=== PATIENT | female | born 1985 | race Caucasian/White ===

== ENCOUNTER 2017-06-25 08:15 | Emergency (ER) | payer MEDICAID, SELFPAY | END 2017-06-25 10:45 | disposition home or self-care (01) | PROVIDERS: Emergency Provider Family Medicine; Family Provider Family Medicine; Visit Provider Family Medicine | DX: R51 Headache (principal); R11.2 Nausea with vomiting, unspecified; R19.7 Diarrhea, unspecified | CPT/HCPCS: 80053; 81001; 81025; 83690; 84436; 84443; 84479; 85025; 87086; 96365; 96375; 99284; J2405 ==

== ENCOUNTER 2017-06-29 16:19 | Emergency (ER) | payer MEDICAID, SELFPAY | END 2017-06-29 17:20 | disposition home or self-care (01) | PROVIDERS: Emergency Provider Nurse Practitioner Family; Family Provider Family Medicine; Visit Provider Nurse Practitioner Family | DX: R19.7 Diarrhea, unspecified (principal); E78.5 Hyperlipidemia, unspecified; D64.9 Anemia, unspecified; E03.9 Hypothyroidism, unspecified; Z79.899 Other long term (current) drug therapy; Z88.8 Allergy status to other drugs, medicaments and biological substances | CPT/HCPCS: 87507; 99201 ==

== ENCOUNTER 2017-07-22 17:36 | Emergency (ER) | payer MEDICAID, SELFPAY ==
[2017-07-22 18:48] VITALS: BP 137/87; PULSE 68; RESP 20; TEMP 37.1; O2SAT 99; BMI 62.0
--- NOTE | 2017-07-22 19:21 | HMH.EDUTC ---
[facility] [place]ression: Elizabeth infection Disposition: Home, Self-Care Condition on Discharge: Good Instructions: DI for Yeast Infection-Skin, Yeast Infection-Skin Additional Instructions: Use powder as prescribed If you notice that area looks worse follow up with family doctor Apply powder to area and place pillow case to keep skin from touching skin Keep area clean and dry and apply Nystatin as directed Return if needed Prescriptions: Nystatin [Nystatin Topical Powder 30GM] 100,000 gm TP TID #1 bottle Referrals: Nhan Castillo MD [Primary Care Provider] - Time of Disposition: 19:48 Medical Decision Making - Medical Records Medical records reviewed: Yes: I reviewed the patient's medical records. Vital Signs: 07/22/17 18:48 Temperature 98.7 F Temperature Source Temporal Artery Scan Pulse Rate [Brachial] 68 Respiratory Rate 20 Blood Pressure [Right Arm] 137/87 Blood Pressure Mean [Right Arm] 103 Blood Pressure Source [Right Arm] Automatic Cuff Blood Pressure Position [Right Arm] Sitting 02 Sat by Pulse Oximetry 99 Oxygen Delivery Method Room Air - Bertin Inquiry Pt receiving controlled substance: No Bertin was queried for this patient: No [facility] [place] - General Stated complaint: Rash around c section scar Mode of Arrival: Ambulatory Source of Information: Patient Limitations: No Limitations Description of Symptoms (Recalled from Triage Doc. by RN): PT IS C/O INCISION ON STOMACH THAT HAS BEEN HEALED FOR 8+ MONTHS THAT IS NOW RED,IRRITATED AND DRAINING. HEENT Symptoms (Recalled from RN notes): No Resp Symptoms (Recalled from RN notes): No Skin Symptoms (Recalled from RN notes): Yes (RASH) MS Symptoms (Recalled from RN notes): No Functional Status (Recalled from RN notes): NA - History of Present Illness Provider Complaint: Patient states that she noticed that she has some redness, and moist in her old scar States that a friend of hers looked at it and told her they thought it was yeast and that she needed to get it checked - Related Data Home Medications Medication Instructions Recorded Confirmed cholecalciferol (vitamin D3) 2,000 2,000 unit PO ONCE 07/17/17 unit tablet fluticasone 50 mcg/actuation nasal 1 spray INTRANASAL ONCE 07/17/17 spray,suspension levothyroxine 50 mcg tablet PO 07/17/17 loratadine 10 mg tablet 10 mg PO ONCE 07/17/17 mecobalamin (vitamin B12) 1,000 1,000 mcg SUBLINGUAL QHS 07/17/17 mcg disintegrating tablet,sublingual norethindrone (contraceptive) 0.35 0.35 mg PO ONCE 07/17/17 mg tablet sertraline 100 mg tablet 200 mg PO Q24H tab 07/17/17 valacyclovir 500 mg tablet 500 mg PO DAILY PRN tab 07/17/17 Previous Rx's Medication Instructions Recorded Nystatin [Nystatin Topical Powder 100,000 gm TP TID #1 bottle 07/22/17 30GM] Allergies Allergy/AdvReac Type Severity Reaction Status Date / Time ethinyl estradiol Allergy Unknown Unverified 06/20/17 14:41 [From NUVARING] etonogestrel [From NUVARING] Allergy Unknown Unverified 06/20/17 14:41 fluconazole [FLUCONAZOLE] Allergy Unknown Unverified 06/20/17 14:41 guaifenesin [From MUCINEX] Allergy Unknown Unverified 06/20/17 14:41 Penicillins [PENICILLINS] Allergy Unknown Unverified 06/20/17 14:41 Sulfa (Sulfonamide Allergy Unknown Unverified 06/20/17 14:41 Antibiotics) [SULFA (SULFONAMIDE ANTIBIOTICS)] sulfamethoxazole Allergy Unverified 07/17/17 13:52 [From Bactrim] trimethoprim [From Bactrim] Allergy Unverified 07/17/17 13:52 - Worker's Comp Is this a Worker's Comp case?: No [facility] History I have reviewed the patient's past medical history: Yes - *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 Alcohol Intake: never - Psychiatric History Expresses thoughts of harming self/others: None Suicide Plan Description: No Plan ROS Obtained: Yes All systems reviewed & no additional complaints Physical Exam - General General appearance: alert, in no
--- NOTE | 2017-07-22 19:29 | ED_ITS ---
[facility] [place]: Elizabeth infection Disposition: Home, Self-Care Condition on Discharge: Good Instructions: DI for Yeast Infection-Skin, Yeast Infection-Skin Additional Instructions: Use powder as prescribed If you notice that area looks worse follow up with family doctor Apply powder to area and place pillow case to keep skin from touching skin Keep area clean and dry and apply Nystatin as directed Return if needed Prescriptions: Nystatin [Nystatin Topical Powder 30GM] 100,000 gm TP TID #1 bottle Referrals: Nhan Castillo MD [Primary Care Provider] - Time of Disposition: 19:48 Medical Decision Making - Medical Records Medical records reviewed: Yes: I reviewed the patient's medical records. Vital Signs: 07/22/17 18:48 Temperature 98.7 F Temperature Source Temporal Artery Scan Pulse Rate [Brachial] 68 Respiratory Rate 20 Blood Pressure [Right Arm] 137/87 Blood Pressure Mean [Right Arm] 103 Blood Pressure Source [Right Arm] Automatic Cuff Blood Pressure Position [Right Arm] Sitting 02 Sat by Pulse Oximetry 99 Oxygen Delivery Method Room Air - Bertin Inquiry Pt receiving controlled substance: No Bertin was queried for this patient: No [facility] [place] - General Stated complaint: Rash around c section scar Mode of Arrival: Ambulatory Source of Information: Patient Limitations: No Limitations Description of Symptoms (Recalled from Triage Doc. by RN): PT IS C/O INCISION ON STOMACH THAT HAS BEEN HEALED FOR 8+ MONTHS THAT IS NOW RED,IRRITATED AND DRAINING. HEENT Symptoms (Recalled from RN notes): No Resp Symptoms (Recalled from RN notes): No Skin Symptoms (Recalled from RN notes): Yes (RASH) MS Symptoms (Recalled from RN notes): No Functional Status (Recalled from RN notes): NA - History of Present Illness Provider Complaint: Patient states that she noticed that she has some redness, and moist in her old scar States that a friend of hers looked at it and told her they thought it was yeast and that she needed to get it checked - Related Data Home Medications Medication Instructions Recorded Confirmed cholecalciferol (vitamin D3) 2,000 2,000 unit PO ONCE 07/17/17 unit tablet fluticasone 50 mcg/actuation nasal 1 spray INTRANASAL ONCE 07/17/17 spray,suspension levothyroxine 50 mcg tablet PO 07/17/17 loratadine 10 mg tablet 10 mg PO ONCE 07/17/17 mecobalamin (vitamin B12) 1,000 1,000 mcg SUBLINGUAL QHS 07/17/17 mcg disintegrating tablet,sublingual norethindrone (contraceptive) 0.35 0.35 mg PO ONCE 07/17/17 mg tablet sertraline 100 mg tablet 200 mg PO Q24H tab 07/17/17 valacyclovir 500 mg tablet 500 mg PO DAILY PRN tab 07/17/17 Previous Rx's Medication Instructions Recorded Nystatin [Nystatin Topical Powder 100,000 gm TP TID #1 bottle 07/22/17 30GM] Allergies Allergy/AdvReac Type Severity Reaction Status Date / Time ethinyl estradiol Allergy Unknown Unverified 06/20/17 14:41 [From NUVARING] etonogestrel [From NUVARING] Allergy Unknown Unverified 06/20/17 14:41 fluconazole [FLUCONAZOLE] Allergy Unknown Unverified 06/20/17 14:41 guaifenesin [From MUCINEX] Allergy Unknown Unverified 06/20/17 14:41 Penicillins [PENICILLINS] Allergy Unknown Unverified 06/20/17
== END 2017-07-22 19:59 | disposition home or self-care (01) ==
LOC: ER 17:42 → UTC 17:55
PROVIDERS: Emergency Provider Nurse Practitioner; Family Provider Family Medicine; PCP Family Medicine
DX: B37.2 Candidiasis of skin and nail (principal); Z79.3 Long term (current) use of hormonal contraceptives; Z79.51 Long term (current) use of inhaled steroids; Z79.899 Other long term (current) drug therapy; Z88.0 Allergy status to penicillin; Z88.2 Allergy status to sulfonamides; Z88.8 Allergy status to other drugs, medicaments and biological substances
CPT/HCPCS: 99201

== ENCOUNTER → 2017-10-13 11:18 | Outpatient (CLI) | payer MEDICAID, SELFPAY ==
[2017-10-13 12:12] LABS: Hemoglobin A1C 5.1 % (0.0-7.0)
[2017-10-13 12:13] LABS: Basophils % 0.6 % (0.1-2.0); Eosinophils # 0.2 K/mm3 (0.0-0.4); Eosinophils % 3.1 % (0.1-12.0); Hematocrit 40.6 % (37.0-47.0); Lymphocytes # 1.6 K/mm3 (0.7-4.5); Lymphocytes % 27.2 K/mm3 (10-50); Mean Corpuscular HGB Conc 34.6 g/dL (31.8-35.4); Mean Corpuscular Hemoglobin 30.8 pg (27.0-31.2); Mean Corpuscular Volume 89.1 fl (81-99); Mean Platelet Volume 8.5 fl (7.4-10.4); Monocytes # 0.3 K/mm3 (0.1-1.0); Monocytes % 5.4 % (1.7-9.3); Neutrophils # 3.8 K/mm3 (1.8-7.8); Neutrophils % 63.7 % (37.0-80.0); Platelet Count 243 K/mm3 (142-424); Red Blood Count 4.55 M/mm3 (4.20-5.40); Red Cell Distribution Width 12.9 % (11.5-17.5); White Blood Count 5.9 K/mm3 (4.8-10.8)
[2017-10-13 13:05] LABS: Alanine Aminotransferase 35 U/L (12-78); Albumin Level 4.1 gm/dL (3.4-5.0); Albumin/Globulin Ratio 1.2 (1.1-1.8); Alkaline Phosphatase 92 U/L (46-116); Anion Gap 12.4 mEq/L (5-15); Aspartate Amino Transferase 25 U/L (15-37); Bilirubin,Total 0.4 mg/dL (0.2-1.0); Blood Urea Nitrogen 13 mg/dL (7-18); Carbon Dioxide 29 mmol/L (21.0-32.0); Chloride 107 mmol/L (98-107); Chol/HDL Ratio 5.3 (1-3.5); Cholesterol 224 mg/dL (140-200); Creatinine,Serum 0.78 mg/dL (0.55-1.02); Estimated Glomerular Filt Rate 85 ml/min (>60); Ferritin 69 ng/mL (8-388); GFR (African American) 102 ML/MIN (>60); Globulin 3.3 gm/dl (1.3-3.2); Glucose 89 mg/dL (74-106); HDL Cholesterol 42 mg/dL (29-89); Iron 78 ug/dl (28-170); LDL Cholesterol 143 mg/dL (0-130); Phosphorous 3.9 mg/dL (2.4-4.9); Potassium 4.4 mmoL/L (3.5-5.1); Sodium 144 mmol/L (136-145); Thyroid Stimulating Hormone 3.48 uIU/ml (0.358-3.740); Total Protein,Serum 7.4 gm/dL (6.4-8.2); Triglycerides 195 mg/dL (30-200); VLDL Cholesterol 39 mg/dL (0-40)
[2017-10-14 19:05] LABS: Folate 10.6 ng/mL (>3.0); Parathyroid Hormone Intact 51 pg/mL (15-65); Prealbumin 28 mg/dL (14-35); Vitamin D 25 Hydroxy 26.6 ng/mL (30.0-100.0)
[2017-10-18 06:45] LABS: Methylmalonic Acid 112 nmol/L (0-378)
[2017-10-18 16:15] LABS: Vitamin B1 123.9 nmol/L (66.5-200.0)
[2017-10-19 16:25] LABS: Vitamin E Alpha Tocopherol 7.9 mg/L (5.9-19.4)
[2017-10-20 10:39] LABS: Vitamin A 43.8 ug/dL (31.2-89.1)
== END ==
PROVIDERS: Visit Provider Physician Assistant
DX: E78.5 Hyperlipidemia, unspecified (principal); E53.8 Deficiency of other specified B group vitamins; E55.9 Vitamin D deficiency, unspecified; E66.01 Morbid (severe) obesity due to excess calories; G47.33 Obstructive sleep apnea (adult) (pediatric)
CPT/HCPCS: 36415; 80053; 80061; 82131; 82652; 82728; 82746; 83036; 83540; 83735; 83970; 84100; 84134; 84425; 84443; 84446; 84590; 85025

== ENCOUNTER → 2017-11-08 15:55 | Outpatient (POV) | payer MEDICAID, SELFPAY | PROVIDERS: Family Provider Family Medicine; PCP Family Medicine; Visit Provider Family Medicine | DX: Z00.00 Encounter for general adult medical examination without abnormal findings (principal) ==

== ENCOUNTER → 2017-11-21 09:27 | Outpatient (CLI) | payer MEDICAID, SELFPAY ==
--- NOTE | 2017-11-21 09:33 | MR_ITS ---
MR head/brain wo/w con HISTORY: Apical emphysema, memory loss, visual disturbance ITS.REASON: PAPILLEDEMA ORDERING PHYSICIAN: Delroy Johnson MD PATIENT AGE: 32 years Comparison: None TECHNIQUE: Standard multiplanar multiecho sequences are performed without and with gadolinium enhancement. FINDINGS: No midline shift, mass effect, intracranial hemorrhage, hydrocephalus, or enhancing lesions are evident. No evidence of acute infarction.. There is normal keane-white matter differentiation. The ventricles have an unremarkable appearance and are not dilated or slitlike no abnormal white matter signal intensity. The pituitary and optic chiasm are unremarkable. No cerebellar tonsillar ectopia. The cerebellopontine angles, cerebellum, and brainstem are unremarkable. No large aneurysms are evident. Smaller aneurysms may not be seen with this technique and may be better evaluated for with MRA if clinically warranted. There is a 17 mm and a 10 mm retention cyst in the floor the right maxillary sinus. IMPRESSION: 1. Negative MRI of the brain without and with contrast. 2. Right maxillary sinus retention cysts
== END ==
PROVIDERS: Family Provider Family Medicine; PCP Family Medicine
DX: H47.11 Papilledema associated with increased intracranial pressure (principal); H47 Other disorders of optic [2nd] nerve and visual pathways
CPT/HCPCS: 70553; A9576

== ENCOUNTER → 2017-11-24 10:17 | Outpatient (CLI) | payer MEDICAID, SELFPAY ==
--- NOTE | 2017-11-24 10:22 | XR_ITS ---
XR chest 2V Ordering Physician: Cher Barcenas Patient Age: 32 years: Female HISTORY: ITS.REASON: OBSTRUCTIVE SLEEP APNEA, VIT D B DEFICIENCY, MORBID OBESITY TECHNIQUE: PA and lateral chest COMPARISON :May 2016 portable chest FINDINGS Lungs appear clear with nothing definitely acute. Better expansion and lungs appear clear than on the previous May 2016 CXR exam . Heart is normal in size. Elis and mediastinal structures unremarkable. Chest wall unremarkable. Adequate inspiration observed with. Diaphragms down to the anterior fifth rib IMPRESSION: Lungs clear. No active disease.
== END ==
PROVIDERS: PCP Family Medicine; Visit Provider Physician Assistant
DX: G47.33 Obstructive sleep apnea (adult) (pediatric) (principal); E78.5 Hyperlipidemia, unspecified; E55.9 Vitamin D deficiency, unspecified; E53.8 Deficiency of other specified B group vitamins; E66.01 Morbid (severe) obesity due to excess calories
CPT/HCPCS: 71046

== ENCOUNTER → 2018-02-12 08:22 | Outpatient (CLI) | payer MEDICAID, SELFPAY ==
--- NOTE | 2018-02-12 08:24 | MR_ITS ---
MR angio head wo con HISTORY: Pseudotumor cerebri, severe headache, blurred vision with memory loss ITS.REASON: memory loss, headache ORDERING PHYSICIAN: Nati Healy MD PATIENT AGE: 32 years Comparison: 11/21/2017 TECHNIQUE: 3-D [id number] images obtained with 3-D mip and MRV reformats. FINDINGS: No aneurysm, AVM, or major intracranial occlusive process evident. Single shot MRV shows no evidence of sagittal sinus thrombosis. The anterior communicating artery is somewhat tortuous but there is no evidence of aneurysm IMPRESSION: Negative MRA of the brain
== END ==
PROVIDERS: Family Provider Family Medicine; PCP Family Medicine; Visit Provider Specialist
DX: G93.2 Benign intracranial hypertension (principal); R41.3 Other amnesia; R51 Headache
CPT/HCPCS: 70544

== ENCOUNTER → 2018-07-19 10:55 | Outpatient (CLI) | payer MEDICAID, SELFPAY ==
--- NOTE | 2018-07-19 10:57 | US_ITS ---
US transvaginal HISTORY: Chronic pelvic pain, abnormal uterine bleeding ITS.REASON: US T/V- Abnormal bleeding ORDERING PHYSICIAN: Cody Rausch MD PATIENT AGE: 33 years Comparison: None FINDINGS: The uterus is retroverted. The uterus measures 8 x 5.5 x 7 cm with a combined endometrial thickness of 6 mm. Small amount of fluid is present in the endometrial canal. There is an area of heterogeneous echogenicity involving the fundus of the uterus posteriorly measuring 2.8 x 2.3 cm compatible with a uterine fibroid.. No cul-de-sac fluid The left ovary is 3.4 x 1.9 cm with small follicles noted. The right ovary is 3 x 2.6 cm and contains a septated 2.4 x 2 cm cyst. IMPRESSION: 1. Retroverted uterus with a small amount of fluid in the endometrial canal with a 2.8 cm uterine fibroid 2. 2.4 cm complex right ovarian cyst
== END ==
PROVIDERS: PCP Family Medicine; Visit Provider Nurse Practitioner Obstetrics & Gynecology
DX: N92.6 Irregular menstruation, unspecified (principal)
CPT/HCPCS: 76830

== ENCOUNTER → 2018-07-26 16:44 | Outpatient (CLI) | payer MEDICAID, SELFPAY ==
--- NOTE | 2018-07-26 16:54 | XR_ITS ---
EXAM: XR thoracic spine 3V HISTORY: ITS.REASON: ACUTE BILATERAL THORACIC BACK PAIN Comparison: None FINDINGS: There is minimal lower thoracic lumbar curvature convex right. Mild multilevel degenerative disc disease is present in the thoracic spine. No fracture or dislocation. No lytic or blastic change. IMPRESSION: Thoracic spondylosis as described above, no acute finding
--- NOTE | 2018-07-26 16:54 | XR_ITS ---
EXAM: XR cervical spine 3V HISTORY: ITS.REASON: NECK MUSCLE SPASM ORDERING PHYSICIAN: FAZAL Tejeda PATIENT AGE: 33 years COMPARISON: None FINDINGS: Normal alignment. No fracture or dislocation. No lytic or blastic change. No significant degenerative change. The disc spaces are preserved. No evidence of cervical rib IMPRESSION: Negative cervical spine
== END ==
PROVIDERS: PCP Family Medicine; Visit Provider Physician Assistant
DX: M54.6 Pain in thoracic spine (principal); M62.830 Muscle spasm of back
CPT/HCPCS: 72040; 72072

== ENCOUNTER 2018-09-05 15:30 | Outpatient (RCR) | payer MEDICAID, SELFPAY ==
--- NOTE | 2018-07-31 10:50 | HMH.PTOPEV ---
PT Outpatient Evaluation Rehab PT Outpatient Evaluation Start: 07/31/18 09:26 Freq: Status: Active Protocol: Document 07/31/18 10:28 KALEY (Rec: 07/31/18 10:49 PHORNE [id number]) Electronically Signed By Jaspreet Menchaca, PT 07/31/18 10:28 Outpatient Therapy Subjective History Subjective History Pt is a 33 yowf with complaints of B trap pain and tightness which began 3-4 weeks ago. Pt reports going to a doctor 2.5 weeks ago and was prescribed muscle relaxers . Pt did not take them due to the pills size and was not sure if she could due to . Pt then saw another doctor 4 days later who referred to PT. Pt states she is in 4/10 pain at the moment, 4/10 at best and 10/10 at worst in her B traps which refer to lateral ribs. Pt reports tender to palpate along the upper trap area. Pt states pain is sharp and shooting, happens constantly and affects sleep. Pt reports having 7 children that she must take care of, and the kids hang on her neck. Pt seen to have forward head and thoracic kyphosis. Pt reports having gastric sleeve that aided in losing 100 pounds in 7 months, complicated C section, and hip I&D. Pt reports having anxiety, depression, and OCD. Pt was given HEP. Chief Complaint Pain Spasms Stiff Symptom Type Ache Throb Sharp Tingling Shooting Symptoms Relieved By Rest/Positioning Heat Symptoms Aggravated By Bending/Stooping Physical Activity Twisting Walking Lifting Prior Functional Limitations None Current Functional Limitations
--- NOTE | 2018-08-27 11:39 | HMH.RHREAS ---
Rehab Reassessment Rehab OP Re-assessment Start: 08/27/18 11:26 Freq: Status: Active Protocol: Document 08/27/18 11:31 KALEY (Rec: 08/27/18 11:39 PHORNE [id number]) Electronically Signed By Jaspreet Menchaca, PT 08/27/18 11:31 Rehab Re-assessment Subjective Subjective Pt reports having increased pain in upper traps and headaches. After treatment, pt decreased headaches to 0/10 and decreased pain. Objective Objective Notes cervical flexion-26 degrees cervical extension- 25 degrees cervical right rotation- 55 degrees cervical left rotation-50 degrees cervical right SB- 37 degrees Assessment Progress Assessment Progressing as Expected Assessment Notes Pt has increased ROM and MMT. Pt has stated a decrease in pain with movement as well as ROM. Patient goals met Pt has met all 9 short and prison goals. Goals Not Met none Revised Goals STG: Pt will increase cervical ROM 5 degrees in 3 weeks to increase ability to look in all directions. Pt will increase cervical MMT 4/5 in 3 weeks to tolerate home environment. LTG: Pt will increase cervical ROM 10 degrees in 6 weeks to increase ability to look in all directions Pt will increase cervical MMT 4+/5 grade in 6 weeks to tolerate home environment. Plan Plan Cervical ROM, cervical strength, scapular stability, core strength, stretching, modalities as needed, manual therapy as needed, endurance. Frequency of Therapy 2x/week Duration of therapy 6 weeks Time and Billing Re-Eval Time 10 Re-Eval Billing Units 1 PHYSICIAN CERTIFICATION: I certify the specified therapy services for Malathi Schilling are required, authorized, and reviewed every 30 days.
== END 2018-09-05 15:35 | disposition home or self-care (01) ==
LOC: PT 15:30
PROVIDERS: Visit Provider Family Medicine
DX: M62.838 Other muscle spasm (principal); M54.2 Cervicalgia; M54.9 Dorsalgia, unspecified
CPT/HCPCS: 97010; 97014; 97035; 97110; 97140; 97163; 97164; G0283

== ENCOUNTER → 2018-09-21 08:24 | Outpatient (POV) | payer MEDICAID, SELFPAY ==
[2018-09-21 08:43] VITALS: BP 131/80; PULSE 68; RESP 18; O2SAT 99
--- NOTE | 2018-09-21 09:15 | HMH.PMCON ---
Assessment and Plan (1) Headache Current visit: Yes Status: Acute Qualifiers: Headache type: unspecified Headache chronicity pattern: unspecified pattern Intractability: not intractable Qualified Code(s): R51 - Headache Category: Medical Code(s): R51 - Headache (2) Pseudotumor cerebri syndrome Current visit: Yes Status: Acute Category: Medical Code(s): G93.2 - Benign intracranial hypertension - Assessment and plan all Dx Assessment and Plan for all problems:: We will plan on lumbar puncture for this patient which will be diagnostic and therapeutic to obtain opening and closing pressures and cell count differential with Gram stain. This patient has severe anxiety so we will have an IV placed in do conscious sedation with Versed and do this procedure under fluoroscopy. We will schedule this patient next week. HPI - Data of Consult Patient: new to practice Consult date: 09/21/18 Requesting Physician: Adriel Ordaz MD Primary Care Provider: Nhan Castillo MD - Consult Narrative Reason for consult: Consult for lumbar puncture History of present illness: Ms. Schilling is a 33 year old female who is referred by Dr. Healy with diagnosis of pseudotumor cerebri. Patient has a headache all the time. She does have some occasional visual changes. She is sent for lumbar puncture diagnostic and therapeutic to determine opening pressures, cell count differential, Gram stain, closing pressures to see if pressures are abnormal indicative of pseudotumor cerebri. CC: Adriel Ordaz MD [facility] History I have reviewed the patient's past medical history: Yes 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: Reports:: Depression, Ulcer, Urinary Tract Infection Denies:: Cancer, Diabetes Mellitus Type 1, Diabetes Mellitus Type 2, MRSA *Have you ever received a pneumonia vaccine?: No *Have you received a flu vaccine this season?: No Other 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: Reports: Thyroid Disease Other Surgeries: Yes: Bariatric Surgery, , Dilation and Curettage, EGD, Other Amputation: No Fractures: No - *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 Smoking Status: Former smoker Alcohol Intake: never Alcohol Intake Frequency:: other Substance Use Type: denies use *Occupational Status:: unemployed Housing: house Household Members: spouse, family *Travel in the last 8 weeks: None - Psychiatric History Expresses thoughts of harming self/others: None Suicide Plan Description: No Plan Pschychiatric History:: Reports:: Depression Family Hx:: Hypertension, Coronary Artery Disease, Stroke Review of Systems - Review of Systems Review of systems:: pertinent systems reviewed and negative unless documented below - ENT Reports headache(s) Meds Home Medications Medication Instructions Recorded Confirmed Type cholecalciferol (vitamin D3) 2,000 2,000 unit PO ONCE 07/17/17 09/21/18 History unit tablet mecobalamin (vitamin B12) 1,000 1,000 mcg SUBLINGUAL QHS 07/17/17 09/21/18 History mcg disintegrating tablet,sublingual sertraline 100 mg tablet 200 mg PO Q24H tab 07/17/17 09/21/18 History levothyroxine 88 mcg tablet 88 mcg PO DAILY 30 Days #30 10/25/17 09/21/18 History Norethindrone 0.35 mg PO DAILY 09/21/18 09/21/18 History Terconazole 1 appful VAGINAL QHS 09/21/18 09/21/18 History Allergies Allergy/AdvReac Type Severity Reaction Status Date / Time ethinyl estradiol Allergy Unknown Verified 09/21/18 08:51 [From NUVARING] etonogestrel [From NUVARING] Allergy Unknown Verified 09/21/18 08:51 fluconazole [FLUCONAZOLE] Allergy Unknown Verified 09/21/18 08:51 guaifenesin [From MUCINEX] Allergy Unknown Verified 09/21/18 08:51 Penicillins [PENICILLINS] Allergy Unknown Verified 09/21/18 08:51 Sulfa (Sulfonamide Allergy Unknown Verified 09/21/18 08:51 Antibiotics) [SULFA (SULFONAMIDE ANTIBIOTICS)] sulfamethoxazole Allergy Verified 09/21/18 08:51 [From Bactrim] trimethoprim [From Bactrim] Allergy Verified 09/21/18 08:51 Objective
--- NOTE | 2018-09-21 09:20 | P.CONS_ITS ---
Assessment and Plan (1) Headache Current visit: Yes Status: Acute Qualifiers: Headache type: unspecified Headache chronicity pattern: unspecified pattern Intractability: not intractable Qualified Code(s): R51 - Headache Category: Medical Code(s): R51 - Headache (2) Pseudotumor cerebri syndrome Current visit: Yes Status: Acute Category: Medical Code(s): G93.2 - Benign intracranial hypertension - Assessment and plan all Dx Assessment and Plan for all problems:: We will plan on lumbar puncture for this patient which will be diagnostic and therapeutic to obtain opening and closing pressures and cell count differential with Gram stain. This patient has severe anxiety so we will have an IV placed in do conscious sedation with Versed and do this procedure under fluoroscopy. We will schedule this patient next week. HPI - Data of Consult Patient: new to practice Consult date: 09/21/18 Requesting Physician: Adriel Ordaz MD Primary Care Provider: Nhan Castillo MD - Consult Narrative Reason for consult: Consult for lumbar puncture History of present illness: Ms. Schilling is a 33 year old female who is referred by Dr. Healy with diagnosis of pseudotumor cerebri. Patient has a headache all the time. She does have some occasional visual changes. She is sent for lumbar puncture diagnostic and therapeutic to determine opening pressures, cell count differential, Gram stain, closing pressures to see if pressures are abnormal indicative of pseudotumor cerebri. CC: Adriel Ordaz MD [facility] History I have reviewed the patient's past medical history: Yes 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: Reports:: Depression, Ulcer, Urinary Tract Infection Denies:: Cancer, Diabetes Mellitus Type 1, Diabetes Mellitus Type 2, MRSA *Have you ever received a pneumonia vaccine?: No *Have you received a flu vaccine this season?: No Other 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: Reports: Thyroid Disease Other Surgeries: Yes: Bariatric Surgery, , Dilation and Curettage, EGD, Other Amputation: No Fractures: No - *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 Smoking Status: Former smoker Alcohol Intake: never Alcohol Intake Frequency:: other Substance Use Type: denies use *Occupational Status:: unemployed Housing: house Household Members: spouse, family *Travel in the last 8 weeks: None - Psychiatric History Expresses thoughts of harming self/others: None Suicide Plan Description: No Plan Pschychiatric History:: Reports:: Depression Family Hx:: Hypertension, Coronary Artery Disease, Stroke Review of Systems - Review of Systems Review of systems:: pertinent systems reviewed and negative unless documented below - ENT Reports headache(s) Meds Home Medications Medication Instructions Recorded Confirmed Type cholecalciferol (vitamin D3) 2,000 2,000 unit PO ONCE 07/17/17 09/21/18 History unit tablet mecobalamin (vitamin B12) 1,000 1,000 mcg SUBLINGUAL QHS 07/17/17 09/21/18 History mcg disintegrating tablet,sublingual sertraline 100 mg tablet 200 mg PO Q24H tab 07/17/17 09/21/18 History levothyroxine 88 mcg tablet 88 mcg PO DAILY 30 Days #30 10/25/17 09/21/18 History Norethindrone 0.35 mg PO DAILY 09/21/18 09/21/18 History Terconazole 1 appful VAGINAL QHS 09/21/18 09/21/18 History Allergies Allergy/AdvReac Type Severity Reaction Status Date / Time ethinyl estradiol Allergy Unknown Verified 09/21/18 08:5
== END ==
PROVIDERS: PCP Family Medicine; Visit Provider Anesthesiology
DX: R51 Headache (principal); G93.2 Benign intracranial hypertension
CPT/HCPCS: 99201

== ENCOUNTER → 2018-09-28 07:38 | Outpatient (CLI) | payer MEDICAID, SELFPAY ==
--- NOTE | 2018-09-28 09:48 | P.PCN_ITS ---
- Procedure Date: 09/28/18 Time: 09:45 Anesthesiologist:: Adriel Ordaz MD Complications:: None Pre-procedure Diagnosis:: Pseudotumor cerebri Post-procedure Diagnosis:: Same Indications for Procedure:: This patient is a pleasant 33-year-old white female who is referred by Dr. Healy for diagnostic and therapeutic lumbar puncture for suspected pseudotumor cerebri. She is having some muscle spasms with occasional headaches. She has had some visual changes. We will do diagnostic/therapeutic lumbar puncture today. This will be done under fluoroscopy with sedation. Procedure Details:: Lumbar puncture Informed consent was obtained and the risk and benefits of the procedure was explained to the patient. Patient was taken to the procedure room. She was pl aced in left lateral decubitus position. She was prepped under sterile conditions. C-arm fluoroscopy was used to view the L4-L5 interspace. The skin and subtest tissues were anesthetized using lidocaine. A 20-gauge spinal needle was inserted and under fluoroscopic guidance advanced into the L4-5 interspace until clear CSF was obtained. The patient was sedated with 3 mg of Versed just prior to the procedure. Opening pressures were found to be 17 cm of water. Closing pressures were found to be 10 cm of water. We withdrew approximately 12 mL's of clear CSF placed into 4 tubes. Patient tolerated the procedure well with no complications. Plan and Disposition:: We will follow-up with her as needed. Again opening pressures were 17 cm of water and closing pressures were 10 cm of water.
[2018-09-28 11:17] LABS: Total Protein,CSF 40.5 mg/dL (15-45)
[2018-09-28 11:28] LABS: Glucose,CSF 51 mg/dL (40-70); Total Protein,CSF 47.9 mg/dL (15-45)
[2018-09-28 13:40] LABS: Red Blood Cell,CSF 182 cells/uL (0); Volume,CSF 6 mL; White Blood Cell,CSF 1 cells/uL (0-5)
[2018-09-28 13:41] LABS: Volume,CSF 6 mL; White Blood Cell,CSF 7 cells/uL (0-5)
[2018-09-28 13:45] LABS: Mononuclear WBCs,CSF 0 %
[2018-09-28 13:52] LABS: Appearance,CSF Hazy (Clear)
[2018-09-28 13:59] LABS: Red Blood Cell,CSF 1725 cells/uL (0)
[2018-09-28 14:03] LABS: Polynuclear WBCs,CSF 0 %
[2018-09-28 14:11] LABS: Mononuclear WBCs,CSF 1 %; Polynuclear WBCs,CSF 0 %
== END ==
PROVIDERS: PCP Family Medicine; Visit Provider Anesthesiology
DX: G93.2 Benign intracranial hypertension (principal)
CPT/HCPCS: 62270; 82945; 84155; 87070; 87205; 89051

== ENCOUNTER 2018-10-01 09:48 | Outpatient (POV) | payer MEDICAID, SELFPAY ==
[2018-10-01 09:58] VITALS: BP 132/78; PULSE 61; RESP 18; O2SAT 98; BMI 43.9
--- NOTE | 2018-10-01 10:27 | P.CONS_ITS ---
[facility] Pain Management SOAP Note Subjective:: Patient is a pleasant 33-year-old white female who presents today after a lumbar puncture that was on Monday. She states she has had a headache. On further questioning she states she had a headache prior to the lumbar puncture and at this time it just has not gotten any better. Patient states that at first it got better when she laid down however now it does not make a difference what position she is in. Patient has a history of migraines. Patient states she is had the gastric sleeve and is unable to take water. Patient had a total of 3 bottles of water in the last 2 days. Patient has taken a total of 3 individual Tylenols in the last 2 days. Patient states she is still breast-feeding her 2-1/2-year-old and wants to be careful about what she is putting inside her body. She rates her pain today a 7 out of 10. She is describing a diffuse headache. ROS General: no recent weight change, no fever, no sleep disturbances Respiratory: no cough, no shortness of air, no recurring pulmonary infections Cardiovascular/Peripheral Vascular: No chest pain, No palpitations, no edema, no shortness of breath. Gastrointestinal: no incontinence, normal bowel movements reported Genitourinary: no incontinence Musculoskeletal: Headache Psychiatric: normal mood/ affect Neurological: [denies weakness in extremities], [denies balance issues] Objective:: Physical Exam General: Alert and oriented x3, no acute distress, pleasant and cooperative, [on room air] Lungs: Resps E/U, Symmetrical chest expansion, Eyes: PERRL Musculoskeletal: deep tendon reflexes normal, strength in upper and lower extremities [5/5], normal gait noted Neurological: speech clear, helper coordinator equal, no gross sensory deficits Assessment:: Headache Plan:: We will send the patient for fluids and Toradol. I do not believe that a blood patch would be necessary at this time. The patient is in no distress. I will follow-up with the patient in 1 week reassess her symptoms at that time. Dr. Ordaz has reviewed this note and agrees with this plan of care. This note was dictated using voice recognition software and may contain errors or omissions
[2018-10-01 10:58] VITALS: BP 129/77; PULSE 52; RESP 18; TEMP 36.6; O2SAT 99
[2018-10-01 11:03] VITALS: RESP 18
[2018-10-01 12:00] VITALS: BP 126/69; PULSE 59; RESP 18; TEMP 36.7; O2SAT 98
== END 2018-10-01 12:00 | disposition home or self-care (01) ==
LOC: SC.PAIN 09:48 → INF 10:26
PROVIDERS: PCP Family Medicine; Visit Provider Clinical Nurse Specialist Family Health
DX: R51 Headache (principal)
CPT/HCPCS: 96360; 96374

== ENCOUNTER → 2018-12-14 07:09 | Outpatient (CLI) | payer MEDICAID, SELFPAY ==
[2018-12-14 07:48] LABS: Hemoglobin A1C 4.9 % (0.0-7.0)
[2018-12-14 08:11] LABS: Chol/HDL Ratio 4.3 (1-3.5); Cholesterol 205 mg/dL (140-200); HDL Cholesterol 48 mg/dL (29-89); LDL Cholesterol 135 mg/dL (0-130); Triglycerides 111 mg/dL (30-200); VLDL Cholesterol 22 mg/dL (0-40)
== END ==
PROVIDERS: Visit Provider Physician Assistant
DX: E78.5 Hyperlipidemia, unspecified (principal); E66.01 Morbid (severe) obesity due to excess calories
CPT/HCPCS: 36415; 80061; 83036

== ENCOUNTER 2018-12-22 14:34 | Emergency (ER) | payer MEDICAID, SELFPAY ==
[2018-12-22 14:56] VITALS: BP 117/73; PULSE 82; RESP 22; TEMP 37.1; O2SAT 98; BMI 42.5
--- NOTE | 2018-12-22 15:01 | HMH.EDUTC ---
[facility] [place] Clinical Impression: Acute bacterial sinusitis Disposition: Home, Self-Care Condition on Discharge: Good Instructions: Sinusitis, DI for Sinusitis Additional Instructions: Start antibiotic patient to take as ordered for a full length of time even if you feel better. Sinus infections do not get better overnight. It may take 2-3 days to notice much improvement so be sure to use conservative measures as discussed for symptoms. Flonase 1 spray each nostril daily to help with nasal congestion, sinus and ear pressure/information Increase fluids Humidifier/vaporizer as needed Tylenol and ibuprofen as needed for fever or pain. If symptoms do not improve or get worse return or be seen in the ER Follow-up with primary care this week Prescriptions: Fluticasone Propionate [Flonase 50mcg nasal spray 16gm] 1 spr NS DAILY 7 Days #1 bottle Azithromycin [Zithromax 250mg tab] 250 mg PO DIRECTED #6 tab Referrals: Nhan Castillo MD [Primary Care Provider] - Time of Disposition: 15:06 Medical Decision Making - Bertin Inquiry Pt receiving controlled substance: No Vital Signs: 12/22/18 14:56 Temperature 98.7 F Temperature Source Oral Pulse Rate [Right Radial] 82 Respiratory Rate 22 Blood Pressure [Right Arm] 117/73 Blood Pressure Mean [Right Arm] 87 Blood Pressure Source [Right Arm] Automatic Cuff Blood Pressure Position [Right Arm] Sitting 02 Sat by Pulse Oximetry 98 Oxygen Delivery Method Room Air [facility] [place] - General Chief complaint: Urgent [facility] Stated complaint: congestion, cough Time Seen by Provider: 12/22/18 15:02 Mode of Arrival: Ambulatory Source of Information: Patient Limitations: No Limitations Description of Symptoms (Recalled from Triage Doc. by RN): C/O COUGH, CONGESTION HEENT Symptoms (Recalled from RN notes): No Resp Symptoms (Recalled from RN notes): Yes (COUGH, CONGESTION) Skin Symptoms (Recalled from RN notes): No MS Symptoms (Recalled from RN notes): No Functional Status (Recalled from RN notes): N/A - History of Present Illness Provider Complaint: 33 yr old female presents for coughing up thick sputum, fever, body aches and chest congestion since monday and getting worse. Pt states other family also ill and has been on antibotics. - Related Data Home Medications Medication Instructions Recorded Confirmed cholecalciferol (vitamin D3) 2,000 2,000 unit PO ONCE 07/17/17 10/01/18 unit tablet sertraline 100 mg tablet 200 mg PO Q24H tab 07/17/17 10/01/18 levothyroxine 88 mcg tablet 88 mcg PO DAILY 30 Days #30 10/25/17 10/01/18 Terconazole 1 appful VAGINAL QHS 09/21/18 10/01/18 Cyanocobalamin (Vitamin B-12) 1,000 mcg IJ MONTHLY 10/01/18 10/01/18 [B-12 Compliance] Previous Rx's Medication Instructions Recorded Azithromycin [Zithromax 250mg 250 mg PO DIRECTED #6 tab 12/22/18 tab] Fluticasone Propionate [Flonase 1 spr NS DAILY 7 Days #1 bottle 12/22/18 50mcg nasal spray 16gm] Allergies Allergy/AdvReac Type Severity Reaction Status Date / Time ethinyl estradiol Allergy Unknown Verified 10/01/18 11:20 [From NUVARING] etonogestrel [From NUVARING] Allergy Unknown Verified 10/01/18 11:20 fluconazole [FLUCONAZOLE] Allergy Unknown Verified 10/01/18 11:20 guaifenesin [From MUCINEX] Allergy Unknown Verified 10/01/18 11:20 Penicillins [PENICILLINS] Allergy Unknown Verified 10/01/18 11:20 Sulfa (Sulfonamide Allergy Unknown Verified 10/01/18 11:20 Antibiotics) [SULFA (SULFONAMIDE ANTIBIOTICS)] sulfamethoxazole Allergy Verified 10/01/18 11:20 [From Bactrim] trimethoprim [From Bactrim] Allergy Verified 10/01/18 11:20 - Worker's Comp Is this a Worker's Comp case?: No [facility] History - Hepatitis A Screen Drug use history?: No High risk sexual behaviors?: No History of sexually transmitted infection?: No Currently employed?: No Childcare worker?: No Do you have indoor plumbing?: Yes Do you have
--- NOTE | 2018-12-22 15:05 | ED_ITS ---
[facility] [place]: Acute bacterial sinusitis Disposition: Home, Self-Care Condition on Discharge: Good Instructions: Sinusitis, DI for Sinusitis Additional Instructions: Start antibiotic patient to take as ordered for a full length of time even if you feel better. Sinus infections do not get better overnight. It may take 2-3 days to notice much improvement so be sure to use conservative measures as discussed for symptoms. Flonase 1 spray each nostril daily to help with nasal congestion, sinus and ear pressure/information Increase fluids Humidifier/vaporizer as needed Tylenol and ibuprofen as needed for fever or pain. If symptoms do not improve or get worse return or be seen in the ER Follow-up with primary care this week Prescriptions: Fluticasone Propionate [Flonase 50mcg nasal spray 16gm] 1 spr NS DAILY 7 Days #1 bottle Azithromycin [Zithromax 250mg tab] 250 mg PO DIRECTED #6 tab Referrals: Nhan Castillo MD [Primary Care Provider] - Time of Disposition: 15:06 Medical Decision Making - Bertin Inquiry Pt receiving controlled substance: No Vital Signs: 12/22/18 14:56 Temperature 98.7 F Temperature Source Oral Pulse Rate [Right Radial] 82 Respiratory Rate 22 Blood Pressure [Right Arm] 117/73 Blood Pressure Mean [Right Arm] 87 Blood Pressure Source [Right Arm] Automatic Cuff Blood Pressure Position [Right Arm] Sitting 02 Sat by Pulse Oximetry 98 Oxygen Delivery Method Room Air [facility] [place] - General Chief complaint: Urgent Treatment Center Stated complaint: congestion, cough Time Seen by Provider: 12/22/18 15:02 Mode of Arrival: Ambulatory Source of Information: Patient Limitations: No Limitations Description of Symptoms (Recalled from Triage Doc. by RN): C/O COUGH, CONGESTION HEENT Symptoms (Recalled from RN notes): No Resp Symptoms (Recalled from RN notes): Yes (COUGH, CONGESTION) Skin Symptoms (Recalled from RN notes): No MS Symptoms (Recalled from RN notes): No Functional Status (Recalled from RN notes): N/A - History of Present Illness Provider Complaint: 33 yr old female presents for coughing up thick sputum, fever, body aches and chest congestion since monday and getting worse. Pt states other family also ill and has been on antibotics. - Related Data Home Medications Medication Instructions Recorded Confirmed cholecalciferol (vitamin D3) 2,000 2,000 unit PO ONCE 07/17/17 10/01/18 unit tablet sertraline 100 mg tablet 200 mg PO Q24H tab 07/17/17 10/01/18 levothyroxine 88 mcg tablet 88 mcg PO DAILY 30 Days #30 10/25/17 10/01/18 Terconazole 1 appful VAGINAL QHS 09/21/18 10/01/18 Cyanocobalamin (Vitamin B-12) 1,000 mcg IJ MONTHLY 10/01/18 10/01/18 [B-12 Compliance] Previous Rx's Medication Instructions Recorded Azithromycin [Zithromax 250mg 250 mg PO DIRECTED #6 tab 12/22/18 tab] Fluticasone Propionate [Flonase 1 spr NS DAILY 7 Days #1 bottle 12/22/18 50mcg nasal spray 16gm] Allergies Allergy/AdvReac Type Severity Reaction Status Date / Time ethinyl estradiol Allergy Unknown Verified 10/01/18 11:20 [From NUVARING] etonogestrel [From NUVARING] Allergy Unknown Verified 10/01/18 11:20
[2018-12-22 15:27] VITALS: BP 117/73; PULSE 82; RESP 22; TEMP 37.1; O2SAT 98
== END 2018-12-22 15:27 | disposition home or self-care (01) ==
PROVIDERS: Emergency Provider Nurse Practitioner Family; PCP Family Medicine
DX: J01.90 Acute sinusitis, unspecified (principal); B96.89 Other specified bacterial agents as the cause of diseases classified elsewhere; F33.1 Major depressive disorder, recurrent, moderate; Z88.0 Allergy status to penicillin; Z88.2 Allergy status to sulfonamides
CPT/HCPCS: 99201

== ENCOUNTER → 2018-12-31 11:46 | Outpatient (CLI) | payer MEDICAID, SELFPAY ==
[2018-12-31 13:20] LABS: T4 (Thyroxine) 6.2 ug/dl (4.7-13.3); Thyroid Stimulating Hormone 3.62 uIU/ml (0.358-3.740)
[2019-01-01 16:26] LABS: Triiodothyronine (T3) Total 83 ng/dL (71-180); Vitamin B12 486 pg/mL (232-1245)
== END ==
PROVIDERS: PCP Physician Assistant; Visit Provider Specialist
DX: R00.1 Bradycardia, unspecified (principal); R53.83 Other fatigue; R51 Headache; G47.33 Obstructive sleep apnea (adult) (pediatric); Z99.89 Dependence on other enabling machines and devices
CPT/HCPCS: 36415; 82607; 84436; 84443; 84480; 93005; 93225; 93226

== ENCOUNTER → 2019-01-09 12:29 | Outpatient (CLI) | payer MEDICAID, SELFPAY | PROVIDERS: PCP Family Medicine; Visit Provider Specialist | DX: G47.33 Obstructive sleep apnea (adult) (pediatric) (principal); R00.1 Bradycardia, unspecified; R51 Headache; R53.83 Other fatigue; Z99.89 Dependence on other enabling machines and devices | CPT/HCPCS: 94762 ==

== ENCOUNTER → 2019-01-17 08:38 | Outpatient (CLI) | payer MEDICAID, SELFPAY ==
--- NOTE | 2019-01-17 08:39 | CA_ITS ---
PROCEDURE: 2-D M-mode and color Doppler study INDICATIONS FOR THE TEST: Chest painX COPD Heart Murmur Tobacco Smoking Palpitations Fatigue Syncope Edema Hypertension Diabetes Mellitus Rheumatic Fever SOBXDOEXObesityXHyperlipidemia 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 HD Additional History BRADYCARDIA,ABN EKG PATIENT INFORMATION HEIGHT: 69 WEIGHT:284 GENDER: Female B/P:121/73 2-D/M-MODE INTERPRETATION: 2-D MEASUREMENTS OBSERVED VALUES IN CMS Right Ventricular Dimension (RVDd) 2.9 Interventricular Septum (Thickness)(IVsd) .9 Left Ventricular Internal Dimensions(LVIDd) 5.7 Left Ventricular Posterior Wall (Thickness)(LVPWd) .9 Aortic Root 3.3 Aortic Cusp Separation 1.8 Left Atrial Dimensions (LAD) 3.3 2D 1. Left atrium is normal size, left ventricle is normal size, there is no concentric left ventricular hypertrophy, visually estimated ejection fraction of 55% with no regional wall motion abnormality. 2. The right atrium and right ventricle are mildly enlarged with normal contractility. 3. The aortic, mitral and tricuspid valve are grossly normal. 4. The pulmonic valve is poorly visualized. 5. No significant pericardial effusion noted. DOPPLER INTERROGATION: Doppler interrogation of the aortic, mitral and tricuspid valvular presence of mild mitral and tricuspid regurgitation, tricuspid regurgitation jet velocity is inadequate for calculation of the right ventricle is pressure, diastolic parameters are within normal range. CONCLUSION: 1. Normal left ventricular size, preserved left ventricular systolic function, visually estimated ejection fraction 55% with no regional wall motion abnormality, diastolic parameters are within normal range. 2. Mildly enlarged right ventricle with normal contractility. 3. Mild mitral and tricuspid regurgitation 4. No significant pericardial effusion noted.
== END ==
PROVIDERS: PCP Family Medicine; Visit Provider Internal Medicine Cardiovascular Disease
DX: R00.1 Bradycardia, unspecified (principal); R06.09 Other forms of dyspnea; R07.89 Other chest pain; R94.31 Abnormal electrocardiogram [ECG] [EKG]
CPT/HCPCS: 93017; 93306

== ENCOUNTER → 2019-01-24 11:37 | Outpatient (CLI) | payer MEDICAID, SELFPAY ==
--- NOTE | 2019-01-24 11:38 | NM_ITS ---
History:TACHYCARDIA, CHEST TIGHTNESS Procedure: Patient received a 0.4 mg of intravenous Lexiscan, resting heart rate 46 bpm, resting blood pressure 120/69, with Lexiscan maximum heart rate achieve was 97 bpm which is less than 85 % of the maximum predicted heart rate and blood pressure was 111/61. WIth Lexiscan patient denied any complaint of chest pain. Electrocardiogram: Resting electrocardiogram showed sinus bradycardia right bundle branch block, with Lexiscan there is less than 1.5mm ST segment depression noted from the baseline EKG. The EKG portion of the Lexiscan Myoview is nondiagnostic. Cardias Stress and Resting SPECT images: Cardias Stress and Resting SPECT images were obtained using technetium 99m Myoview 31.9 mCi stress and 11.19 mCi at rest. Gated SPECT further analysis of segmental wall motion and calculation of ejection fraction also done. Cardiac stress and resting SPECT show a mild fixed defect in the anterior wall with normal contractility gated SPECT is likely secondary to soft tissue attenuation, no reversible ischemia seen, the computer derived ejection fraction is over 47% with no regional wall motion abnormality, right ventricle is normal size and contractility. Conclusion: 1. The EKG portion of the Lexiscan Myoview is nondiagnostic. 2. No scintigraphic evidence of reversible ischemia seen, computer derived ejection fraction is 47 % with no regional wall motion abnormality, right ventricle is normal size and contractility. 3. Normal Lexiscan Myoview study.
--- NOTE | 2019-01-24 13:26 | HMH.ITSHM ---
Current Home Medications as stated by this patient Malathi Schilling or field support representative. []ZOLOFT LEVOTHYROXINE B12 VITAMIN D3
== END ==
PROVIDERS: PCP Family Medicine; Visit Provider Internal Medicine Cardiovascular Disease
DX: R00.1 Bradycardia, unspecified (principal); R06.09 Other forms of dyspnea; R07.89 Other chest pain; R94.31 Abnormal electrocardiogram [ECG] [EKG]
CPT/HCPCS: 78452; 93017; A9502; J2785

== ENCOUNTER → 2019-01-25 13:26 | Outpatient (CLI) | payer MEDICAID, SELFPAY ==
--- NOTE | 2019-01-25 13:30 | US_ITS ---
US transvaginal HISTORY: ITS.REASON: US T/V-Abnormal Bleeding ORDERING PHYSICIAN: Cody Rausch MD PATIENT AGE: 33 years Comparison: None FINDINGS: Uterus is retroverted or retroflexed and measures 8.2 x 5.8 x 5.8 cm. Anterior fundal myometrial area shows a small hypoechoic focus measuring 3.4 x 2.2 cm. this is adjacent to the endometrial stripe. Endometrial thickness is 5.9 mm. There is a small amount of cul-de-sac fluid. Left ovary is 4.3 x 2.8 x 3.3 cm with normal blood flow. There are some small left ovarian follicles however there is a rounded hypoechoic focus with distal acoustic enhancement measuring 3.3 cm which could be a small hemorrhagic cyst. Right ovary is 4.2 x 2.3 x 2.5 cm with normal blood flow and small follicles. Impression: Anterior fundal uterine fibroid measuring 3.4 cm. Bilateral ovarian follicles. Probable hemorrhagic left ovarian cyst. Small amount of cul-de-sac fluid likely physiological.
== END ==
PROVIDERS: PCP Family Medicine; Visit Provider Nurse Practitioner Obstetrics & Gynecology
DX: N92.6 Irregular menstruation, unspecified (principal)
CPT/HCPCS: 76830

== ENCOUNTER → 2019-03-11 11:19 | Outpatient (CLI) | payer MEDICAID, SELFPAY ==
[2019-03-11 13:08] LABS: HCG,Quantitative 39 mIU/mL
== END ==
PROVIDERS: Visit Provider Nurse Practitioner Obstetrics & Gynecology
DX: Z34.90 Encounter for supervision of normal pregnancy, unspecified, unspecified trimester (principal)
CPT/HCPCS: 36415; 84702

== ENCOUNTER → 2019-03-13 07:55 | Outpatient (CLI) | payer MEDICAID, SELFPAY ==
[2019-03-13 10:29] LABS: HCG,Quantitative 73 mIU/mL
== END ==
PROVIDERS: Visit Provider Nurse Practitioner Obstetrics & Gynecology
DX: Z32.00 Encounter for pregnancy test, result unknown (principal)
CPT/HCPCS: 36415; 84702

== ENCOUNTER → 2019-03-20 16:15 | Outpatient (CLI) | payer MEDICAID, SELFPAY ==
[2019-03-20 17:04] LABS: HCG,Quantitative 183 mIU/mL
== END ==
PROVIDERS: Visit Provider Nurse Practitioner Obstetrics & Gynecology
DX: Z32.00 Encounter for pregnancy test, result unknown (principal)
CPT/HCPCS: 36415; 84702

== ENCOUNTER → 2019-03-27 07:45 | Outpatient (CLI) | payer MEDICAID, SELFPAY ==
[2019-03-27 10:43] LABS: HCG,Quantitative 1415 mIU/mL
== END ==
PROVIDERS: Visit Provider Nurse Practitioner Obstetrics & Gynecology
DX: Z34.90 Encounter for supervision of normal pregnancy, unspecified, unspecified trimester (principal)
CPT/HCPCS: 36415; 84702

== ENCOUNTER → 2019-03-28 08:37 | Outpatient (CLI) | payer MEDICAID, SELFPAY ==
--- NOTE | 2019-03-28 08:40 | US_ITS ---
PROCEDURE: US OB TRANSVAGINAL CLINICAL INDICATION: US OB Dates spotting during Early OB with spotting and cramping COMPARISON: TRANVAG US transvaginal from 01/25/2019 FINDINGS: The uterus is retroverted. There is a small anechoic area within the fundus of the uterus measuring 6 x 4 mm. This is nonspecific but could be due to a very early gestational sac. The endometrium is thickened at 15 mm. No pole is evident. The right ovary is 5 x 3 cm and contains a 3.3 cm cyst. Blood flow is present within the right ovary. The left ovary is 2.8 x 1.8 cm with blood flow noted. No cul-de-sac fluid. IMPRESSION: Possible very early gestational sac. Cannot confirm viability at this time. A pole is not identified. Recommend follow-up exam as well as correlation with beta HCG. 3 cm right ovarian cyst. Estimated due date by Ultrasound is Dictated by: Matthew Dent MD 03/28/2019 18:10 Electronically signed by Matthew Dent MD in [place] 03/28/2019 18:10
== END ==
PROVIDERS: PCP Family Medicine; Visit Provider Nurse Practitioner Obstetrics & Gynecology
DX: O26.841 Uterine size-date discrepancy, first trimester (principal); O26.859 Spotting complicating pregnancy, unspecified trimester
CPT/HCPCS: 76817

== ENCOUNTER → 2019-03-29 07:46 | Outpatient (CLI) | payer MEDICAID, SELFPAY ==
[2019-03-29 08:46] LABS: HCG,Quantitative 1665 mIU/mL
== END ==
PROVIDERS: Visit Provider Nurse Practitioner Obstetrics & Gynecology
DX: O20.9 Hemorrhage in early pregnancy, unspecified (principal); Z34.90 Encounter for supervision of normal pregnancy, unspecified, unspecified trimester
CPT/HCPCS: 36415; 84702

== ENCOUNTER → 2019-03-31 07:39 | Outpatient (CLI) | payer MEDICAID, SELFPAY ==
[2019-03-31 09:03] LABS: HCG,Quantitative 2153 mIU/mL
== END ==
PROVIDERS: PCP Family Medicine; Visit Provider Nurse Practitioner Obstetrics & Gynecology
DX: Z34.90 Encounter for supervision of normal pregnancy, unspecified, unspecified trimester (principal)
CPT/HCPCS: 84702

== ENCOUNTER → 2019-07-08 10:06 | Outpatient (CLI) | payer OTHER, SELFPAY ==
[2019-07-08 11:12] LABS: HCG Qualitative, Serum Positive (Negative)
[2019-07-08 12:54] LABS: HCG,Quantitative 30 mIU/mL
== END ==
PROVIDERS: Visit Provider Nurse Practitioner Obstetrics & Gynecology
DX: Z34.90 Encounter for supervision of normal pregnancy, unspecified, unspecified trimester (principal)
CPT/HCPCS: 36415; 84702; 84703

== ENCOUNTER → 2019-07-10 08:08 | Outpatient (CLI) | payer OTHER, SELFPAY ==
[2019-07-10 10:29] LABS: HCG,Quantitative 109 mIU/mL
[2019-07-12 19:03] LABS: Progesterone 9.4 ng/mL (.)
== END ==
PROVIDERS: Visit Provider Nurse Practitioner Obstetrics & Gynecology
DX: O20.9 Hemorrhage in early pregnancy, unspecified (principal)
CPT/HCPCS: 36415; 84144; 84702

== ENCOUNTER → 2019-07-16 15:31 | Outpatient (CLI) | payer OTHER, SELFPAY ==
[2019-07-16 17:00] LABS: HCG,Quantitative 1980 mIU/mL
== END ==
PROVIDERS: Visit Provider Nurse Practitioner Obstetrics & Gynecology
DX: Z34.90 Encounter for supervision of normal pregnancy, unspecified, unspecified trimester (principal)
CPT/HCPCS: 36415; 84702

== ENCOUNTER → 2019-07-22 13:06 | Outpatient (CLI) | payer OTHER, SELFPAY ==
--- NOTE | 2019-07-22 13:07 | US_ITS ---
PROCEDURE: US OB TRANSVAGINAL CLINICAL INDICATION: US OB T/V- Spotting during early COMPARISON: US OB TRANSVAGINAL from 03/28/2019 FINDINGS: An intrauterine gestational sac is present with a yolk sac 0.44 centimeters which would correlate with a 7 week 6 day gestation. No pole is identified. Follow-up will be necessary to assess viability. Right ovary measures 4.5 x 2.1 x 2.5 centimeters and left ovary 3.9 x 2.4 by 2.2 centimeters. Two separate cysts of the right ovary are noted 2.1 x 1.4 and 1.1 by 1.6 centimeters. Functional cysts are favored. There is no free fluid or abnormal adnexal mass. IMPRESSION: Intrauterine gestational sac with yolk sac but no pole to confirm viable living intrauterine gestation. Follow-up is recommended. Right ovarian cysts likely functional. Dictated by: Gio Byers 07/22/2019 17:20 Electronically signed by Gio Byers in [place] 07/22/2019 17:20
[2019-07-22 15:24] LABS: HCG,Quantitative 8952 mIU/mL
== END ==
PROVIDERS: PCP Family Medicine; Visit Provider Nurse Practitioner Obstetrics & Gynecology
DX: O26.859 Spotting complicating pregnancy, unspecified trimester (principal); O36.80X0 Pregnancy with inconclusive fetal viability, not applicable or unspecified
CPT/HCPCS: 36415; 76817; 84702

== ENCOUNTER → 2019-07-22 13:50 | Outpatient (CLI) | payer OTHER, SELFPAY | PROVIDERS: Visit Provider Nurse Practitioner Obstetrics & Gynecology | DX: Z32.00 Encounter for pregnancy test, result unknown (principal) | CPT/HCPCS: 36415; 84702 ==

== ENCOUNTER → 2019-12-09 15:01 | Outpatient (CLI) | payer OTHER, SELFPAY | PROVIDERS: PCP Physician Assistant; Visit Provider Physician Assistant | DX: G47.33 Obstructive sleep apnea (adult) (pediatric) (principal); E66.9 Obesity, unspecified | CPT/HCPCS: 95806 ==

== ENCOUNTER → 2020-02-01 09:48 | Outpatient (CLI) | payer OTHER, SELFPAY ==
[2020-02-01 11:36] LABS: Coronavirus 19 IgG Antibody Negative (Negative); Coronavirus 19 IgM Antibody Negative (Negative)
== END ==
PROVIDERS: Visit Provider Urology
DX: Z01.818 Encounter for other preprocedural examination (principal); N30.20 Other chronic cystitis without hematuria
CPT/HCPCS: 36415; 86328

== ENCOUNTER 2020-02-03 07:47 | Day surgery (SDC) | payer OTHER, SELFPAY ==
[2020-01-29 13:56] VITALS: BMI 41.0
[2020-02-03 08:07] VITALS: BP 134/74; PULSE 55; RESP 20; TEMP 36.8; O2SAT 100
[2020-02-03 08:19] LABS: Urine Pregnancy, HCG Qual. Negative (Negative)
[2020-02-03 11:22] VITALS: BP 105/42; PULSE 53; RESP 16; TEMP 36.2; O2SAT 96
[2020-02-03 11:32] VITALS: BP 105/48; PULSE 48; RESP 16; O2SAT 99
[2020-02-03 11:42] VITALS: BP 113/64; PULSE 54; RESP 16; O2SAT 100
[2020-02-03 11:52] VITALS: BP 122/68; PULSE 55; RESP 16; TEMP 36.4; O2SAT 100
--- NOTE | 2020-02-03 12:13 | P.PN_ITS ---
[facility] Anesthesia Checklist - Patient Identification Patient Identification: Arm Band - Structural Data Admitted From: Home Planned Operative Procedure/s: cystoscopy with urethral dilation Consent for Planned Operative Procedure(s) Verified: Yes Verified Documents: Surgical Consent, History and Physical - NPO Status Verified Time NPO: 00:00 - Additional verifications Anesthesia Reactions: Yes (ponv) Hx Blood Transfusions: No Blood Transfusion Reaction: No - Airway Assessment C-Spine Mobility Assessed: Yes (mp1) TMJ Mobility Assessed: Yes Dentition: Good Dentition - Neurological Assessment Level of Consciousness: Awake, Alert - Anesthesia Plan Anesthesia Risk discussed: Yes Anesthesia Plan: Verified ASA Class: III Anesthesia Type: MAC [facility] History 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: Reports:: Anxiety, Depression, Migraine, Ulcer, Urinary Tract Infection Denies:: Cancer, Diabetes Mellitus Type 1, Diabetes Mellitus Type 2, Internal Pacemaker, MRSA, Seizures *Have you ever received a pneumonia vaccine?: No *Have you received a flu vaccine this season?: No Other 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: Reports: Hypothyroidism, Thyroid Disease, Other. Denies: Blood Transfusion Reaction Anesthesia experience/problems:: nac Other Surgeries: Yes: Bariatric Surgery, , Dilation and Curettage, EGD, Other. No: Pacemaker Amputation: No Fractures: No - *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 Last grade of school completed: Some college Smoking Status: Former smoker Tobacco Type: cigarettes Smoking End Date: 07/03/2002 Alcohol Intake: never Alcohol Intake Frequency:: other Substance Use Type: denies use *Occupational Status:: unemployed Housing: house Household Members: spouse, family *Travel in the last 8 weeks: None - Psychiatric History Pschychiatric History:: Reports:: Anxiety, Depression Family Hx:: Coronary Artery Disease, Hyperlipidemia, Hypertension
[2020-02-03 13:42] VITALS: TEMP 43
--- NOTE | 2020-02-03 17:22 | HMH.OPNOTE ---
Date of procedure: 02/03/20 Pre-op Diagnosis:: Urethral stenosis Post-op Diagnosis:: Urethral stenosis Procedure performed:: Cystoscopy with urethral dilation Surgeon:: Davidson Ramos MD ORGAN INSTALLER:: Skyler Upton Anesthesia: GETKurt Estimated blood loss (mL): 0 Clinical Note:: 34-year-old white female with lower urinary tract symptoms and history of urethral stenosis. She has obtained improvement with urethral dilation in the past and presents for the procedure. Operative findings:: There was evidence of recurrent urethral stenosis proximally. The bladder was within normal limits. Operative note:: Patient taken to the operating room after informed consent was obtained. She was placed on the operating table in the supine position and general anesthesia administered. She was then placed into the dorsal lithotomy position prepped draped in the standard surgical fashion. Vaginal examination was within normal limits. Urethra is normal anatomic position. Urethra was dilated with a 22, 24 and 26 Italian female sounds. There was evidence of resistance at the proximal urethra with passage of each sound. After that the 22 Italian cystoscope passed into the urethra and the bladder examined in a systematic fashion. There is no evidence of mucosal normalities, stones, diverticula or trabeculation. Ureteral orifices in their normal anatomic position with clear reflux of urine. Bladder neck and urethra were normal as well. The bladder drained and the scope removed. Urojet placed into the urethra and she was discharged to recovery in stable condition. She was discharged home with Pyridium and a prescription for Macrobid. Condition: stable Disposition: same day Specimens:: None Complications:: None
== END 2020-02-03 12:17 | disposition home or self-care (01) ==
LOC: OR 07:49
PROVIDERS: PCP Physician Assistant; Visit Provider Urology
PROC: 0TJB8ZZ Inspection of Bladder, Via Natural or Artificial Opening Endoscopic (ICD-10-PCS; CPT 52000; principal; 2020-02-03 10:00)
DX: N35.92 Unspecified urethral stricture, female (principal); Z87.448 Personal history of other diseases of urinary system; Z87.440 Personal history of urinary (tract) infections; F41.9 Anxiety disorder, unspecified; F42.9 Obsessive-compulsive disorder, unspecified; K25.9 Gastric ulcer, unspecified as acute or chronic, without hemorrhage or perforation; E03.9 Hypothyroidism, unspecified; Z98.84 Bariatric surgery status; E66.9 Obesity, unspecified; Z68.41 Body mass index [BMI] 40.0-44.9, adult; Z87.891 Personal history of nicotine dependence; Z82.49 Family history of ischemic heart disease and other diseases of the circulatory system
CPT/HCPCS: 52281; 81025; 96374; J2405; J2704

== ENCOUNTER → 2020-03-06 13:30 | Outpatient (CLI) | payer OTHER, SELFPAY ==
[2020-03-06 15:42] LABS: 25-OH Vitamin D, Total 39.5 ng/mL (30-100); Free T4 (Free Thyroxine) 0.79 ng/dl (0.78-2.19)
[2020-03-06 15:56] LABS: Thyroid Stimulating Hormone 4.27 uIU/mL (0.465-4.68)
[2020-03-06 16:15] LABS: Vitamin B12 486 pg/mL (239-931)
== END ==
PROVIDERS: Visit Provider Physician Assistant
DX: E03.9 Hypothyroidism, unspecified (principal); E53.8 Deficiency of other specified B group vitamins; E55.9 Vitamin D deficiency, unspecified
CPT/HCPCS: 36415; 82306; 82607; 84439; 84443

== ENCOUNTER → 2020-04-07 09:02 | Outpatient (CLI) | payer OTHER, SELFPAY ==
[2020-04-07 10:53] LABS: HCG,Quantitative 174 mIU/ml (0-5.42)
== END ==
PROVIDERS: Visit Provider Nurse Practitioner Obstetrics & Gynecology
DX: Z34.90 Encounter for supervision of normal pregnancy, unspecified, unspecified trimester (principal)
CPT/HCPCS: 36415; 84702

== ENCOUNTER → 2020-04-09 08:41 | Outpatient (CLI) | payer OTHER, SELFPAY ==
[2020-04-09 10:35] LABS: HCG,Quantitative 511 mIU/ml (0-5.42)
== END ==
PROVIDERS: Visit Provider Nurse Practitioner Obstetrics & Gynecology
DX: Z34.90 Encounter for supervision of normal pregnancy, unspecified, unspecified trimester (principal)
CPT/HCPCS: 36415; 84702

== ENCOUNTER → 2020-04-16 12:35 | Outpatient (CLI) | payer OTHER, SELFPAY ==
--- NOTE | 2020-04-16 12:56 | US_ITS ---
PROCEDURE: US OB TRANSVAGINAL CLINICAL INDICATION: ab Early Ob ultrasound COMPARISON: US US OB TRANSVAGINAL from 07/22/2019 FINDINGS: There are 2 gestational sacs present. No pole is evident at this. The sac on the left does contain a yolk sac. No obvious yolk sac on the right. It may be too early to see these entities. Cannot confirm viability at this. Follow-up is suggested. There is an enlarged right ovary the at 6 x 4.3 cm with 4 cm cyst. There is fluid present in the cul-de-sac. IMPRESSION: There are 2 gestational sacs present with no pole evident in either sac. There does appear to be a yolk sac and at least 1 of the gestational sacs. Cannot confirm viability at this time therefore, follow-up is suggested. 4 cm right ovarian cyst with cul-de-sac fluid Dictated by: Matthew Dent MD 04/16/2020 15:46 Matthew Dent MD in [facility] 04/16/2020 15:46
== END ==
PROVIDERS: PCP Physician Assistant; Visit Provider Nurse Practitioner Obstetrics & Gynecology
DX: Z34.90 Encounter for supervision of normal pregnancy, unspecified, unspecified trimester (principal); O30.001 Twin pregnancy, unspecified number of placenta and unspecified number of amniotic sacs, first trimester
CPT/HCPCS: 76817

== ENCOUNTER → 2020-04-16 14:14 | Outpatient (CLI) | payer OTHER, SELFPAY ==
[2020-04-16 16:18] LABS: HCG,Quantitative 13824 mIU/ml (0-5.42)
== END ==
PROVIDERS: Visit Provider Nurse Practitioner Obstetrics & Gynecology
DX: Z34.90 Encounter for supervision of normal pregnancy, unspecified, unspecified trimester (principal)
CPT/HCPCS: 36415; 84702

== ENCOUNTER → 2020-04-23 12:36 | Outpatient (CLI) | payer OTHER, SELFPAY ==
--- NOTE | 2020-04-23 12:36 | US_ITS ---
PROCEDURE: US OB TRANSVAGINAL CLINICAL INDICATION: for dates and viability of twin COMPARISON: US US OB TRANSVAGINAL from 04/16/2020 FINDINGS: There is a twin gestation present with 2 separate gestational sacs. Embryo a on the right as a crown-rump length of 5 mm correlating to gestational age of 6 weeks 2 days. heart tones are present 122 beats per minute. Yolk sac noted Embryo B on the left has a crown-rump length of 4.2 mm with a gestational age of 6 weeks 1 day. heart tones are present 120 BPM. Yolk sac noted There is a 1.7 cm left ovarian cyst. There is a 3.9 cm right ovarian cyst with an additional 1.2 cm right ovarian cyst. There is a small amount of fluid in the pelvis. IMPRESSION: Twin gestation as described above with an average ultrasound age of 6 weeks 1 day and estimated due date of 12/15/2020 Dictated by: Matthew Dent MD 04/24/2020 07:30 Matthew Dent MD in [facility] 04/24/2020 07:30
== END ==
PROVIDERS: PCP Family Medicine; Visit Provider Nurse Practitioner Obstetrics & Gynecology
DX: O30.001 Twin pregnancy, unspecified number of placenta and unspecified number of amniotic sacs, first trimester (principal); Z34.90 Encounter for supervision of normal pregnancy, unspecified, unspecified trimester
CPT/HCPCS: 76817

== ENCOUNTER → 2020-09-08 07:03 | Outpatient (CLI) | payer OTHER, SELFPAY ==
[2020-09-08 07:40] LABS: Glucose,Fasting 89 mg/dl (74-100)
[2020-09-08 13:28] LABS: Glucose 1 Hour 111 mg/dL (74-100)
== END ==
PROVIDERS: Visit Provider Nurse Practitioner Obstetrics & Gynecology
DX: Z34.90 Encounter for supervision of normal pregnancy, unspecified, unspecified trimester (principal)
CPT/HCPCS: 36415; 82951

== ENCOUNTER 2020-09-16 13:50 | Outpatient (CLI) | payer OTHER, SELFPAY ==
[2020-09-16 14:30] VITALS: BP 127/68; PULSE 73; RESP 20; TEMP 36.7; O2SAT 100; BMI 42.3; BMI 43.5
[2020-09-16 14:37] LABS: Microscopic, Urine URINE MICROSCOPIC (MICROSCOPIC)
[2020-09-16 14:41] LABS: Appearance,Urine CLOUDY (Clear); Bilirubin,Urine Negative (Negative); Blood, Urine Negative (Negative); Color,Urine YELLOW (Yellow); Glucose,Urine (UA) Negative (Negative); Ketones,Urine Negative (Negative); Leukocyte Esterase,Urine Negative (Negative); Nitrate,Urine Negative (Negative); Protein,Urine Negative (Negative); Specific Gravity, Urine 1.025 (1.005-1.030); Urobilinogen,Urine 0.2 EU/dl (0.2)
[2020-09-16 14:51] LABS: Amphetamine/Metha Screen,Urine Negative ng/ml (<1000)
[2020-09-16 14:52] LABS: Bacteria,Urine 3+ /lpf; Barbiturates Screen,Urine Negative ng/ml (<200)
[2020-09-16 14:53] LABS: Benzodiazepines Screen,Urine Negative ng/ml (<200); Cannabinoid Screen,Urine Negative ng/ml (<50)
[2020-09-16 14:54] LABS: Cocaine Screen,Urine Negative ng/ml (<300); Methadone Screen,Urine Negative ng/ml (<300)
[2020-09-16 14:55] LABS: Opiate Screen,Urine Negative ng/ml (<300)
[2020-09-16 14:56] LABS: Phencyclidine Screen,Urine Negative ng/ml (<25)
[2020-09-16 17:05] LABS: Basophils % 0.1 % (0.1-2.0); Eosinophils # 0.1 K/mm3 (0.0-0.4); Eosinophils % 1.1 % (0.1-12.0); Lymphocytes # 1.2 K/mm3 (0.7-4.5); Lymphocytes % 16.6 % (10-50); Mean Corpuscular HGB Conc 30.2 g/dL (31.8-35.4); Mean Corpuscular Hemoglobin 20.2 pg (27.0-31.2); Mean Corpuscular Volume 66.8 fl (81-99); Mean Platelet Volume 8.6 fl (7.4-10.4); Monocytes # 0.4 K/mm3 (0.1-1.0); Monocytes % 4.8 % (1.7-9.3); Neutrophils # 5.6 K/mm3 (1.8-7.8); Neutrophils % 77.4 % (37.0-80.0); Platelet Count 208 K/mm3 (142-424); Red Blood Count 3.43 M/mm3 (4.20-5.40); Red Cell Distribution Width 16.3 % (11.5-17.5); White Blood Count 7.2 K/mm3 (4.8-10.8)
[2020-09-16 17:12] LABS: Hemoglobin 6.9 g/dL (12.2-16.2)
[2020-09-16 17:13] LABS: Hematocrit 22.9 % (37.0-47.0)
[2020-09-16 17:14] LABS: Chloride 111 mmol/L (98-107)
[2020-09-16 17:15] LABS: Potassium 3.5 mmoL/L (3.5-5.1); Sodium 137 mmol/L (136-145)
[2020-09-16 17:17] LABS: Blood Urea Nitrogen 3 mg/dl (7-17); Creatinine Clearance Estimated 208 mL/min (50-200); Estimated Glomerular Filt Rate 180 ml/min (>60); GFR (African American) 217 ML/MIN (>60)
[2020-09-16 17:18] LABS: Anion Gap 7.5 mEq/L (5-15); Calcium 8.4 mg/dl (8.4-10.2); Carbon Dioxide 22 mmol/L (22.0-30.0); Glucose 74 mg/dl (74-100)
--- NOTE | 2020-09-16 17:57 | PC.NURSE ---
AT [address] MACIEL AND REPORTED A CRITICAL H/H OF6.9/22.9- MD REPORTED TO HAVE PATIENT TAKE IRON TID AND EAT PROTEIN. MD REPORTED HE WILL BE SEEING PATIENT MONDAY AND HE WILL CLOSELY FOLLOW HER THE NEXT FEW WEEKS. PATIENT IS STILL IN LOBBY WILL GO DOWN TO EDUCATE HER. MD TO CALL IN PRESCRIPTION TO [facility] AT 1745 NURSE WENT TO PATIENT AND EDUCATED ON MEDICATION AND HOW OFTEN TO TAKE. EDUCATED PT. ON ANEMIA WELL. PATIENT V/U. TOLD PATIENT TO CALL OR COME BACK IN IF SYMPTOMS WORSEN. PT V/U
[2020-09-18 11:57] LABS: HIV Screen 4th Generation wRfx Non Reactive (Non Reactive)
[2020-09-18 13:00] LABS: Hepatitis B Surface Antigen Negative (Negative); Rapid Plasma Reagin Ab Titer Non Reactive (NonRea<1:1); Rubella Antibodies, IgG 5.66 index (Immune >0.99)
== END 2020-09-16 16:56 | disposition home or self-care (01) ==
LOC: OBOUT 13:54 → OB 13:55
PROVIDERS: PCP Physician Assistant; Visit Provider Nurse Practitioner Obstetrics & Gynecology
DX: O30.043 Twin pregnancy, dichorionic/diamniotic, third trimester (principal); Z3A.27 27 weeks gestation of pregnancy; R42 Dizziness and giddiness
CPT/HCPCS: 36415; 59025; 80048; 80305; 81001; 85025; 86592; 86762; 86850; 87086; 87340; 96365; G0463

== ENCOUNTER 2020-09-17 09:37 | Outpatient (CLI) | payer OTHER, SELFPAY ==
[2020-09-17] VITALS (19 sets, daily range): BP systolic 103–140; BP diastolic 48–79; PULSE 63–84; RESP 16–20; TEMP 36.2–36.6; O2SAT 98–100; BMI 41.5
[2020-09-17 11:09] LABS: Ferritin 3.89 ng/ml (6.24-137)
--- NOTE | 2020-09-17 14:40 | PC.NURSE ---
1155 Initiation of transfusion of 1st unit of PRBC at this time. Patient instructed on s/s transfusion reaction and verbalizes understanding of all instruction. IV patent. Resp easy/reg. Lungs CTA. Skin is pale, but warm/dry to touch. VSS. 1225 Patient tolerating blood well at this time with no s/s of transfusion reaction or problems noted. Resp easy/reg. Skin warm/dry. Denies c/o. IV patent. VSS. Patient laughing and talking with staff. 1255 Patient tolerating blood very well at this time. Denies any complaints. VSS. No problems seen. 1350 Transfusion of 1st unit PRBC complete at this time. Patient has tolerated well with no s/s transfusion reaction or problems noted. Patient continues to deny complaints. VSS. Skin warm/dry to touch. Resp easy/reg. IV patent. Patient eating lunch and tolerating well. Patient is pleasant and talkative/cooperative with care.
--- NOTE | 2020-09-17 14:44 | PC.NURSE ---
1405 Initiation of 2nd unit PRBC at this time. Reviewed s/s transfusion reaction with patient, who verbalizes understanding of all instruction. VSS. Skin warm/dry to touch. IV patent. Resp easy/reg/lungs consistent with baseline. 1435 Patient tolerating 2nd unit of blood well at this time. Resp easy/reg. Denies complaints. VSS. No s/s transfusion reaction noted.
--- NOTE | 2020-09-17 15:39 | PC.NURSE ---
1505 Patient tolerating blood well. No s/s transfusion reaction noted. IV patent. Up to bathroom to void at this time. No problems noted. VSS.
--- NOTE | 2020-09-17 16:12 | PC.NURSE ---
1605 Transfusion of 2nd unit of blood complete at this time. VSS. Patient denies complaints. Lungs unchanged from baseline. Skin warm/dry to touch. Patient has tolerated blood well with no s/s transfusion reaction or problems noted.
--- NOTE | 2020-09-17 16:36 | PC.NURSE ---
Report given to Joss Reyes RN at this time. Patient to have one hour post transfusion H&H and vital sign at 1705. Patient stable and denies complaints. No s/s transfusion reaction or problems noted.
[2020-09-17 17:25] LABS: Hematocrit 23.7 % (37.0-47.0); Hemoglobin 7.4 g/dL (12.2-16.2)
== END 2020-09-17 17:15 | disposition home or self-care (01) ==
LOC: INF 09:38
PROVIDERS: PCP Physician Assistant; Visit Provider Nurse Practitioner Obstetrics & Gynecology
DX: O99.019 Anemia complicating pregnancy, unspecified trimester (principal); O30.043 Twin pregnancy, dichorionic/diamniotic, third trimester; Z3A.27 27 weeks gestation of pregnancy; D50.9 Iron deficiency anemia, unspecified
CPT/HCPCS: 36430; 82728; 85014; 85018; 86850; P9016

== ENCOUNTER → 2020-09-18 08:58 | Outpatient (CLI) | payer OTHER, SELFPAY ==
[2020-09-18 09:16] LABS: Basophils % 0.2 % (0.1-2.0); Eosinophils # 0.1 K/mm3 (0.0-0.4); Eosinophils % 1.7 % (0.1-12.0); Hematocrit 27.2 % (37.0-47.0); Lymphocytes # 1.1 K/mm3 (0.7-4.5); Lymphocytes % 15.8 % (10-50); Mean Corpuscular HGB Conc 30.3 g/dL (31.8-35.4); Mean Corpuscular Hemoglobin 21.2 pg (27.0-31.2); Mean Corpuscular Volume 69.9 fl (81-99); Mean Platelet Volume 9.2 fl (7.4-10.4); Monocytes # 0.4 K/mm3 (0.1-1.0); Neutrophils # 5.5 K/mm3 (1.8-7.8); Neutrophils % 77.3 % (37.0-80.0); Platelet Count 204 K/mm3 (142-424); Red Blood Count 3.89 M/mm3 (4.20-5.40); Red Cell Distribution Width 19.1 % (11.5-17.5); White Blood Count 7.1 K/mm3 (4.8-10.8)
[2020-09-18 09:24] LABS: Hemoglobin 8.3 g/dL (12.2-16.2)
== END ==
PROVIDERS: Visit Provider Nurse Practitioner Obstetrics & Gynecology
DX: O99.019 Anemia complicating pregnancy, unspecified trimester (principal); Z34.90 Encounter for supervision of normal pregnancy, unspecified, unspecified trimester
CPT/HCPCS: 36415; 85025

== ENCOUNTER 2020-09-22 09:38 | Outpatient (CLI) | payer OTHER, SELFPAY ==
[2020-09-22 09:39] VITALS: BMI 43.1
[2020-09-22 10:02] VITALS: BP 124/64; PULSE 80; RESP 18; TEMP 36.6; O2SAT 99
[2020-09-22 10:34] LABS: Hematocrit 25.3 % (37.0-47.0)
[2020-09-22 10:35] LABS: Hemoglobin 7.7 g/dL (12.2-16.2)
[2020-09-22 10:55] VITALS: BP 130/80; PULSE 78; RESP 16; TEMP 36.6; O2SAT 99
[2020-09-22 11:00] LABS: 25-OH Vitamin D, Total 17.9 ng/mL (30-100)
[2020-09-22 11:33] LABS: Vitamin B12 242 pg/mL (239-931)
== END 2020-09-22 10:55 | disposition home or self-care (01) ==
LOC: INF 09:38
PROVIDERS: Visit Provider Nurse Practitioner Obstetrics & Gynecology
DX: O99.013 Anemia complicating pregnancy, third trimester (principal); D50.8 Other iron deficiency anemias; Z3A.28 28 weeks gestation of pregnancy; Z98.84 Bariatric surgery status; E55.9 Vitamin D deficiency, unspecified
CPT/HCPCS: 82306; 82607; 85014; 85018; 96365; Q0138

== ENCOUNTER 2020-09-26 19:45 | Outpatient (CLI) | payer OTHER, SELFPAY ==
[2020-09-26 20:00] VITALS: BP 133/79; PULSE 79; RESP 18; TEMP 36.9; O2SAT 98; BMI 41.8
[2020-09-26 20:51] LABS: Microscopic, Urine URINE MICROSCOPIC (MICROSCOPIC)
[2020-09-26 20:59] LABS: Appearance,Urine SL CLOUDY (Clear); Bilirubin,Urine Negative (Negative); Blood, Urine Negative (Negative); Color,Urine YELLOW (Yellow); Glucose,Urine (UA) Negative (Negative); Ketones,Urine 1+ (Negative); Leukocyte Esterase,Urine Negative (Negative); Nitrate,Urine Negative (Negative); Protein,Urine Negative (Negative); Specific Gravity, Urine >= 1.030 (1.005-1.030); Urobilinogen,Urine 0.2 EU/dl (0.2)
[2020-09-26 21:02] LABS: Calcium Oxalate Crystals,Urine 2+ /lpf; Mucus,Urine 1+ /lpf; Squamous Epithelial Cell,Urine 50-100 #/hpf (0-5)
[2020-09-26 21:13] LABS: Barbiturates Screen,Urine Negative ng/ml (<200)
[2020-09-26 21:14] LABS: Benzodiazepines Screen,Urine Negative ng/ml (<200)
[2020-09-26 21:15] LABS: Amphetamine/Metha Screen,Urine Negative ng/ml (<1000); Cannabinoid Screen,Urine Negative ng/ml (<50)
[2020-09-26 21:16] LABS: Cocaine Screen,Urine Negative ng/ml (<300)
[2020-09-26 21:17] LABS: Methadone Screen,Urine Negative ng/ml (<300); Opiate Screen,Urine Negative ng/ml (<300)
[2020-09-26 21:18] LABS: Phencyclidine Screen,Urine Negative ng/ml (<25)
== END 2020-09-26 21:45 | disposition home or self-care (01) ==
LOC: OBOUT 19:48 → OB 19:49
PROVIDERS: PCP Nurse Practitioner Obstetrics & Gynecology; Visit Provider Obstetrics & Gynecology
DX: O99.019 Anemia complicating pregnancy, unspecified trimester (principal); Z34.90 Encounter for supervision of normal pregnancy, unspecified, unspecified trimester
CPT/HCPCS: 59025; 80305; 81001; G0463

== ENCOUNTER → 2020-09-28 11:40 | Outpatient (CLI) | payer OTHER, SELFPAY ==
[2020-09-28 12:11] LABS: Basophils % 0.2 % (0.1-2.0); Eosinophils # 0.1 K/mm3 (0.0-0.4); Eosinophils % 1.5 % (0.1-12.0); Hematocrit 27.4 % (37.0-47.0); Hemoglobin 8.6 g/dL (12.2-16.2); Lymphocytes # 1.2 K/mm3 (0.7-4.5); Mean Corpuscular HGB Conc 31.5 g/dL (31.8-35.4); Mean Corpuscular Hemoglobin 22.6 pg (27.0-31.2); Mean Corpuscular Volume 71.7 fl (81-99); Mean Platelet Volume 7.8 fl (7.4-10.4); Monocytes # 0.3 K/mm3 (0.1-1.0); Monocytes % 3.9 % (1.7-9.3); Neutrophils # 6.5 K/mm3 (1.8-7.8); Neutrophils % 79.3 % (37.0-80.0); Platelet Count 205 K/mm3 (142-424); Red Blood Count 3.83 M/mm3 (4.20-5.40); Red Cell Distribution Width 24.2 % (11.5-17.5); White Blood Count 8.2 K/mm3 (4.8-10.8)
== END ==
PROVIDERS: Visit Provider Nurse Practitioner Obstetrics & Gynecology
DX: O99.019 Anemia complicating pregnancy, unspecified trimester (principal)
CPT/HCPCS: 36415; 85025

== ENCOUNTER 2020-09-30 09:00 | Outpatient (CLI) | payer OTHER, SELFPAY ==
[2020-09-30 09:06] VITALS: BMI 43.8
[2020-09-30 09:35] VITALS: BP 118/65; PULSE 67; RESP 18; TEMP 36; O2SAT 100
[2020-09-30 09:39] LABS: Hematocrit 27.2 % (37.0-47.0); Hemoglobin 8.3 g/dL (12.2-16.2)
[2020-09-30 09:55] VITALS: BP 129/67; PULSE 79; RESP 18
[2020-09-30 10:05] LABS: 25-OH Vitamin D, Total 21.8 ng/mL (30-100)
[2020-09-30 10:39] LABS: Vitamin B12 209 pg/mL (239-931)
== END 2020-09-30 10:15 | disposition home or self-care (01) ==
LOC: INF 09:04
PROVIDERS: Visit Provider Nurse Practitioner Obstetrics & Gynecology
DX: O99.013 Anemia complicating pregnancy, third trimester (principal); D50.8 Other iron deficiency anemias; Z3A.28 28 weeks gestation of pregnancy; E55.9 Vitamin D deficiency, unspecified; Z98.84 Bariatric surgery status
CPT/HCPCS: 82306; 82607; 85014; 85018; 96372; 96374; Q0138

== ENCOUNTER 2020-10-07 08:38 | Outpatient (CLI) | payer OTHER, SELFPAY ==
[2020-10-07 08:40] VITALS: BP 120/66; PULSE 69; RESP 18; TEMP 36.7; O2SAT 98
== END 2020-10-07 09:01 | disposition home or self-care (01) ==
LOC: INF 08:38
PROVIDERS: Visit Provider Nurse Practitioner Obstetrics & Gynecology
DX: E53.8 Deficiency of other specified B group vitamins (principal); O99.013 Anemia complicating pregnancy, third trimester; D50.8 Other iron deficiency anemias
CPT/HCPCS: 96372

== ENCOUNTER 2020-10-14 08:47 | Outpatient (CLI) | payer OTHER, SELFPAY ==
[2020-10-14 08:47] VITALS: BMI 45.8
[2020-10-14 09:09] LABS: Basophils % 0.1 % (0.1-2.0); Eosinophils # 0.1 K/mm3 (0.0-0.4); Eosinophils % 1.6 % (0.1-12.0); Hematocrit 28.5 % (37.0-47.0); Hemoglobin 8.8 g/dL (12.2-16.2); Lymphocytes # 0.8 K/mm3 (0.7-4.5); Lymphocytes % 15.8 % (10-50); Mean Corpuscular HGB Conc 30.9 g/dL (31.8-35.4); Mean Corpuscular Hemoglobin 24.1 pg (27.0-31.2); Mean Corpuscular Volume 77.9 fl (81-99); Mean Platelet Volume 9.4 fl (7.4-10.4); Monocytes # 0.3 K/mm3 (0.1-1.0); Neutrophils % 77.5 % (37.0-80.0); Platelet Count 166 K/mm3 (142-424); Red Blood Count 3.66 M/mm3 (4.20-5.40); White Blood Count 5.2 K/mm3 (4.8-10.8)
[2020-10-14 09:10] VITALS: BP 129/61; PULSE 76; RESP 18; TEMP 36.6; O2SAT 97
[2020-10-14 09:11] LABS: Red Cell Distribution Width 27.8 % (11.5-17.5)
== END 2020-10-14 09:10 | disposition home or self-care (01) ==
LOC: INF 08:47
PROVIDERS: Visit Provider Nurse Practitioner Obstetrics & Gynecology
DX: O30.043 Twin pregnancy, dichorionic/diamniotic, third trimester (principal); Z3A.30 30 weeks gestation of pregnancy; D50.9 Iron deficiency anemia, unspecified
CPT/HCPCS: 36415; 85025; 96372

== ENCOUNTER 2020-10-21 08:15 | Outpatient (CLI) | payer OTHER, SELFPAY ==
[2020-10-21 09:59] VITALS: BP 130/73; PULSE 72; RESP 18; O2SAT 99
== END 2020-10-21 08:40 | disposition home or self-care (01) ==
LOC: INF 08:18
PROVIDERS: Visit Provider Nurse Practitioner Obstetrics & Gynecology
DX: O99.013 Anemia complicating pregnancy, third trimester (principal); D50.8 Other iron deficiency anemias
CPT/HCPCS: 96372

== ENCOUNTER 2020-10-28 08:26 | Outpatient (CLI) | payer OTHER, SELFPAY ==
[2020-10-28 08:28] VITALS: BP 125/65; PULSE 65; RESP 17; TEMP 36.7; O2SAT 99
[2020-10-28 10:10] VITALS: BP 102/67; PULSE 75; RESP 18; TEMP 36.8; O2SAT 99
== END 2020-10-28 10:13 | disposition home or self-care (01) ==
LOC: INF 08:26
PROVIDERS: Visit Provider Nurse Practitioner Obstetrics & Gynecology
DX: O30.043 Twin pregnancy, dichorionic/diamniotic, third trimester (principal); Z3A.33 33 weeks gestation of pregnancy; O99.013 Anemia complicating pregnancy, third trimester
CPT/HCPCS: 96365; 96372; Q0138

== ENCOUNTER 2020-11-04 08:40 | Outpatient (CLI) | payer OTHER, SELFPAY ==
[2020-11-04 09:00] VITALS: BP 116/68; PULSE 78; RESP 18; TEMP 36.4; O2SAT 100
[2020-11-04 09:33] VITALS: BP 120/65; PULSE 75; RESP 18
== END 2020-11-04 10:33 | disposition home or self-care (01) ==
LOC: INF 08:42
PROVIDERS: Visit Provider Nurse Practitioner Obstetrics & Gynecology
DX: O30.043 Twin pregnancy, dichorionic/diamniotic, third trimester (principal); Z3A.34 34 weeks gestation of pregnancy; O99.013 Anemia complicating pregnancy, third trimester
CPT/HCPCS: 96372; 96374; Q0138

== ENCOUNTER → 2020-11-19 15:39 | Outpatient (CLI) | payer OTHER, SELFPAY | PROVIDERS: Visit Provider Nurse Practitioner Obstetrics & Gynecology | DX: Z34.90 Encounter for supervision of normal pregnancy, unspecified, unspecified trimester (principal) | CPT/HCPCS: 86403 ==

== ENCOUNTER → 2020-11-27 11:48 | Outpatient (CLI) | payer OTHER, SELFPAY ==
--- NOTE | 2020-11-27 11:49 | US_ITS ---
PROCEDURE: US OB BIOPHYSICAL PROFILE CLINICAL INDICATION: twin / decreased movement TECHNIQUE: FINDINGS: There is a twin gestation present. No previous studies available except for the initial exam of 04/23/2020. Fetus A: Breech presentation. Average ultrasound age 38 weeks 0 days. BPD 37 weeks 1 day, HC 37 weeks 4 day, AC 39 weeks 5 day, FL 37 weeks 2 day. Heart rate is 140 BPM. Placenta is anterior and 1-2. Biophysical profile is 8 of 8. Fetus B: Breech presentation. Average ultrasound age 38 weeks 5 days. BPD 39 weeks 4 days, HC 40 weeks 2 days, AC 38 weeks 4 days, FL 36 weeks 1 day. Heart rate 143 BPM. Biophysical profile 8 of 8. Anterior placenta grade 1-2. This appears to be a dichorionic diamniotic gestation. PEDRO 19 cm. IMPRESSION: Live twin gestation as detailed above. Both twins are in breech presentation and both have a BPP of 8/8. PEDRO is normal at 19 cm. Average ultrasound age is 38 weeks 0 days to 38 weeks 5 days Dictated by: Matthew Dent MD 12/02/2020 09:01 Matthew Dent MD in [place] 12/02/2020 09:01
== END ==
PROVIDERS: PCP Internal Medicine Adolescent Medicine; Visit Provider Nurse Practitioner Obstetrics & Gynecology
DX: O09.523 Supervision of elderly multigravida, third trimester (principal); O30.043 Twin pregnancy, dichorionic/diamniotic, third trimester; O34.219 Maternal care for unspecified type scar from previous cesarean delivery; O36.8132 Decreased fetal movements, third trimester, fetus 2
CPT/HCPCS: 76816; 76819

== ENCOUNTER → 2020-11-28 10:55 | Outpatient (CLI) | payer OTHER, SELFPAY ==
[2020-11-28 11:42] LABS: Basophils % 0.2 % (0.1-2.0); Eosinophils # 0.1 K/mm3 (0.0-0.4); Eosinophils % 1.5 % (0.1-12.0); Hematocrit 33.7 % (37.0-47.0); Hemoglobin 11.4 g/dL (12.2-16.2); Lymphocytes # 1.2 K/mm3 (0.7-4.5); Lymphocytes % 16.6 % (10-50); Mean Corpuscular HGB Conc 33.9 g/dL (31.8-35.4); Mean Corpuscular Hemoglobin 28.5 pg (27.0-31.2); Mean Corpuscular Volume 84.1 fl (81-99); Mean Platelet Volume 9.1 fl (7.4-10.4); Monocytes # 0.4 K/mm3 (0.1-1.0); Monocytes % 4.9 % (1.7-9.3); Neutrophils # 5.4 K/mm3 (1.8-7.8); Neutrophils % 76.8 % (37.0-80.0); Platelet Count 135 K/mm3 (142-424); Red Cell Distribution Width 24.1 % (11.5-17.5); White Blood Count 7.1 K/mm3 (4.8-10.8)
[2020-11-28 12:30] LABS: Anion Gap 8.2 mEq/L (5-15); Blood Urea Nitrogen 6 mg/dl (7-17); Carbon Dioxide 23 mmol/L (22.0-30.0); Chloride 108 mmol/L (98-107); Estimated Glomerular Filt Rate 112 ml/min (>60); GFR (African American) 136 ML/MIN (>60); Glucose 67 mg/dl (74-100); Potassium 4.2 mmoL/L (3.5-5.1); Sodium 135 mmol/L (136-145)
== END ==
PROVIDERS: Visit Provider Nurse Practitioner Obstetrics & Gynecology
DX: Z01.818 Encounter for other preprocedural examination (principal); O30.009 Twin pregnancy, unspecified number of placenta and unspecified number of amniotic sacs, unspecified trimester; Z34.90 Encounter for supervision of normal pregnancy, unspecified, unspecified trimester
CPT/HCPCS: 80048; 85025; U0003

== ENCOUNTER 2020-12-01 04:51 | Inpatient (IN) | payer OTHER, SELFPAY ==
--- NOTE | 2020-11-24 11:56 | SUR.PREOP ---
instructed patient to come in for COVID swab on Monday and will be re-swabbed on day of surgery
[2020-12-01] VITALS (8 sets, daily range): BP systolic 113–152; BP diastolic 57–85; PULSE 59–88; RESP 16–19; TEMP 36.1–37.2; O2SAT 98–100; BMI 46.7
--- NOTE | 2020-12-01 06:37 | PC.NURSE ---
2 nst for twins
--- NOTE | 2020-12-01 07:01 | HMH.ANESCL ---
[facility] Anesthesia Checklist - Patient Identification Patient Identification: Arm Band - Structural Data Admitted From: Home Planned Operative Procedure/s: C/S Consent for Planned Operative Procedure(s) Verified: Yes - NPO Status Verified Time NPO: 00:00 - Additional verifications Anesthesia Reactions: Yes (ponv) Hx Blood Transfusions: No Blood Transfusion Reaction: Yes - Airway Assessment C-Spine Mobility Assessed: Yes TMJ Mobility Assessed: Yes Dentition: Edentulous - Neurological Assessment Level of Consciousness: Awake Hx Seizures: No Numbness or tingling in extremities: No - Anesthesia Plan Anesthesia Risk discussed: Yes Anesthesia Plan: Verified ASA Class: III Anesthesia Type: MAC w/Spinal [facility] History I have reviewed the patient's past medical history: Yes 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: Reports:: Anxiety, Depression, Migraine, MRSA, Ulcer, Urinary Tract Infection Denies:: Diabetes Mellitus Type 1, Diabetes Mellitus Type 2, Internal Pacemaker, Seizures *Have you ever received a pneumonia vaccine?: No *Have you received a flu vaccine this season?: No Other 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: Reports: Anemia, Blood Transfusion Reaction, Hypothyroidism, Sinus Problems, Thyroid Disease, Other Anesthesia experience/problems:: Difficult spinal Other Surgeries: Yes: No Previous Surgery, Bariatric Surgery, , Dilation and Curettage, EGD, Other (leep/rectal tear repair). No: Pacemaker Amputation: No Fractures: No - *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 Smoking Status: Former smoker Tobacco Type: cigarettes Alcohol Intake: never Alcohol Intake Frequency:: other Substance Use Type: denies use *Occupational Status:: unemployed Housing: house Household Members: spouse, children *Travel in the last 8 weeks: None - Psychiatric History Pschychiatric History:: Reports:: Anxiety, Depression Family Hx:: Coronary Artery Disease, Hyperlipidemia, Hypertension Para: 7
[2020-12-01 07:55] LABS: Microscopic, Urine URINE MICROSCOPIC (MICROSCOPIC)
[2020-12-01 07:59] LABS: Appearance,Urine CLEAR (Clear); Blood, Urine Negative (Negative); Color,Urine YELLOW (Yellow); Glucose,Urine (UA) Negative (Negative); Ketones,Urine TRACE (Negative); Leukocyte Esterase,Urine 1+ (Negative); Nitrate,Urine Negative (Negative); Protein,Urine Negative (Negative); Specific Gravity, Urine >= 1.030 (1.005-1.030)
[2020-12-01 08:03] LABS: Bilirubin,Urine 1+ (Negative)
[2020-12-01 08:05] LABS: Calcium Oxalate Crystals,Urine 1+ /lpf
[2020-12-01 08:06] LABS: Bacteria,Urine 1+ /lpf; RBC,Urine Occasional #/hpf (0-3)
[2020-12-01 08:12] LABS: Cord Blood PH 7.35 (7.35-7.45)
[2020-12-01 08:16] LABS: Cord Blood PH 7.42 (7.35-7.45)
--- NOTE | 2020-12-01 09:04 | HMH.OPNOTE ---
Date of procedure: 12/01/20 Pre-op Diagnosis:: Term , twin , previous section, desire for sterilization Post-op Diagnosis:: Term , twin , previous section, desire for sterilization Procedure performed:: Repeat lower segment transverse section and bilateral salpingectomy. Surgeon:: Cody Rausch MD MANAGER REGIONAL:: Other ([facility]) Anesthesia: spinal Estimated blood loss (mL): 800 Clinical Note:: She is a 35-year-old 9 para 7 aborta 1 who was 38 weeks gestational age with twins. She is had a previous section and as result of that was offered repeat lower segment transverse section. Twins were known to be in the transverse position. She also expressed desire for sterilization. The risk and benefits as well as irreversibility of bilateral salpingectomy were discussed with the patient prior to surgery. Operative findings:: She delivered baby A at 8 AM she was a liveborn female child with Apgars of 9 at 1 minute and 9 at 5 minutes. pH was 7.35. She was in the transverse position with the head on the left side. She was delivered headfirst. Baby B was born at 8:02 AM she was a liveborn female child with Apgars of 8 at 1 minute and 9 at 5 minutes. pH was 7.42. She had a nuchal cord that was loose. She was in the transverse position and was delivered feet first. Ovaries and tubes appeared normal. Operative note:: She was taken to the operating room where spinal anesthesia was found be adequate. She was prepped and draped in normal sterile fashion in the supine position with a leftward tilt. A Shay catheter was in the bladder. A Pfannenstiel skin incision was made with knife then carried through to the underlying layer of fascia with cautery. The fascia was opened in the midline with cautery and extended laterally using Red scissors. Marcela clamps were applied to the superior aspect of the fascial incision which was tented up and the underlying rectus muscles dissected off using cautery. The Keystone clamps were then applied to the inferior aspect of the fascial incision which in a similar fashion was tented up and the underlying rectus muscles dissected off using cautery. The rectus muscles were then in the midline, the peritoneum identified, and entered sharply with Metzenbaum scissors. This incision was then extended superiorly and inferiorly with cautery. We had good visualization of the bladder inferiorly. The Boaz retractor was then placed within the abdominal cavity. The bladder peritoneum was then opened in the midline and extended laterally using Metzenbaum scissors. A bladder flap was created digitally. Transverse incision was made through the uterine muscle to the amnion. This incision was then extended laterally using fingers traction. The amnion was entered sharply with knife. There was clear amniotic fluid. The first 's head was then delivered atraumatically. This was followed by the anterior shoulder and the rest of the 's body atraumatically. The oropharynx and nasopharynx were bulb suctioned. The was then handed off to Dr. Mandujano who assigned Apgars of 9 at 1 minute and 9 at 5 minutes. The membranes were then ruptured around the infant be and there was clear fluid. The 's feet were grasped and I delivered the feet followed by the after coming shoulders and head. There was a loose nuchal cord. This was reduced. The cord was clamped and cut and the was handed off to Dr. Diego who assigned Apgars of 8 at 1 minute and 9 at 5 minutes. pH was 7.42. We then obtained cord blood as well as cord pH. Using gentle traction on the cord and countertraction on the fundus I was able to easily deliver the placentas intact. They each had a normal three-vessel cord. The uterus was then cleared of clots and debris . The uterine incision was then closed using running 0 Vicryl suture in a locked fashion. A second layer o
--- NOTE | 2020-12-01 09:19 | P.PN_ITS ---
[facility] Anesthesia Record Part I Intake, IV Amount: 1,000 Estimated blood loss (mL): 800 Urine output (mL): 50 Blood Pressure: 125/76 SaO2: 99 Pulse Rate: 79 Respiratory Rate: 19 Temperature: 97 F Patient is:: Awake Stable to PACU at:: 09:10
--- NOTE | 2020-12-01 09:52 | HMH.PHAVTE ---
[facility] Pharmacy VTE Monitoring - Patient Demographics Admission date: 12/01/20 Report Date: 12/01/20 Time: 09:52 Allergies/Adverse Reactions: Patient Allergies ethinyl estradiol [From NUVARING] Allergy (Unknown, Verified 11/25/20 14:24) etonogestrel [From NUVARING] Allergy (Unknown, Verified 11/25/20 14:24) fluconazole [FLUCONAZOLE] Allergy (Unknown, Verified 11/25/20 14:24) guaifenesin [From MUCINEX] Allergy (Unknown, Verified 11/25/20 14:24) Penicillins [PENICILLINS] Allergy (Unknown, Verified 11/25/20 14:24) Sulfa (Sulfonamide Antibiotics) [SULFA (SULFONAMIDE ANTIBIOTICS)] Allergy (Unknown, Verified 11/25/20 14:24) sulfamethoxazole [From Bactrim] Allergy (Verified 11/25/20 14:24) trimethoprim [From Bactrim] Allergy (Verified 11/25/20 14:24) Height: 1.75 m Weight: 143.789 kg - Prophylaxis VTE Prophylaxis Ordered?: Yes Types of VTE Prophylaxis: IPCS Thigh High Location of Applied Device: Bilateral Lower Extremeties
[2020-12-01 10:33] LABS: Basophils % 0.1 % (0.1-2.0); Eosinophils # 0.1 K/mm3 (0.0-0.4); Eosinophils % 0.5 % (0.1-12.0); Hematocrit 35.2 % (37.0-47.0); Hemoglobin 11.7 g/dL (12.2-16.2); Lymphocytes # 0.8 K/mm3 (0.7-4.5); Lymphocytes % 7.5 % (10-50); Mean Corpuscular HGB Conc 33.1 g/dL (31.8-35.4); Mean Corpuscular Hemoglobin 28.5 pg (27.0-31.2); Mean Corpuscular Volume 86.2 fl (81-99); Monocytes # 0.2 K/mm3 (0.1-1.0); Monocytes % 1.5 % (1.7-9.3); Neutrophils # 9.3 K/mm3 (1.8-7.8); Neutrophils % 90.3 % (37.0-80.0); Platelet Count 145 K/mm3 (142-424); Red Blood Count 4.09 M/mm3 (4.20-5.40); Red Cell Distribution Width 23.7 % (11.5-17.5); White Blood Count 10.3 K/mm3 (4.8-10.8)
[2020-12-01 10:35] LABS: MANUAL DIFFERENTIAL MANUAL DIFFERENTIAL (MANUAL DIFF)
--- NOTE | 2020-12-01 10:56 | HMH.ANESII ---
[facility] Anesthesia Record Part II Discharge Time: 09:50 Destination: Obstetric PACU nurse assessment reviewed?: Yes Patient Condition:: Good Anesthesia Complications:: None Swallowing reflex intact?: Yes Cyanosis?: No Blood Pressure: 152/85 Pulse Rate: 63 Temperature: 97.3 F Mental Status: Alert & Oriented Pain level:: 8 Nausea and/or vomitting:: None Intake, IV Amount: 0
[2020-12-01 11:29] LABS: Anisocytosis 2+; Lymphocytes % 10 % (10-50); Microcytosis 2+; Monocytes % 4 % (2-9); Neutrophils % 86 % (42-76); Platelet Estimate Normal; Total Cells Counted 100
[2020-12-01 11:30] LABS: Hypochromasia 1+
[2020-12-01 13:15] LABS: Microscopic,Cath URINE MICROSCOPIC (MICROSCOPIC)
[2020-12-01 13:17] LABS: Appearance,Urine/Cath CLEAR (Clear); Bilirubin,Cath Negative (Negative); Blood, Urine/Cath Negative (Negative); Color,Urine/Cath YELLOW (Yellow); Glucose,Urine/Cath (UA) Negative (Negative); Ketones,Urine/Cath Negative (Negative); Leukocyte Esterase,Cath Negative (Negative); Nitrate,Cath Negative (Negative); PH,Urine/Cath 6.5 (5.0-8.5); Protein,Urine/Cath Negative (Negative); Specific Gravity, Urine/Cath 1.025 (1.005-1.030)
[2020-12-01 13:50] LABS: RBC,Urine/Cath Occasional # /hpf (0-3)
[2020-12-01 16:40] LABS: Hematocrit 31.8 % (37.0-47.0); Hemoglobin 10.7 g/dL (12.2-16.2)
[2020-12-02 00:07] VITALS: BP 117/65; PULSE 65; RESP 18; TEMP 36.9
[2020-12-02 04:06] VITALS: BP 108/57; PULSE 60; RESP 18; TEMP 36.7; O2SAT 99
[2020-12-02 08:00] VITALS: BP 115/56; PULSE 73; RESP 18; TEMP 36.7; O2SAT 100
--- NOTE | 2020-12-02 08:27 | HMH.OBAPHP ---
OB - H&P: HPI Antepartum - History of Present Illness Chief complaint: Term , twin gestation History of present illness: She is a 35-year-old 9 para 7 aborta 1 with twins. She is 38 weeks gestational age. She has dichorionic diamniotic twins. She is had a previous section. The twins were in the transverse presentation. As result of this she is admitted for repeat lower segment transverse section. - History of Present Criteria for establishing EDC:: LMP confirmed by 1st trimester US care: good care Ultrasounds: normal 1st trimester US, normal mid trimester US Obstetrical complications: other Medical complications: none - Labs GBS status: negative [facility] History I have reviewed the patient's past medical history: Yes 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: Reports:: Anxiety, Cancer, Depression, Migraine, MRSA, Ulcer, Urinary Tract Infection Denies:: Diabetes Mellitus Type 1, Diabetes Mellitus Type 2, Internal Pacemaker, Seizures *Have you ever received a pneumonia vaccine?: No *Have you received a flu vaccine this season?: No Other 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: Reports: Anemia, Blood Transfusion Reaction, Hypothyroidism, Sinus Problems, Thyroid Disease, Other Anesthesia experience/problems:: Difficult spinal Other Surgeries: Yes: No Previous Surgery, Bariatric Surgery, , Dilation and Curettage, EGD, Other (leep/rectal tear repair). No: Pacemaker Amputation: No Fractures: No - *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 Smoking Status: Former smoker Tobacco Type: cigarettes Alcohol Intake: never Alcohol Intake Frequency:: other Substance Use Type: denies use *Occupational Status:: unemployed Housing: house Household Members: spouse, children *Travel in the last 8 weeks: None - Psychiatric History Pschychiatric History:: Reports:: Anxiety, Depression Family Hx:: Coronary Artery Disease, Hyperlipidemia, Hypertension Para: 7 Review of Systems - Review of Systems Review of systems:: pertinent systems reviewed and negative unless documented below Meds Home Medications Medication Instructions Recorded Confirmed Type Cyanocobalamin (Vitamin B-12) 1,000 mcg IJ MONTHLY 10/01/18 12/01/20 History [B-12 Compliance] levothyroxine 25 mcg tablet 25 mcg PO DAILY tab 01/15/20 12/01/20 History sertraline 100 mg tablet 100 mg PO DAILY tab 05/15/20 12/01/20 History Allergies Allergy/AdvReac Type Severity Reaction Status Date / Time ethinyl estradiol Allergy Unknown Verified 11/25/20 14:24 [From NUVARING] etonogestrel [From NUVARING] Allergy Unknown Verified 11/25/20 14:24 fluconazole [FLUCONAZOLE] Allergy Unknown Verified 11/25/20 14:24 guaifenesin [From MUCINEX] Allergy Unknown Verified 11/25/20 14:24 Penicillins [PENICILLINS] Allergy Unknown Verified 11/25/20 14:24 Sulfa (Sulfonamide Allergy Unknown Verified 11/25/20 14:24 Antibiotics) [SULFA (SULFONAMIDE ANTIBIOTICS)] sulfamethoxazole Allergy Verified 11/25/20 14:24 [From Bactrim] trimethoprim [From Bactrim] Allergy Verified 11/25/20 14:24 OB - H&P: Exam - Physical Exam Vital signs: Temp Pulse Resp BP Pulse Ox 98.1 F 60 18 108/57 L 99 12/02/20 04:06 12/02/20 04:06 12/02/20 04:06 12/02/20 04:06 12/02/20 04:06 - Constitutional no acute distress - Routine HEENT Exam Head: Present: normocephalic Eye: Present: EOMI, PERRL ENT: Present: mucous membranes moist - Routine Neck Exam Present: supple, full ROM - Routine Respiratory Exam Absent: accessory muscle use (good air entry bilaterally), respiratory distress, wheezes, crackles - Routine Cardiovascular Exam Present: RRR. Absent: murmur - Routine Abdominal Exam Present: soft, normoactive bowel sounds. Absent: tenderness, distended, guarding - Routine Rectal Exam Patient deferred: visual exam, digital exam - Routine Exam Patient deferred: external exam, groin exam, perineal exam - Routine Extremities Exam Present: full ROM
[2020-12-02 08:59] LABS: Hematocrit 30.2 % (37.0-47.0); Hemoglobin 10.2 g/dL (12.2-16.2)
--- NOTE | 2020-12-02 10:09 | P.PN_ITS ---
Internal Medicine - PN: Subj *Date: 12/02/20 *Time: 10:09 Interval history: She continues to do well. She is eating and drinking and ambulating. She is breast-feeding. Her lochia is normal. Her hemoglobin is 10.2 this morning. Exam Vital signs and Labs for Last 24 Hours: Temp Pulse Resp BP Pulse Ox 98.0 F 73 18 115/56 L 100 12/02/20 08:00 12/02/20 08:00 12/02/20 08:00 12/02/20 08:00 12/02/20 08:00 Laboratory Results - last 24 hr 12/01/20 05:25: Blood Type A Positive, Antibody Screen Negative, Crossmatch (AHG) See Detail 12/01/20 07:45: Urine Color Yellow, Urine Appearance Clear, Urine pH 6.5, Ur Specific [place] 1.025, Urine Protein Negative, Urine Glucose (UA) Negative, Urine Ketones Negative, Urine Blood Negative, Urine Nitrate Negative, Urine Bilirubin Negative, Urine Urobilinogen 1.0, Ur Leukocyte Esterase Negative, Urine RBC Occasional, Urine WBC 3-5, Ur Squamous Epith Cells 3-5, Urine Bacteria None 12/01/20 10:29: WBC 10.3 D, RBC 4.09 L, Hgb 11.7 L, Hct 35.2 L, MCV 86.2, MCH 28.5, MCHC 33.1, RDW 23.7 H, Plt Count 145, MPV 9.0, Neut % (Auto) 90.3 H, Lymph % (Auto) 7.5 L, [place] % (Auto) 1.5 L, Eos % (Auto) 0.5, Baso % (Auto) 0.1, Neut # (Auto) 9.3 H, Lymph # (Auto) 0.8, [place] # (Auto) 0.2, Eos # (Auto) 0.1, Baso # (Auto) 0.0, Total Counted 100, Neutrophils % (Manual) 86 H, Lymphocytes % (Manual) 10, Monocytes % (Manual) 4, Platelet Estimate Normal, Hypochromasia 1+, Anisocytosis 2+, Microcytosis 2+ 12/01/20 16:14: Hgb 10.7 L, Hct 31.8 L 12/02/20 08:20: Hgb 10.2 L, Hct 30.2 L I & O for Last 24 hours: Intake & Output 11/29/20 11/30/20 12/01/20 12/02/20 11:59 11:59 11:59 11:59 Intake Total 1000 / 1000 Output Total 80 / 80 Balance 920 / 920 Weight 317 lb Microbiology Reports for the Last 24 Hours: Microbiology 12/01/20 05:00 Urine,Clean Catch Urine Culture - Preliminary NO GROWTH AFTER 24 HOURS - Constitutional no acute distress - *Routine HEENT Exam Head: Present: normocephalic Eye: Present: EOMI, PERRL ENT: Present: mucous membranes moist Assessment and Plan (1) Previous section Status: Acute Category: Surgical Code(s): Z98.891 - History of uterine scar from previous surgery (2) Twin gestation in third trimester Status: Acute Qualifiers: Multiple gestation type: dichorionic and diamniotic Qualified Code(s): O30.043 - Twin , dichorionic/diamniotic, third trimester Category: Medical Code(s): O30.003 - Twin , unspecified number of placenta and unspecified number of amniotic sacs, third trimester - Assessment and plan all Dx Assessment and Plan for all problems:: She continues to do well. We will plan to send her home in 48 hours
--- NOTE | 2020-12-02 13:06 | HMH.PHAINT ---
MEDICATION RECONCILIATION COMPLETED ON PATIENT USING LIST FROM [facility] OFFICE. -ОЛЬГА MELCHOR, BRISSAD
[2020-12-02 16:30] VITALS: BP 113/53; PULSE 58; RESP 20; TEMP 36.5; O2SAT 100
[2020-12-02 20:39] VITALS: BP 117/58; PULSE 63; RESP 18; TEMP 36.7; O2SAT 98
[2020-12-03 00:29] VITALS: BP 109/55; PULSE 59; RESP 18; TEMP 36.7
[2020-12-03 08:00] VITALS: BP 100/58; PULSE 69; RESP 20; TEMP 36.9; O2SAT 100
--- NOTE | 2020-12-03 10:30 | HMH.ACPN2 ---
Internal Medicine - PN: Subj *Date: 12/03/20 *Time: 10:30 Interval history: She is 48 hours post section for twins. She is doing very well. Her lochia is normal. She is breast-feeding. Exam Vital signs and Labs for Last 24 Hours: Temp Pulse Resp BP Pulse Ox 98.4 F 69 20 100/58 L 100 12/03/20 08:00 12/03/20 08:00 12/03/20 08:00 12/03/20 08:00 12/03/20 08:00 Laboratory Results - last 24 hr 12/01/20 05:25: Blood Type A Positive, Antibody Screen Negative, Crossmatch (AHG) See Detail I & O for Last 24 hours: Intake & Output 11/30/20 12/01/20 12/02/20 12/03/20 11:59 11:59 11:59 11:59 Intake Total 1000 / 1000 Output Total 80 / 80 Balance 920 / 920 Weight 317 lb Microbiology Reports for the Last 24 Hours: Microbiology 12/01/20 05:00 Urine,Clean Catch Urine Culture - Preliminary - Constitutional no acute distress - *Routine HEENT Exam Head: Present: normocephalic Eye: Present: EOMI, PERRL ENT: Present: mucous membranes moist Assessment and Plan (1) Previous section Status: Acute Category: Surgical Code(s): Z98.891 - History of uterine scar from previous surgery (2) Twin gestation in third trimester Status: Acute Qualifiers: Multiple gestation type: dichorionic and diamniotic Qualified Code(s): O30.043 - Twin , dichorionic/diamniotic, third trimester Category: Medical Code(s): O30.003 - Twin , unspecified number of placenta and unspecified number of amniotic sacs, third trimester (3) Sterilization Status: Acute Category: Medical Code(s): Z30.2 - Encounter for sterilization (4) delivery delivered Status: Acute Category: Medical Code(s): O82 - Encounter for delivery without indication - Assessment and plan all Dx Assessment and Plan for all problems:: She is doing well. We will plan to send her home tomorrow.
[2020-12-03 16:00] VITALS: BP 127/60; PULSE 61; RESP 20; TEMP 36.4; O2SAT 100
[2020-12-03 20:22] VITALS: BP 128/76; PULSE 63; RESP 18; TEMP 36.7; O2SAT 99
[2020-12-04 04:33] VITALS: BP 124/62; PULSE 64; RESP 16; TEMP 36.9; O2SAT 98
[2020-12-04 07:45] VITALS: BP 129/60; PULSE 68; RESP 20; TEMP 37.1; O2SAT 100
--- NOTE | 2020-12-04 09:46 | HMH.OBDCSM ---
General - General Admission date:: 12/01/20 Discharge date: 12/04/20 HPI - History of Present Illness History of present illness: She is a 35-year-old 9 para 7 aborta 1 who was 38 weeks gestational age. She had twins. She has had a previous section as result of that was offered repeat lower segment transverse section at term. She also expressed desire for sterilization. Hospital Course Hospital Course: On December 01, 2020 she underwent a repeat lower segment transverse section and bilateral salpingectomy. She delivered a liveborn female twins at 8:00 for baby A and 802 for baby B. There were both females. Twin A weighed 7 pounds 5 ounces and twin B weighed 7 pounds 7 ounces. Twin A had Apgars of 9 at 1 minute and 9 at 5 minutes twin B 8 at 1 minute and 9 at 5 minutes. She has done well post and has remained afebrile throughout her hospitalization. She has some bilateral pedal edema but no calf tenderness no swelling in her calves. She denies any shortness of breath. She is breast-feeding. Her pain is well controlled. She did undergo a tap block and she does have some numbness along the left side of her incision. I have reassured her about this. She is discharged home to follow-up with me in approximately 2 weeks time. She will continue with her vitamins and iron. She was given the usual instructions with respect to limiting her activity, driving and sexual activity. She was given instructions with respect to wound care. She was given a prescription for Percocet 5/325 number 30 tablets. She was also given a prescription for Toradol No. 20 tablets. Her condition on discharge is stable and improved. Rhogam Administration: Not Indicated Objective Vital signs: Temp Pulse Resp BP Pulse Ox 98.7 F 68 20 129/60 100 12/04/20 07:45 12/04/20 07:45 12/04/20 07:45 12/04/20 07:45 12/04/20 07:45 no acute distress - *Routine HEENT Exam Head: Present: normocephalic Eye: Present: EOMI, PERRL ENT: Present: mucous membranes moist - *Routine Abdominal Exam Present: soft, normoactive bowel sounds. Absent: tenderness Comments: Her incision is clean dry - *Routine Extremities Exam Present: edema. Absent: cyanosis, clubbing Comments: She has 2+ edema bilaterally. Results Labs on day of discharge: Labs from last 24 hours 12/01/20 05:25 Crossmatch (AHG) See Detail Preliminary micro results at discharge 12/01/20 05:00 Urine Culture - Preliminary Urine,Clean Catch DS: Diagnosis - Discharge Diagnosis (1) Previous section Status: Acute (2) Twin gestation in third trimester Status: Acute (3) Sterilization Status: Acute (4) delivery delivered Status: Acute Discharge Plan - Patient Discharge Instructions ACTIVITY: No heavy lifting DIET: continue same diet Additional Instructions: Nothing in the vagina for 6 weeks No strenuous activity or heavy lifting. Monitor incision at least twice daily and cleanse at least twice daily Keep incision area dry Patient Instructions: Depression, Hemorrhage, DI for , DI for Pre-eclampsia, DI for Surgical Site Infection, DI for Postoperative Pain, [facility] Post Discharge Instructions, Preventing the Spread of Coronavirus Discharge Instructions - Follow up Plan Follow up with: Cody Rausch MD [Primary Care Provider] - 12/16/20 9:45 am Disposition: Home, Self-Care Condition at discharge:: Stable Home Medications: Home Medications Medication Instructions Recorded Confirmed Type Cyanocobalamin (Vitamin B-12) 1,000 mcg IJ MONTHLY 10/01/18 12/01/20 History [B-12 Compliance] levothyroxine 25 mcg tablet 25 mcg PO DAILY tab 01/15/20 12/01/20 History sertraline 100 mg tablet 100 mg PO DAILY tab 05/15/20 12/01/20 History Ketorolac Tromethamine [Toradol 10 mg PO Q6H 5 Days #20 tab 12/04/20 Rx 10mg ta
== END 2020-12-04 12:48 | disposition home or self-care (01) | DRG 785 ==
PROVIDERS: Admitting Provider Nurse Practitioner Obstetrics & Gynecology; PCP Nurse Practitioner Obstetrics & Gynecology; Visit Provider Nurse Practitioner Obstetrics & Gynecology
PROC: 10D00Z1 Extraction of Products of Conception, Low, Open Approach (ICD-10-PCS; CPT 59514; principal; 2020-12-01 07:30)
DX: O32.2XX1 Maternal care for transverse and oblique lie, fetus 1 (principal); O32.2XX2 Maternal care for transverse and oblique lie, fetus 2; O34.211 Maternal care for low transverse scar from previous cesarean delivery; N85.8 Other specified noninflammatory disorders of uterus; Z3A.38 38 weeks gestation of pregnancy; Z37.2 Twins, both liveborn; O30.043 Twin pregnancy, dichorionic/diamniotic, third trimester; Z30.2 Encounter for sterilization
CPT/HCPCS: 59514; 58700; 59025; 80048; 81001; 82800; 85007; 85014; 85018; 85025; 86850; 87086; 88302; 88307; 94761; C9290; G0283; J1956; J2405; U0003

== ENCOUNTER → 2020-12-08 11:35 | Outpatient (CLI) | payer OTHER, SELFPAY ==
[2020-12-08 11:58] LABS: Basophils % 0.4 % (0.1-2.0); Eosinophils # 0.2 K/mm3 (0.0-0.4); Eosinophils % 2.8 % (0.1-12.0); Hematocrit 35.4 % (37.0-47.0); Hemoglobin 11.7 g/dL (12.2-16.2); Lymphocytes # 1.3 K/mm3 (0.7-4.5); Lymphocytes % 17.8 % (10-50); Mean Corpuscular HGB Conc 33.1 g/dL (31.8-35.4); Mean Corpuscular Hemoglobin 28.4 pg (27.0-31.2); Mean Corpuscular Volume 85.9 fl (81-99); Mean Platelet Volume 7.5 fl (7.4-10.4); Monocytes # 0.4 K/mm3 (0.1-1.0); Monocytes % 5.8 % (1.7-9.3); Neutrophils # 5.2 K/mm3 (1.8-7.8); Neutrophils % 73.2 % (37.0-80.0); Platelet Count 293 K/mm3 (142-424); Red Blood Count 4.12 M/mm3 (4.20-5.40); Red Cell Distribution Width 21.6 % (11.5-17.5); White Blood Count 7.2 K/mm3 (4.8-10.8)
--- NOTE | 2020-12-08 12:01 | CA_ITS ---
APPROVED REPORT Bilateral Lower Extremity Venous Study for DVT. Online User Experience Strategist: NAVIN white, victoriano Indications one week post Risk Factors Obesity i week left leg edema Vein Imaging CFV (L): compressive, spontaneous, phasic, augmentation SFJ (L): compressive, spontaneous, phasic, augmentation FEM (L): Compressiblecompressive, spontaneous, phasic, augmentation POP (L): compressive, spontaneous, phasic, augmentation DFV (L): compressive, spontaneous, phasic, augmentation PTV (L): compressive, spontaneous, phasic, augmentation GSV (L): compressive, spontaneous, phasic, augmentation SSV (L): compressive, spontaneous, phasic, augmentation Peroneals (L):compressive, spontaneous, phasic, augmentation GAS (L): compressive, spontaneous, phasic, augmentation Findings Color flow duplex demonstrates no evidence of DVT of the following left lower extremity Veins:Common Femoral Vein, Femoral Vein, Popliteal Vein, Posterior Tibial Veins. Negative for DVT. Conclusion Negative for DVT. Electronically signed by : Matthew Dent MD 12/08/2020 15:41:27
== END ==
PROVIDERS: PCP Internal Medicine Adolescent Medicine; Visit Provider Nurse Practitioner Obstetrics & Gynecology
DX: R23.8 Other skin changes (principal)
CPT/HCPCS: 36415; 85025; 93971

== ENCOUNTER 2021-01-05 12:30 | Outpatient (CLI) | payer OTHER, SELFPAY ==
[2021-01-05 12:42] VITALS: BP 125/76; PULSE 67; RESP 18; O2SAT 97
== END 2021-01-05 12:42 | disposition home or self-care (01) ==
LOC: INF 12:36
PROVIDERS: Visit Provider Nurse Practitioner Obstetrics & Gynecology
DX: E53.8 Deficiency of other specified B group vitamins (principal)
CPT/HCPCS: 96372

== ENCOUNTER → 2021-01-23 12:28 | Outpatient (CLI) | payer OTHER, SELFPAY | PROVIDERS: Visit Provider Internal Medicine Adolescent Medicine | DX: R30.9 Painful micturition, unspecified (principal) | CPT/HCPCS: 87086 ==

== ENCOUNTER 2021-02-05 12:30 | Outpatient (CLI) | payer OTHER, SELFPAY ==
[2021-02-05 13:50] VITALS: BP 160/81; PULSE 68; RESP 18; O2SAT 97
== END 2021-02-05 13:50 | disposition home or self-care (01) ==
LOC: INF 13:56
PROVIDERS: Visit Provider Nurse Practitioner Obstetrics & Gynecology
DX: E53.8 Deficiency of other specified B group vitamins (principal)
CPT/HCPCS: 96372

== ENCOUNTER → 2021-03-24 07:50 | Outpatient (CLI) | payer OTHER, SELFPAY ==
[2021-03-24 08:28] LABS: Basophils % 0.8 % (0.1-2.0); Eosinophils # 0.1 K/mm3 (0.0-0.4); Eosinophils % 3.5 % (0.1-12.0); Hematocrit 39.7 % (37.0-47.0); Hemoglobin 12.9 g/dL (12.2-16.2); Lymphocytes # 1.1 K/mm3 (0.7-4.5); Lymphocytes % 25.8 % (10-50); Mean Corpuscular HGB Conc 32.4 g/dL (31.8-35.4); Mean Corpuscular Hemoglobin 29.3 pg (27.0-31.2); Mean Corpuscular Volume 90.4 fl (81-99); Mean Platelet Volume 8.4 fl (7.4-10.4); Monocytes # 0.3 K/mm3 (0.1-1.0); Monocytes % 7.2 % (1.7-9.3); Neutrophils # 2.6 K/mm3 (1.8-7.8); Neutrophils % 62.7 % (37.0-80.0); Platelet Count 239 K/mm3 (142-424); Red Blood Count 4.39 M/mm3 (4.20-5.40); Red Cell Distribution Width 13.9 % (11.5-17.5); White Blood Count 4.1 K/mm3 (4.8-10.8)
[2021-03-24 08:35] LABS: Urine Pregnancy, HCG Qual. Negative (Negative)
[2021-03-24 08:55] LABS: Alanine Aminotransferase 13 U/L (12-78); Albumin/Globulin Ratio 1.5 (1.1-1.8); Alkaline Phosphatase 100 U/L (38-126); Anion Gap 11.9 mEq/L (5-15); Aspartate Amino Transferase 22 U/L (14-36); Bilirubin,Total 0.4 mg/dl (0.2-1.3); Blood Urea Nitrogen 9 mg/dl (7-17); Calcium 8.8 mg/dl (8.4-10.2); Carbon Dioxide 30 mmol/L (22.0-30.0); Chloride 102 mmol/L (98-107); Estimated Glomerular Filt Rate 81 ml/min (>60); GFR (African American) 98 ML/MIN (>60); Globulin 2.7 g/dL (1.3-3.2); Glucose 83 mg/dl (74-100); Potassium 3.9 mmoL/L (3.5-5.1); Sodium 140 mmol/L (136-145); Total Protein,Serum 6.7 g/dl (6.3-8.2)
[2021-03-24 08:55] LABS: Chol/HDL Ratio 3.8 (1-3.5); Cholesterol 259 mg/dl (140-200); HDL Cholesterol 68 mg/dl (40-60); Triglycerides 145 mg/dl (30-150); VLDL Cholesterol 29 mg/dL (0-40)
[2021-03-24 08:56] LABS: Magnesium 1.8 mg/dl (1.6-2.3); Phosphorous 3.5 mg/dl (2.5-4.5)
[2021-03-24 09:05] LABS: Direct LDL Cholesterol 156.57 mg/dL (100-129)
[2021-03-24 09:09] LABS: Intact Parathyroid Hormone 61.7 pg/mL (7.5-53.5)
[2021-03-24 09:13] LABS: 25-OH Vitamin D, Total 28.8 ng/mL (30-100)
[2021-03-24 09:26] LABS: Thyroid Stimulating Hormone 3.88 uIU/mL (0.465-4.68)
[2021-03-24 09:44] LABS: Vitamin B12 870 pg/mL (239-931)
[2021-03-24 10:12] LABS: Iron 440 ug/dL (37-170)
[2021-03-24 10:48] LABS: Ferritin 185 ng/ml (6.24-137)
[2021-03-25 12:12] LABS: Prealbumin 24 mg/dL (14-35)
[2021-03-28 19:18] LABS: Vitamin A 50.2 ug/dL (18.9-57.3); Vitamin E Alpha Tocopherol 4.2 mg/L (5.9-19.4); Vitamin E Gamma Tocopherol 0.7 mg/L (0.7-4.9)
[2021-03-30 03:42] LABS: Methylmalonic Acid 169 nmol/L (0-378)
== END ==
PROVIDERS: Nurse Practitioner Family; Physician Assistant; Visit Provider Surgery
DX: S30.1XXA Contusion of abdominal wall, initial encounter (principal)
CPT/HCPCS: 36415; 80053; 80061; 81025; 82131; 82306; 82607; 82728; 82746; 83540; 83735; 83970; 84100; 84134; 84425; 84443; 84446; 84590; 85025; C9803; U0003; U0005

== ENCOUNTER 2021-03-26 10:39 | Day surgery (SDC) | payer OTHER, SELFPAY ==
[2021-03-24 12:45] VITALS: BMI 41.6
[2021-03-26] VITALS (9 sets, daily range): BP systolic 98–141; BP diastolic 45–81; PULSE 53–84; RESP 11–16; TEMP 36.1–36.6; O2SAT 95–100
--- NOTE | 2021-03-26 13:27 | HMH.ANESCL ---
[facility] Anesthesia Checklist - Patient Identification Patient Identification: Arm Band - Structural Data Admitted From: Home Planned Operative Procedure/s: Hematoma evacuation Consent for Planned Operative Procedure(s) Verified: Yes - NPO Status Verified Time NPO: 00:00 - Additional verifications Anesthesia Reactions: Yes (N/V) Hx Blood Transfusions: Yes Blood Transfusion Reaction: No - Airway Assessment C-Spine Mobility Assessed: Yes TMJ Mobility Assessed: Yes Dentition: Good Dentition - Neurological Assessment Level of Consciousness: Awake Hx Seizures: No Numbness or tingling in extremities: No - Anesthesia Plan Anesthesia Risk discussed: Yes Anesthesia Plan: Verified ASA Class: II Anesthesia Type: General [facility] History I have reviewed the patient's past medical history: Yes 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: Reports:: Anxiety, Depression, Migraine, Ulcer, Urinary Tract Infection Denies:: Cancer, Diabetes Mellitus Type 1, Diabetes Mellitus Type 2, Internal Pacemaker, MRSA, Seizures *Have you ever received a pneumonia vaccine?: No *Have you received a flu vaccine this season?: No Other 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: Reports: Anemia, Arthritis, Hypothyroidism, Sinus Problems, Thyroid Disease, Other. Denies: Blood Transfusion Reaction Anesthesia experience/problems:: N/V Other Surgeries: Yes: No Previous Surgery, Bariatric Surgery, , Dilation and Curettage, EGD, Tubal Ligation, Other (leep, rectal tear repair). No: Pacemaker Amputation: No Fractures: No - *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 Last grade of school completed: Some college Smoking Status: Former smoker Tobacco Type: cigarettes Alcohol Intake: never Alcohol Intake Frequency:: other Substance Use Type: denies use *Occupational Status:: unemployed Housing: house Household Members: spouse *Travel in the last 8 weeks: None - Psychiatric History Pschychiatric History:: Reports:: Anxiety, Depression Family Hx:: Cancer, Diabetes, Heart Attack [employer] history: Tubal Ligation
--- NOTE | 2021-03-26 14:31 | HMH.OPNOTE ---
Date of procedure: 03/26/21 Pre-op Diagnosis:: Lower abdominal wall hematoma status post Post-op Diagnosis:: Same Procedure performed:: Incision and drainage of subfascial hematoma Surgeon:: Avel James MD Anesthesia: GETA Estimated blood loss (mL): 5 Operative findings:: Subfascial hematoma between Pfannenstiel incision and umbilicus Operative note:: After informed consent was obtained the patient was taken to the operating room and placed in the supine position. General anesthesia was induced and her abdomen was prepped and draped in a sterile fashion. After infiltration local anesthetic a small longitudinal incision was made between the umbilicus and Pfannenstiel incision along the midline. A combination of electrocautery and blunt dissection was utilized to transect through the deeper subcutaneous tissue. The fascial margin was approached with a palpable underlying hematoma noted. A small fascial incision was made and the large complex hematoma cavity was encountered. The hematoma was evacuated. The fascial defect was reapproximated with interrupted Ethibond and the overlying wound was packed open. Dressings were applied and the patient was transferred recovery in stable condition. Condition: stable Disposition: PACU Specimens:: None Complications:: No immediate
--- NOTE | 2021-03-26 14:37 | HMH.ANESI ---
[facility] Anesthesia Record Part I Intake, IV Amount: 500 Estimated blood loss (mL): 5 Urine output (mL): 0 Blood Pressure: 98/45 SaO2: 95 Pulse Rate: 58 Respiratory Rate: 11 Temperature: 97.4 F Patient is:: Drowsy, Oral/Nasal airway Stable to PACU at:: 14:35
[2021-03-28 17:34] VITALS: BP 124/74; PULSE 84; TEMP 36.6
--- NOTE | 2021-03-28 17:34 | HMH.ANESII ---
[facility] Anesthesia Record Part II Discharge Time: 14:55 Destination: Surgical Day Care (OP Surgery) PACU nurse assessment reviewed?: Yes Patient Condition:: Good Anesthesia Complications:: None Swallowing reflex intact?: Yes Cyanosis?: No Blood Pressure: 124/74 Pulse Rate: 84 Temperature: 97.9 F Mental Status: Alert & Oriented Pain level:: 0 Nausea and/or vomitting:: None Intake, IV Amount: 0
== END 2021-03-26 15:50 | disposition home or self-care (01) ==
LOC: OR 10:40
PROVIDERS: PCP Internal Medicine Adolescent Medicine; Visit Provider Surgery
PROC: (CPT 10140; principal; 2021-03-26 12:15)
DX: N99.840 Postprocedural hematoma of a genitourinary system organ or structure following a genitourinary system procedure (principal); F41.9 Anxiety disorder, unspecified; F32.9 Major depressive disorder, single episode, unspecified; G43.909 Migraine, unspecified, not intractable, without status migrainosus; Z87.19 Personal history of other diseases of the digestive system; D64.9 Anemia, unspecified; M19.90 Unspecified osteoarthritis, unspecified site; E03.9 Hypothyroidism, unspecified; Z87.891 Personal history of nicotine dependence; Z80.9 Family history of malignant neoplasm, unspecified; Z83.3 Family history of diabetes mellitus; Z88.0 Allergy status to penicillin; Z88.1 Allergy status to other antibiotic agents; Z88.2 Allergy status to sulfonamides
CPT/HCPCS: 10140; 96374; J2405

== ENCOUNTER 2021-05-28 06:59 | Emergency (ER) | payer OTHER, SELFPAY ==
[2021-05-28 07:09] VITALS: BP 140/70; PULSE 66; RESP 18; TEMP 37.1; O2SAT 97
[2021-05-28 07:15] VITALS: BP 140/70; PULSE 60; RESP 18; TEMP 36.9; O2SAT 97; BMI 41.2
--- NOTE | 2021-05-28 07:22 | CT_ITS ---
PROCEDURE INFORMATION: Exam: CT Head Without Contrast Exam date and time: 05/28/2021 7:22 AM Age: 35 years old Clinical indication: Injury or trauma; Fall; Blunt trauma (contusions or hematomas); Without loss of consciousness; Patient HX: Fell 05/19/21, hit back of head TECHNIQUE: Imaging protocol: Computed tomography of the head without contrast. Radiation optimization: All CT scans at this facility use at least one of these dose optimization techniques: automated exposure control; mA and/or kV adjustment per patient size (includes targeted exams where dose is matched to clinical indication); or iterative reconstruction. COMPARISON: BRAINWW MR head/brain wo/w con 11/21/2017 9:47 AM FINDINGS: Brain: Normal. No hemorrhage. Unremarkable white matter. No mass effect. Cerebral ventricles: No ventriculomegaly. Paranasal sinuses: Right maxillary sinus polyp/retention cyst. Mastoid air cells: Visualized mastoid air cells are well aerated. Bones/joints: Unremarkable. No acute fracture. Soft tissues: Unremarkable. IMPRESSION: 1. No acute intracranial abnormalities. 2. Right maxillary sinus polyp/retention cyst.
--- NOTE | 2021-05-28 07:27 | CT_ITS ---
PROCEDURE INFORMATION: Exam: CT Cervical Spine Without Contrast Exam date and time: 05/28/2021 7:27 AM Age: 35 years old Clinical indication: Neck pain; Additional info: Fell TECHNIQUE: Imaging protocol: Computed tomography images of the cervical spine without contrast. Radiation optimization: All CT scans at this facility use at least one of these dose optimization techniques: automated exposure control; mA and/or kV adjustment per patient size (includes targeted exams where dose is matched to clinical indication); or iterative reconstruction. COMPARISON: CR [id number] XR cervical spine 3V 07/26/2018 4:55 PM FINDINGS: Vertebrae: No acute fracture. Normal alignment. C2-C3: No significant disc protrusion. No severe spinal canal stenosis. No significant neural foraminal narrowing. C3-C4: No significant disc protrusion. No severe spinal canal stenosis. No significant neural foraminal narrowing. C4-C5: No significant disc protrusion. No severe spinal canal stenosis. No significant neural foraminal narrowing. C5-C6: No significant disc protrusion. No severe spinal canal stenosis. No significant neural foraminal narrowing. C6-C7: No significant disc protrusion. No severe spinal canal stenosis. No significant neural foraminal narrowing. C7-T1: No significant disc protrusion. No severe spinal canal stenosis. No significant neural foraminal narrowing. Soft tissues: Unremarkable. Lungs: Lung apices are normal. Right maxillary sinus polyp/retention cyst. IMPRESSION: No acute cervical spine abnormalities. Right maxillary sinus polyp/retention cyst.
--- NOTE | 2021-05-28 07:28 | PC.NURSE ---
Called [facility] to request ct
--- NOTE | 2021-05-28 07:36 | PC.NURSE ---
Pt went to CT
[2021-05-28 07:38] LABS: Urine Pregnancy, HCG Qual. Negative (Negative)
--- NOTE | 2021-05-28 07:52 | PC.NURSE ---
Pt is back in room resting
[2021-05-28 08:01] VITALS: BP 143/73; PULSE 53; RESP 18; O2SAT 95
--- NOTE | 2021-05-28 08:14 | HMH.EDGENADL ---
ED Disposition Clinical Impression: Post-traumatic headache Qualifiers: Headache chronicity pattern: acute headache Intractability: intractable Qualified Code(s): G44.311 - Acute post-traumatic headache, intractable Disposition: Home, Self-Care Condition on Discharge: Good Instructions: DI for Headache Additional Instructions: Take Ibuprofen 800 mg every 8 hrs for pain. Additional instructions for HEADACHE: See your physician as soon as possible for further evaluation. Return immediately if worsening headache, vomiting, problems with vision or speech, fever, numbness or weakness of the extremities, neck pain or stiffness. Referrals: Otto Jamil MD [Primary Care Provider] - - Critical Care Critical Care Time: No Attestation: On 05/28/21, the high probability of a clinically significant, sudden or life threatening deterioration of the following system(s) required my full and direct attention, intervention and personal management. The time I documented below is in addition to time spent performing reported procedures but includes the following listed in this critical care notation. Medical Decision Making - Bertin Inquiry Pt receiving controlled substance: No Vital Signs: 05/28/21 07:09 05/28/21 07:15 05/28/21 08:01 Temperature 98.7 F 98.4 F Temperature Source Oral Oral Pulse Rate 66 53 L Pulse Rate [Right Radial] 60 Respiratory Rate 18 18 18 Blood Pressure 140/70 143/73 H Blood Pressure [Right Arm] 140/70 Blood Pressure Mean [Right Arm] 93 Blood Pressure Source Manual Cuff/ Doppler Blood Pressure Source [Right Arm] Automatic Cuff Blood Pressure Position Supine Blood Pressure Position [Right Arm] Sitting 02 Sat by Pulse Oximetry 97 97 95 Oxygen Delivery Method Room Air Room Air - Lab Data Lab Results 05/28/21 07:30: Urine HCG, Qual Negative - CT Data CT Scan: Head, C-Spine Time Received: 08:[address] Reviewed: Yes: I have viewed the radiologist's interpretation Findings Narrative: PROCEDURE INFORMATION: Exam: CT Cervical Spine Without Contrast Exam date and time: 05/28/2021 7:27 AM Age: 35 years old Clinical indication: Neck pain; Additional info: Fell TECHNIQUE: Imaging protocol: Computed tomography images of the cervical spine without contrast. Radiation optimization: All CT scans at this facility use at least one of these dose optimization techniques: automated exposure control; mA and/or kV adjustment per patient size (includes targeted exams where dose is matched to clinical indication); or iterative reconstruction. COMPARISON: CR [id number] XR cervical spine 3V 07/26/2018 4:55 PM FINDINGS: Vertebrae: No acute fracture. Normal alignment. C2-C3: No significant disc protrusion. No severe spinal canal stenosis. No significant neural foraminal narrowing. C3-C4: No significant disc protrusion. No severe spinal canal stenosis. No significant neural foraminal narrowing. C4-C5: No significant disc protrusion. No severe spinal canal stenosis. No significant neural foraminal narrowing. C5-C6: No significant disc protrusion. No severe spinal canal stenosis. No significant neural foraminal narrowing. C6-C7: No significant disc protrusion. No severe spinal canal stenosis. No significant neural foraminal narrowing. C7-T1: No significant disc protrusion. No severe spinal canal stenosis. No significant neural foraminal narrowing. Soft tissues: Unremarkable. Lungs: Lung apices are normal. Right maxillary sinus polyp/retention cyst. IMPRESSION: No acute cervical spine abnormalities. Right maxillary sinus polyp/retention cyst. EDURE INFORMATION: Exam: CT Head Without Contrast Exam date and time: 05/28/2021 7:22 AM Age: 35 years old Clinical indication: Injury or trauma; Fall; Blunt trauma (contusions or hematomas); Without loss of c
[2021-05-28 08:42] VITALS: BP 130/81; PULSE 50; RESP 18; TEMP 36.7; O2SAT 99
== END 2021-05-28 08:43 | disposition home or self-care (01) ==
PROVIDERS: Emergency Medicine; Emergency Provider Emergency Medicine; PCP Internal Medicine Adolescent Medicine
DX: G44.311 Acute post-traumatic headache, intractable (principal); W01.0XXA Fall on same level from slipping, tripping and stumbling without subsequent striking against object, initial encounter; Y92.014 Private driveway to single-family (private) house as the place of occurrence of the external cause; E03.9 Hypothyroidism, unspecified; F41.8 Other specified anxiety disorders; Z88.0 Allergy status to penicillin; Z88.2 Allergy status to sulfonamides
CPT/HCPCS: 70450; 72125; 81025; 96372; 99282

== ENCOUNTER → 2021-07-23 13:21 | Outpatient (CLI) | payer OTHER, SELFPAY ==
--- NOTE | 2021-07-23 13:24 | MR_ITS ---
FINAL REPORT CLINICAL HISTORY: worsening headaches w/ falls, gait imbalance COMPARISON: November 21, 2017 FINDINGS: Multiplanar MR imaging of the brain was performed without contrast. There is no evidence of intracranial hemorrhage or mass. The ventricular size is normal. There is no evidence of shift of the midline structures. No abnormal extra-axial fluid collection is identified. The posterior fossa and brainstem have an unremarkable appearance. No area of abnormal restricted diffusion is identified. Normal major vessel vascular flow voids are seen. There is a retention cyst or polyp in the right maxillary sinus. IMPRESSION: Unremarkable brain with no acute intracranial abnormality. Reviewed, Interpreted and Dictated by Brayan Palafox III, MD Transcribed by Moshe Morillo Authenticated by Brayan Palafox III, MD on 07/23/2021 02:47:16 PM [facility]
--- NOTE | 2021-07-23 13:24 | MR_ITS ---
FINAL REPORT CLINICAL HISTORY: neck pain, falls, imbalance, brisk reflexes FINDINGS: Multiplanar MR imaging of the cervical spine was performed without contrast. On the sagittal T2-weighted images, disc degeneration is seen at multiple levels. There is no evidence of fracture. The vertebral alignment is normal. The cervical spinal cord has an unremarkable appearance without evidence of mass, edema or syrinx. No significant canal stenosis is identified. The cervicomedullary junction is normal. C2-3: There is no significant canal stenosis or neural foraminal narrowing. C3-4: There is no significant canal stenosis or neural foraminal narrowing. C4-5: There is a small central disc protrusion. There is no significant canal stenosis or neural foraminal narrowing. C5-6: There is a small right paracentral disc protrusion. There is no significant canal stenosis or neural foraminal narrowing. C6-7: There is an annular bulge with a small central disc protrusion. There is no significant canal stenosis or neural foraminal narrowing. C7-T1: There is no significant canal stenosis or neural foraminal narrowing. IMPRESSION: Small disc protrusions at C4-C5, C5-C6 and C6-C7 without significant central canal stenosis. Reviewed, Interpreted and Dictated by Brayan Palafox III, MD Transcribed by Moshe Morillo Authenticated by Brayan Palafox III, MD on 07/23/2021 02:47:11 PM [facility]
[2021-07-23 15:31] LABS: Basophils # 0.1 K/mm3 (0-0.2); Basophils % 1.1 % (0.1-2.0); Eosinophils # 0.1 K/mm3 (0.0-0.4); Eosinophils % 2.1 % (0.1-12.0); Hematocrit 41.2 % (37.0-47.0); Hemoglobin 13.4 g/dL (12.2-16.2); Lymphocytes # 1.4 K/mm3 (0.7-4.5); Lymphocytes % 21.3 % (10-50); Mean Corpuscular HGB Conc 32.6 g/dL (31.8-35.4); Mean Corpuscular Hemoglobin 31.7 pg (27.0-31.2); Mean Corpuscular Volume 97.1 fl (81-99); Mean Platelet Volume 8.1 fl (7.4-10.4); Monocytes # 0.3 K/mm3 (0.1-1.0); Monocytes % 5.1 % (1.7-9.3); Neutrophils # 4.5 K/mm3 (1.8-7.8); Neutrophils % 70.4 % (37.0-80.0); Platelet Count 324 K/mm3 (142-424); Red Blood Count 4.24 M/mm3 (4.20-5.40); Red Cell Distribution Width 13.1 % (11.5-17.5); White Blood Count 6.4 K/mm3 (4.8-10.8)
[2021-07-23 16:04] LABS: Alanine Aminotransferase 9 U/L (12-78); Albumin Level 4.3 g/dl (3.5-5.0); Albumin/Globulin Ratio 1.7 (1.1-1.8); Alkaline Phosphatase 73 U/L (38-126); Anion Gap 8.4 mEq/L (5-15); Aspartate Amino Transferase 20 U/L (14-36); Bilirubin,Total 0.4 mg/dl (0.2-1.3); Blood Urea Nitrogen 15 mg/dl (7-17); Calcium 9.4 mg/dl (8.4-10.2); Carbon Dioxide 31 mmol/L (22.0-30.0); Chloride 102 mmol/L (98-107); Estimated Glomerular Filt Rate 94 ml/min (>60); GFR (African American) 113 ML/MIN (>60); Globulin 2.5 g/dL (1.3-3.2); Glucose 92 mg/dl (74-100); Potassium 4.4 mmoL/L (3.5-5.1); Sodium 137 mmol/L (136-145); Total Protein,Serum 6.8 g/dl (6.3-8.2)
[2021-07-23 16:35] LABS: Thyroid Stimulating Hormone 3.01 uIU/mL (0.465-4.68)
[2021-07-23 17:10] LABS: Vitamin B12 368 pg/mL (239-931)
[2021-07-23 17:17] LABS: Folate 8.41 ng/mL
== END ==
PROVIDERS: PCP Internal Medicine Adolescent Medicine; Visit Provider Nurse Practitioner Family
DX: R51.9 Headache, unspecified (principal); R42 Dizziness and giddiness; M54.2 Cervicalgia; R26.89 Other abnormalities of gait and mobility; R29.2 Abnormal reflex; R29.6 Repeated falls; E53.8 Deficiency of other specified B group vitamins; F39 Unspecified mood [affective] disorder; R00.1 Bradycardia, unspecified; Z86.2 Personal history of diseases of the blood and blood-forming organs and certain disorders involving the immune mechanism; Z98.84 Bariatric surgery status
CPT/HCPCS: 36415; 70551; 72141; 76376; 80053; 82607; 82746; 84443; 85025; 93270

== ENCOUNTER 2021-07-29 15:38 | Outpatient (RCR) | payer OTHER, SELFPAY ==
--- NOTE | 2021-07-29 17:02 | HMH.PTOPEV ---
PT Outpatient Evaluation Rehab PT Outpatient Evaluation Start: 07/29/21 15:43 Freq: Status: Active Protocol: Document 07/29/21 16:47 TILANADER (Rec: 07/29/21 17:02 JESS [id number]) Electronically Signed By Solitario Felder, PT 07/29/21 16:47 Outpatient Therapy Subjective History Subjective History This is the initial Physical Therapy evaluation for Malathi Schilling. Pt is a 36 y/o female referred to PT for c/o dizziness, neck pain, and headaches . Pt reports pain in neck for years and headaches for a long time. Pt reports dizziness began insidiously ~ 1-2 years ago. Pt states she mostly notices c /o dizziness w/ rapid head movement or quickly changing positions. Pt states she did therapy for neck pain and it improved but has not done therapy for ALEXIS's or dizziness. Chief Complaint Pain,Stiff,Other Symptom Type Ache,Throb,Sharp,Dull,Other Symptoms Relieved By Rest/Positioning Symptoms Aggravated By Physical Activity,Lifting Prior Functional Limitations Lifting,Housework,Recreation Activity Current Functional Limitations Lifting,Housework,Recreation Activity,Balance Symptom Description Intermittent Cervical Eval Palpation Cervical Muscles R Cervical Paraspinal,L Cervical Paraspinal,R Suboccipital,L Suboccipital,R CT Junction,L CT Junction,R Upper Trapezius,L Upper Trapezius Cervical/Thoracic Palpation Findings Tenderness,Trigger Point, Muscle Guarding Posture Head/C-Spine Posture Sitting Position Excess Extension,C-Spine Flattened Head/C-Spine Posture Standing Position Excess Extension,C-Spine Flattened Flexibility Deficits Upper Trapezius Muscle Length (R) Moderate Tightness,(L) Moderate Tightness Special Test C-Spine Foraminal Compression (Spurling) Negative Left,Negative Right Test C-Spine Foraminal Distraction Test Positive C-Spine Compression Test Negative Left,Negative Right Balance Eval Chief Complaint Did you feel dizzy, unsteady or faint? Yes Hx of Falls Hx Falls Yes Gait/Posture Asssessment
== END 2021-07-29 15:40 | disposition home or self-care (01) ==
LOC: PT 15:38
PROVIDERS: PCP Internal Medicine Adolescent Medicine; Visit Provider Nurse Practitioner Family
DX: R42 Dizziness and giddiness (principal); R51.9 Headache, unspecified; M54.2 Cervicalgia; R29.6 Repeated falls; R26.89 Other abnormalities of gait and mobility; R29.2 Abnormal reflex
CPT/HCPCS: 97163

== ENCOUNTER → 2021-11-02 10:36 | Outpatient (CLI) | payer OTHER, SELFPAY ==
[2021-11-02 11:09] LABS: Basophils # 0.1 K/mm3 (0-0.2); Basophils % 1.5 % (0.1-2.0); Eosinophils # 0.2 K/mm3 (0.0-0.4); Eosinophils % 2.4 % (0.1-12.0); Hematocrit 40.9 % (37.0-47.0); Lymphocytes # 1.2 K/mm3 (0.7-4.5); Lymphocytes % 18.4 % (10-50); Mean Corpuscular HGB Conc 34.1 g/dL (31.8-35.4); Mean Corpuscular Hemoglobin 32.3 pg (27.0-31.2); Mean Corpuscular Volume 94.7 fl (81-99); Monocytes # 0.4 K/mm3 (0.1-1.0); Monocytes % 5.6 % (1.7-9.3); Neutrophils # 4.6 K/mm3 (1.8-7.8); Neutrophils % 72.2 % (37.0-80.0); Platelet Count 283 K/mm3 (142-424); Red Blood Count 4.32 M/mm3 (4.20-5.40); Red Cell Distribution Width 13.2 % (11.5-17.5); White Blood Count 6.4 K/mm3 (4.8-10.8)
[2021-11-02 11:26] LABS: Alanine Aminotransferase 14 U/L (12-78); Albumin Level 3.9 g/dl (3.5-5.0); Albumin/Globulin Ratio 1.7 (1.1-1.8); Alkaline Phosphatase 77 U/L (38-126); Anion Gap 6.3 mEq/L (5-15); Aspartate Amino Transferase 17 U/L (14-36); Bilirubin,Total 0.4 mg/dl (0.2-1.3); Blood Urea Nitrogen 15 mg/dl (7-17); Calcium 8.8 mg/dl (8.4-10.2); Carbon Dioxide 32 mmol/L (22.0-30.0); Chloride 104 mmol/L (98-107); Estimated Glomerular Filt Rate 112 ml/min (>60); GFR (African American) 135 ML/MIN (>60); Globulin 2.3 g/dL (1.3-3.2); Glucose 90 mg/dl (74-100); Potassium 4.3 mmoL/L (3.5-5.1); Sodium 138 mmol/L (136-145); Total Protein,Serum 6.2 g/dl (6.3-8.2)
[2021-11-02 11:43] LABS: Free Thyroxine Index 1.8 ug/dL (5.93-13.13); T4 (Thyroxine) 6.3 ug/dl (5.53-11.0); Triiodothryronine (T3) Uptake 28 % (23.5-40.5)
[2021-11-02 11:56] LABS: Thyroid Stimulating Hormone 2.79 uIU/mL (0.465-4.68)
[2021-11-03 08:18] LABS: Estradiol 73.6 pg/mL (.); FSH 3.5 mIU/mL (.)
== END ==
PROVIDERS: Visit Provider Nurse Practitioner Obstetrics & Gynecology
DX: N92.6 Irregular menstruation, unspecified (principal); R53.82 Chronic fatigue, unspecified
CPT/HCPCS: 36415; 80053; 82670; 83001; 83002; 84436; 84443; 84479; 85025

== ENCOUNTER → 2022-04-25 16:23 | Outpatient (CLI) | payer OTHER, SELFPAY ==
--- NOTE | 2022-04-25 17:10 | MR_ITS ---
PROCEDURE INFORMATION: Exam: MR Head Without Contrast Exam date and time: 04/25/2022 5:11 PM Age: 36 years old Clinical indication: Pain; Headache; Additional info: Headache. Constant migraine headache. Dizziness. Blurred vision. Symptoms xyears. TECHNIQUE: Imaging protocol: Magnetic resonance imaging of the head without contrast. COMPARISON: MR HEAD/BRAIN WO CON 07/23/2021 1:32 PM FINDINGS: Brain: Basilar cisterns are normal. Tectum normal. No acute intracranial process. Cerebral ventricles: Normal. No ventriculomegaly. Pituitary gland and sella: Sella normal. Pre-pontine region, suprasellar region, and cerebellar angles are normal. Bones/joints: Clivus normal. Calvarium is normal marrow signal. Paranasal sinuses: Polyp versus retention cyst within the right maxillary sinus. Mastoid air cells: Normal as visualized. No mastoid effusion. Orbital cavities: Unremarkable. Soft tissues: Soft tissues are unremarkable Other findings: No bleed, mass, or shift of structures. Diploe is normal. No diffusion restricted segments. IMPRESSION: 1. No acute intracranial process. 2. Polyp versus retention cyst within the right maxillary sinus.
[2022-04-25 17:54] LABS: Basophils % 0.6 % (0.1-2.0); Eosinophils # 0.1 K/mm3 (0.0-0.4); Eosinophils % 2.1 % (0.1-12.0); Hematocrit 39.1 % (37.0-47.0); Hemoglobin 12.7 g/dL (12.2-16.2); Lymphocytes # 1.3 K/mm3 (0.7-4.5); Lymphocytes % 18.7 % (10-50); Mean Corpuscular HGB Conc 32.6 g/dL (31.8-35.4); Mean Corpuscular Hemoglobin 30.6 pg (27.0-31.2); Mean Platelet Volume 8.2 fl (7.4-10.4); Monocytes # 0.4 K/mm3 (0.1-1.0); Monocytes % 5.9 % (1.7-9.3); Neutrophils % 72.7 % (37.0-80.0); Platelet Count 278 K/mm3 (142-424); Red Blood Count 4.16 M/mm3 (4.20-5.40); Red Cell Distribution Width 12.8 % (11.5-17.5); White Blood Count 6.9 K/mm3 (4.8-10.8)
[2022-04-25 18:07] LABS: Alanine Aminotransferase 13 U/L (12-78); Albumin Level 3.8 g/dl (3.5-5.0); Albumin/Globulin Ratio 1.6 (1.1-1.8); Alkaline Phosphatase 85 U/L (38-126); Anion Gap 12.9 mEq/L (5-15); Aspartate Amino Transferase 21 U/L (14-36); Bilirubin,Total 0.3 mg/dl (0.2-1.3); Blood Urea Nitrogen 12 mg/dl (7-17); Calcium 8.5 mg/dl (8.4-10.2); Carbon Dioxide 31 mmol/L (22.0-30.0); Chloride 102 mmol/L (98-107); Estimated Glomerular Filt Rate 80 ml/min (>60); GFR (African American) 97 ML/MIN (>60); Globulin 2.4 g/dL (1.3-3.2); Glucose 93 mg/dl (74-100); Potassium 3.9 mmoL/L (3.5-5.1); Sodium 142 mmol/L (136-145); Total Protein,Serum 6.2 g/dl (6.3-8.2)
[2022-04-25 19:11] LABS: Vitamin B12 274 pg/mL (239-931)
[2022-04-25 19:17] LABS: Folate 6.61 ng/mL
== END ==
PROVIDERS: PCP Internal Medicine Adolescent Medicine; Visit Provider Nurse Practitioner Family
DX: G43.019 Migraine without aura, intractable, without status migrainosus (principal); F39 Unspecified mood [affective] disorder; G47.00 Insomnia, unspecified; R46.89 Other symptoms and signs involving appearance and behavior; R63.5 Abnormal weight gain; E66.01 Morbid (severe) obesity due to excess calories; Z68.43 Body mass index [BMI] 50.0-59.9, adult; Z78.9 Other specified health status
CPT/HCPCS: 36415; 70551; 80053; 82607; 82746; 84443; 85025

== ENCOUNTER → 2022-04-28 09:37 | Outpatient (CLI) | payer OTHER, SELFPAY ==
--- NOTE | 2022-04-28 09:38 | US_ITS ---
FINAL REPORT CLINICAL HISTORY: heavy periods FINDINGS: Transvaginal sonographic images of the pelvis were obtained. The uterus measures 9.1 x 7.1 x 7.1 cm. The endometrium measures 14 mm, which is at the upper limits of normal. There is a small amount of endometrial fluid, nonspecific. No uterine mass is identified. The right ovary measures 4.6 cm in length and left ovary measures 4.0 cm in length. Normal blood flow seen to the ovaries. Bilateral ovarian cysts are noted with the largest on the right measuring 2.9 cm in the largest on the left measuring 3.7 cm. There is a small amount of pelvic free fluid. IMPRESSION: Bilateral ovarian cysts. Consider follow-up in 6-8 weeks. Reviewed, Interpreted and Dictated by Brayan Palafox III, MD Transcribed by Deana Espinoza Authenticated and [facility]
--- NOTE | 2022-04-28 09:38 | MM_ITS ---
PROCEDURE INFORMATION: Exam: MG Bilateral Screening 3D Mammography Exam date and time: 04/28/2022 9:46 AM Age: 36 years old Clinical indication: Baseline screening mammogram TECHNIQUE: Imaging protocol: Bilateral Screening tomosynthesis and 2D mammography including computer-aided detection (CAD) when performed. COMPARISON: No relevant prior studies available. FINDINGS: MAMMOGRAPHY: Breast composition: There are scattered areas of fibroglandular density. Mass: None. Architectural distortion: No new or suspicious architectural distortion. Calcifications: No new or suspicious calcifications are present Asymmetric density: No new or suspicious asymmetric density is present Skin thickening: None. Axillary adenopathy: None. IMPRESSION: No mammographic evidence of malignancy. Recommend annual screening mammography unless otherwise clinically indicated. ASSESSMENT: BI-RADS category 1: Negative
== END ==
PROVIDERS: PCP Internal Medicine Adolescent Medicine; Visit Provider Nurse Practitioner Obstetrics & Gynecology
DX: Z12.31 Encounter for screening mammogram for malignant neoplasm of breast (principal); Z80.3 Family history of malignant neoplasm of breast; Z87.42 Personal history of other diseases of the female genital tract
CPT/HCPCS: 76830; 77063; 77067

== ENCOUNTER → 2022-05-06 10:52 | Outpatient (CLI) | payer OTHER, SELFPAY ==
[2022-05-06 12:26] VITALS: BMI 50.9
[2022-05-06 12:38] LABS: Basophils # 0.1 K/mm3 (0-0.2); Basophils % 0.9 % (0.1-2.0); Eosinophils # 0.1 K/mm3 (0.0-0.4); Eosinophils % 1.7 % (0.1-12.0); Hematocrit 39.5 % (37.0-47.0); Lymphocytes # 1.3 K/mm3 (0.7-4.5); Lymphocytes % 19.1 % (10-50); Mean Corpuscular HGB Conc 33.1 g/dL (31.8-35.4); Mean Corpuscular Hemoglobin 31.3 pg (27.0-31.2); Mean Corpuscular Volume 94.7 fl (81-99); Mean Platelet Volume 8.2 fl (7.4-10.4); Monocytes # 0.3 K/mm3 (0.1-1.0); Monocytes % 4.8 % (1.7-9.3); Neutrophils % 73.5 % (37.0-80.0); Platelet Count 274 K/mm3 (142-424); Red Blood Count 4.17 M/mm3 (4.20-5.40); Red Cell Distribution Width 12.9 % (11.5-17.5); White Blood Count 6.8 K/mm3 (4.8-10.8)
[2022-05-06 12:42] VITALS: BP 145/60; PULSE 57; RESP 18; TEMP 36.5; O2SAT 100
[2022-05-06 12:45] LABS: Urine Pregnancy, HCG Qual. Negative (Negative)
[2022-05-06 13:00] LABS: Chloride 102 mmol/L (98-107); Potassium 3.6 mmoL/L (3.5-5.1); Sodium 142 mmol/L (136-145)
[2022-05-06 13:02] LABS: Blood Urea Nitrogen 12 mg/dl (7-17); Creatinine Clearance Estimated 89 mL/min (50-200); Estimated Glomerular Filt Rate 70 ml/min (>60); GFR (African American) 85 ML/MIN (>60)
[2022-05-06 13:03] LABS: Alanine Aminotransferase 13 U/L (12-78); Albumin Level 4.3 g/dl (3.5-5.0); Albumin/Globulin Ratio 1.8 (1.1-1.8); Alkaline Phosphatase 91 U/L (38-126); Anion Gap 12.6 mEq/L (5-15); Aspartate Amino Transferase 21 U/L (14-36); Bilirubin,Total 0.5 mg/dl (0.2-1.3); Carbon Dioxide 31 mmol/L (22.0-30.0); Cholesterol 253 mg/dl (140-200); Globulin 2.4 g/dL (1.3-3.2); Glucose 81 mg/dl (74-100); Iron 73 ug/dL (37-170); Total Protein,Serum 6.7 g/dl (6.3-8.2); Triglycerides 114 mg/dl (30-150); VLDL Cholesterol 23 mg/dL (0-40)
[2022-05-06 13:15] LABS: Direct LDL Cholesterol 166.29 mg/dL (100-129)
[2022-05-06 13:16] LABS: Total Iron Binding Capacity 384 ug/dL (265-497)
[2022-05-06 13:19] LABS: 25-OH Vitamin D, Total 26.4 ng/mL (30-100)
--- NOTE | 2022-05-06 13:28 | P.PCN_ITS ---
Procedure Date: 05/06/22 Time: 13:29 Anesthesiologist:: Adriel Ordaz MD Complications:: None Pre-procedure Diagnosis:: Headaches with papilledema Post-procedure Diagnosis:: Same Indications for Procedure:: Patient is a pleasant 36-year-old white female who was referred to us for headaches with papilledema. She was referred for diagnostic lumbar puncture by Dr. Healy. We will obtain opening and closing pressures and CSF for indicated studies. Procedure Details:: Diagnostic lumbar puncture Informed consent was obtained risk and benefits of the procedure were explained to the patient. Patient was taken the procedure room. She was placed in left lateral decubitus position. She was prepped and draped in sterile fashion. C- arm fluoroscopy was used to view the lumbar spine. The skin subtenons tissues were anesthetized using lidocaine. We did have to use a longer needle. We used a 22-gauge 5 inch needle to access the L4-L5 intrathecal space. After obtaining clear CSF opening pressures were found to be 22 cm of water. We obtain CSF into 4 tubes we placed approximately 3 to 4 mL into each tube. Closing pressures were found to be 15 cm of water. We josé miguel approximately 15-18 mL of CSF. Patient tolerated the procedure well with no complications. Plan and Disposition:: We will follow-up with the patient as needed. We did give her precautions to prevent against post dural puncture headache. She is to lie flat drink plenty of fluids and use Excedrin Migraine if she develops a headache. We will follow- up with her as needed and send the fluid for indicated CSF studies ordered by Dr. Healy.
[2022-05-06 13:38] LABS: Ferritin 51.3 ng/ml (6.24-137)
[2022-05-06 14:04] LABS: Glucose,CSF 46 mg/dl (40-70)
[2022-05-06 15:11] LABS: Appearance,CSF Clear (Clear)
[2022-05-06 15:12] LABS: Red Blood Cell,CSF 41 cells/uL (0); White Blood Cell,CSF 1 cells/uL (0-5)
[2022-05-06 15:14] LABS: Volume,CSF 10 mL
[2022-05-06 15:15] LABS: Appearance,CSF Clear (Clear); Red Blood Cell,CSF 0 cells/uL (0); Volume,CSF 10 mL; White Blood Cell,CSF 0 cells/uL (0-5)
[2022-05-06 16:00] LABS: Folate 8.96 ng/mL
[2022-05-06 16:02] LABS: Chol/HDL Ratio 4.3 (1-3.5); HDL Cholesterol 59 mg/dl (40-60)
[2022-05-06 17:58] LABS: Mononuclear WBCs,CSF 0 %; Polynuclear WBCs,CSF 0 %
[2022-05-10 19:08] LABS: Vitamin B1 141.3 nmol/L (66.5-200.0)
[2022-05-12 18:39] LABS: Methylmalonic Acid 223 nmol/L (0-378)
[2022-05-15 14:51] LABS: Vitamin E Alpha Tocopherol 12.6 mg/L (5.9-19.4); Vitamin E Gamma Tocopherol 1.4 mg/L (0.7-4.9)
[2022-05-16 18:08] LABS: Vitamin A 47.8 ug/dL (18.9-57.3)
[2022-06-04 22:58] LABS: Antinuclear Antibodies (ANA) Negative
== END | disposition home or self-care (01) ==
PROVIDERS: Nurse Practitioner Family; PCP Internal Medicine Adolescent Medicine; Visit Provider Anesthesiology
DX: Z01.818 Encounter for other preprocedural examination (principal); H47.10 Unspecified papilledema; R46.89 Other symptoms and signs involving appearance and behavior; R51.9 Headache, unspecified; E55.9 Vitamin D deficiency, unspecified
CPT/HCPCS: 36415; 80053; 80061; 81025; 82131; 82306; 82728; 82746; 82945; 83036; 83540; 83550; 84155; 84425; 84446; 84590; 85025; 86038; 87205; 89051

== ENCOUNTER → 2022-05-09 15:56 | Outpatient (CLI) | payer OTHER, SELFPAY ==
--- NOTE | 2022-05-09 15:56 | MR_ITS ---
PROCEDURE INFORMATION: Exam: MRA Head Without and With Contrast, Venography Exam date and time: 05/09/2022 4:35 PM Age: 36 years old Clinical indication: Headache; Additional info: Papilledema. Constant migraine headache. Increased intercranial pressure. 30ml prohance given. TECHNIQUE: Imaging protocol: Magnetic resonance angiography of the head without and with contrast. Angiographic sequences such as [id number] (TOF) or Time-resolved contrast techniques were performed. Exam focused on the veins. Contrast material: PROHANCE; Contrast volume: 30 ml; Contrast route: IV; COMPARISON: AGHEADWO MR angio head wo con 02/12/2018 8:52 AM FINDINGS: Superior sagittal sinus: Patent. Straight sinus: Patent. Transverse sinuses: Patent. Sigmoid sinuses: Patent. Internal jugular veins: Visualized segment patent. IMPRESSION: No venous thrombus.
== END ==
PROVIDERS: PCP Internal Medicine Adolescent Medicine; Visit Provider Nurse Practitioner Family
DX: H47.10 Unspecified papilledema (principal); R46.89 Other symptoms and signs involving appearance and behavior; R51.9 Headache, unspecified
CPT/HCPCS: 70546; A9576

== ENCOUNTER → 2022-06-03 15:57 | Outpatient (CLI) | payer OTHER, SELFPAY ==
[2022-06-03 18:38] LABS: Alanine Aminotransferase 16 U/L (12-78); Albumin Level 4.3 g/dl (3.5-5.0); Albumin/Globulin Ratio 1.7 (1.1-1.8); Alkaline Phosphatase 106 U/L (38-126); Aspartate Amino Transferase 20 U/L (14-36); Bilirubin,Total 0.3 mg/dl (0.2-1.3); Blood Urea Nitrogen 16 mg/dl (7-17); Calcium 9.6 mg/dl (8.4-10.2); Carbon Dioxide 27 mmol/L (22.0-30.0); Chloride 105 mmol/L (98-107); Estimated Glomerular Filt Rate 70 ml/min (>60); GFR (African American) 85 ML/MIN (>60); Globulin 2.6 g/dL (1.3-3.2); Glucose 89 mg/dl (74-100); Sodium 138 mmol/L (136-145); Total Protein,Serum 6.9 g/dl (6.3-8.2)
[2022-06-03 18:53] LABS: 25-OH Vitamin D, Total 15.5 ng/mL (30-100)
[2022-06-03 19:08] LABS: Thyroid Stimulating Hormone 4.49 uIU/mL (0.465-4.68)
[2022-06-03 19:27] LABS: Vitamin B12 383 pg/mL (239-931)
[2022-06-03 20:52] LABS: Basophils % 0.5 % (0.1-2.0); Eosinophils # 0.2 K/mm3 (0.0-0.4); Eosinophils % 2.5 % (0.1-12.0); Hematocrit 39.2 % (37.0-47.0); Hemoglobin 13.1 g/dL (12.2-16.2); Lymphocytes # 1.8 K/mm3 (0.7-4.5); Lymphocytes % 21.8 % (10-50); Mean Corpuscular HGB Conc 33.3 g/dL (31.8-35.4); Mean Corpuscular Hemoglobin 30.7 pg (27.0-31.2); Mean Corpuscular Volume 92.3 fl (81-99); Monocytes # 0.4 K/mm3 (0.1-1.0); Monocytes % 5.1 % (1.7-9.3); Neutrophils # 5.7 K/mm3 (1.8-7.8); Neutrophils % 70.1 % (37.0-80.0); Platelet Count 247 K/mm3 (142-424); Red Blood Count 4.25 M/mm3 (4.20-5.40); White Blood Count 8.2 K/mm3 (4.8-10.8)
== END ==
PROVIDERS: PCP Nurse Practitioner Family; Visit Provider Nurse Practitioner Family
DX: R53.83 Other fatigue (principal); N92.0 Excessive and frequent menstruation with regular cycle
CPT/HCPCS: 36415; 80053; 82306; 82607; 84443; 85025

== ENCOUNTER → 2022-06-14 19:53 | Outpatient (CLI) | payer OTHER, SELFPAY | PROVIDERS: PCP Internal Medicine Adolescent Medicine; Visit Provider Nurse Practitioner Family | DX: G47.30 Sleep apnea, unspecified (principal); G47.00 Insomnia, unspecified; R51.9 Headache, unspecified | CPT/HCPCS: 95811 ==

== ENCOUNTER → 2022-06-30 11:00 | Outpatient (CLI) | payer OTHER, SELFPAY ==
[2022-06-30 11:52] LABS: Basophils # 0.1 K/mm3 (0-0.2); Eosinophils # 0.1 K/mm3 (0.0-0.4); Eosinophils % 2.2 % (0.1-12.0); Hematocrit 38.7 % (37.0-47.0); Hemoglobin 12.4 g/dL (12.2-16.2); Lymphocytes # 1.5 K/mm3 (0.7-4.5); Lymphocytes % 23.1 % (10-50); Mean Corpuscular Hemoglobin 30.9 pg (27.0-31.2); Mean Corpuscular Volume 96.4 fl (81-99); Mean Platelet Volume 9.3 fl (7.4-10.4); Monocytes # 0.3 K/mm3 (0.1-1.0); Monocytes % 3.9 % (1.7-9.3); Neutrophils # 4.6 K/mm3 (1.8-7.8); Neutrophils % 69.8 % (37.0-80.0); Platelet Count 243 K/mm3 (142-424); Red Blood Count 4.01 M/mm3 (4.20-5.40); Red Cell Distribution Width 12.9 % (11.5-17.5); White Blood Count 6.6 K/mm3 (4.8-10.8)
[2022-06-30 12:15] LABS: Alanine Aminotransferase 10 U/L (12-78); Albumin Level 4.2 g/dl (3.5-5.0); Albumin/Globulin Ratio 1.8 (1.1-1.8); Alkaline Phosphatase 80 U/L (38-126); Anion Gap 11.1 mEq/L (5-15); Aspartate Amino Transferase 17 U/L (14-36); Bilirubin,Total 0.2 mg/dl (0.2-1.3); Blood Urea Nitrogen 19 mg/dl (7-17); Calcium 8.6 mg/dl (8.4-10.2); Carbon Dioxide 28 mmol/L (22.0-30.0); Chloride 104 mmol/L (98-107); Estimated Glomerular Filt Rate 70 ml/min (>60); GFR (African American) 84 ML/MIN (>60); Globulin 2.4 g/dL (1.3-3.2); Glucose 88 mg/dl (74-100); Potassium 4.1 mmoL/L (3.5-5.1); Sodium 139 mmol/L (136-145); Total Protein,Serum 6.6 g/dl (6.3-8.2)
[2022-06-30 12:38] LABS: HCG,Quantitative < 2 mIU/ml (0-5.42)
== END ==
PROVIDERS: PCP Internal Medicine Adolescent Medicine; Visit Provider Nurse Practitioner Obstetrics & Gynecology
DX: N92.0 Excessive and frequent menstruation with regular cycle (principal)
CPT/HCPCS: 36415; 80053; 84702; 85025

== ENCOUNTER 2022-07-04 07:00 | Day surgery (SDC) | payer OTHER, SELFPAY ==
[2022-06-30 09:22] VITALS: BMI 51.8
[2022-07-04] VITALS (11 sets, daily range): BP systolic 114–155; BP diastolic 61–94; PULSE 47–61; RESP 12–18; TEMP 36.1–36.7; O2SAT 93–100
--- NOTE | 2022-07-04 07:57 | P.PN_ITS ---
[facility] Disclaimer: The information contained in this section may have been updated after the patient was seen, as this information can be updated by other users. 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 Allergies Anxiety Depression History of anemia History of COVID-19 Hypothyroid Irritable bowel syndrome (IBS) Migraine Normal esophagogastroduodenoscopy (EGD) Rectal tear rectal tear repair Sleep apnea Urinary tract infection Yeast infection of the skin groin area Surgical History H/O dilation and curettage x2 H/O gastric sleeve H/O LEEP History of x2 History of cystoscopy x2 History of incision and drainage abdomen History of salpingectomy History of surgery hematoma drainage 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 Other Family history of cancer Family history of hyperlipidemia Family history of hypertension Family history of myocardial infarction 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 Smoking Status: Former smoker years smoked: 5 smoking status stop date: 2000 second hand exposure: No alcohol intake: never counseling provided: none substance use type: denies use current occupational status: employed Travel in the last 8 weeks: None household members: spouse and family housing: house lives independently: Yes marital status: number of children: 9 education level: high school caffeine: Yes special lanie needs: No agree to transfusion: No do you feel safe at home: Yes victim of physical abuse: No victim of emotional abuse: No victim of sexual abuse: No would you like helpful sources: No [facility] Anesthesia Checklist Patient Identification Patient Identification: Verbal (Name & ) Structural Data Admitted From: Home Planned Operative Procedure/s: d/c,hyst Consent for Planned Operative Procedure(s) Verified: Yes Additional verifications Anesthesia Reactions: Yes (N/V) Hx Blood Transfusions: Yes Blood Transfusion Reaction: No Airway Assessment C-Spine Mobility Assessed: Yes TMJ Mobility Assessed: Yes Dentition: Poor Dentition Neurological Assessment Level of Consciousness: Awake, Alert and Appropriate Anesthesia Plan Anesthesia Risk discussed: Yes Anesthesia Plan: Verified ASA Class: III Anesthesia Type: General Preoperative Comments Pre-Operative Comments: nausea w anestheia=scope patch
--- NOTE | 2022-07-04 09:14 | P.OP_ITS ---
Date of procedure: 07/04/22 Pre-op Diagnosis:: Menorrhagia Post-op Diagnosis:: Menorrhagia Procedure performed:: Hysteroscopy, dilation curettage, NovaSure ablation Surgeon:: Cody Rausch MD INDUSTRIAL ENGINEERING TECHNICIAN:: Hari Cherry Anesthesia: LMA Estimated blood loss (mL): 50 Clinical Note:: She is a 37-year-old lady who complains of extremely heavy periods. She has tried IUDs as well as other forms of control and none of these have helped with her heavy periods. As result of that she is offered hysteroscopy, D&C and NovaSure ablation. Operative findings:: She had an anteverted bulky uterus that sounded to 10 cm. The width was 4.6 cm and the length of the endometrial cavity was 6.5 cm. The endometrium appeared normal. There were no polyps. Operative note:: She was taken to the operating room where LMA anesthesia was found be adequate. She was prepped and draped in the normal sterile fashion in the lithotomy position. A weighted speculum was placed in the vagina and the anterior lip of the cervix was grasped with a tenaculum. The cervix was then dilated to approximately 6 mm. I then inserted a hysteroscope into the uterine cavity and the findings were as previously dictated. I then performed a gentle curettage with a medium curette. I then sounded the uterus and determine the length of the uterus. I then inserted the NovaSure device and determine the width of the endometrial cavity. The length of the endometrial cavity was 6.5 cm and the width was 4.6 cm. This was placed into the NovaSure device. I then ran the device through its program. I further inspected the endometrial cavity and was found to be completely charred. I then injected 30 cc of 0.5% ropivacaine at the 3:00, 5:00, 7:00, and 9:00 positions of the cervix. She tolerated procedure well and was taken to the recovery room in excellent condition. All sponge and instrument counts were correct. The estimated blood loss was less than 50 cc. Condition: stable Disposition: PACU Specimens:: Endometrial curettings Complications:: None
--- NOTE | 2022-07-04 09:16 | EXP.ANES.CKL ---
[facility] Disclaimer: The information contained in this section may have been updated after the patient was seen, as this information can be updated by other users. 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 Allergies Anxiety Depression History of anemia History of COVID-19 Hypothyroid Irritable bowel syndrome (IBS) Migraine Normal esophagogastroduodenoscopy (EGD) Rectal tear rectal tear repair Sleep apnea Urinary tract infection Yeast infection of the skin groin area Surgical History H/O dilation and curettage x2 H/O gastric sleeve H/O LEEP History of x2 History of cystoscopy x2 History of incision and drainage abdomen History of salpingectomy History of surgery hematoma drainage 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 Other Family history of cancer Family history of hyperlipidemia Family history of hypertension Family history of myocardial infarction 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 Smoking Status: Former smoker years smoked: 5 smoking status stop date: 2000 second hand exposure: No alcohol intake: never counseling provided: none substance use type: denies use current occupational status: employed Travel in the last 8 weeks: None household members: spouse and family housing: house lives independently: Yes marital status: number of children: 9 education level: high school caffeine: Yes special lanie needs: No agree to transfusion: No do you feel safe at home: Yes victim of physical abuse: No victim of emotional abuse: No victim of sexual abuse: No would you like helpful sources: No [facility] Anesthesia Checklist Patient Identification Patient Identification: Arm Band and Verbal (Name & ) Structural Data Admitted From: Home Planned Operative Procedure/s: Hysteroscopy D&C Consent for Planned Operative Procedure(s) Verified: Yes Verified Documents: Surgical Consent NPO Status Verified Time NPO: 00:00 Additional verifications Anesthesia Reactions: Yes (N/V) Hx Blood Transfusions: Yes Blood Transfusion Reaction: No Airway Assessment C-Spine Mobility Assessed: Yes TMJ Mobility Assessed: Yes Dentition: Good Dentition Neurological Assessment Level of Consciousness: Awake, Alert and Appropriate Anesthesia Plan Anesthesia Risk discussed: Yes ASA Class: III Anesthesia Type: General
--- NOTE | 2022-07-04 09:17 | EXP.ANES.I ---
[facility] Anesthesia Record Part I Anesthesia Record I Intake, IV Amount: 500 Estimated blood loss (mL): 25 Urine output (mL): 0 Blood Pressure: 115/73 SaO2: 93 Pulse Rate: 55 Respiratory Rate: 12 Temperature: 98.1 F Patient is:: Drowsy Stable to PACU at:: 09:45
--- NOTE | 2022-07-04 14:48 | EXP.ANES.II ---
[facility] Anesthesia Record Part II Anesthesia Record Part II Discharge Time: 09:58 Destination: Surgical Day Care (OP Surgery) PACU nurse assessment reviewed?: Yes Patient Condition:: Good Anesthesia Complications:: None Swallowing reflex intact?: Yes Cyanosis?: No Blood Pressure: 114/72 Pulse Rate: 58 Temperature: 97.2 F Mental Status: Alert & Oriented Pain level:: 0 Nausea and/or vomitting:: None Intake, IV Amount: 0
== END 2022-07-04 10:41 | disposition home or self-care (01) ==
PROVIDERS: PCP Internal Medicine Adolescent Medicine; Visit Provider Nurse Practitioner Obstetrics & Gynecology
PROC: 0U5B8ZZ Destruction of Endometrium, Via Natural or Artificial Opening Endoscopic (ICD-10-PCS; CPT 58563; principal; 2022-07-04 08:45)
DX: N92.0 Excessive and frequent menstruation with regular cycle (principal); Z79.899 Other long term (current) drug therapy
CPT/HCPCS: 58563; 96374; J2405

== ENCOUNTER → 2022-07-08 11:52 | Day surgery (SDC) | payer OTHER, SELFPAY ==
[2022-07-08 12:31] VITALS: BP 138/71; PULSE 65; RESP 22; TEMP 36.6; O2SAT 99
[2022-07-08 13:55] VITALS: BP 127/64; PULSE 100; RESP 20; O2SAT 98
[2022-07-08 13:56] VITALS: BP 115/66; PULSE 56; RESP 18; TEMP 36.9; O2SAT 100
[2022-07-08 14:11] VITALS: BP 118/61; PULSE 54; RESP 18; TEMP 36.9; O2SAT 100
--- NOTE | 2022-07-08 14:18 | PC.NURSE ---
7347- received report from Yadira, patient tolerated procedure well, arrived via stretcher in supine position talking to nurses. Denies pain, VSS , Bandaid at puncture site. CDI. Father at BS
[2022-07-08 14:26] VITALS: BP 116/63; PULSE 71; RESP 18; TEMP 36.9; O2SAT 98
--- NOTE | 2022-07-08 14:30 | PC.NURSE ---
1430- patient supine c/o headache- stated it was a 2 in preop and a 4-5/10 now. Raised HOB to 35* patient drank pepsi for caffeine to help with headache. Bandaid is CDI. Warm blankets and nettie paws applied when brought to Postop and pt stated she is comfortable with then still on.
--- NOTE | 2022-07-08 14:40 | EXP.PAIN.PRO ---
Procedure Date: 07/08/22 Time: 14:41 Anesthesiologist:: Adriel Ordaz MD Complications:: None Pre-procedure Diagnosis:: Papilledema pseudotumor cerebri, anxiety and obesity Post-procedure Diagnosis:: Same Indications for Procedure:: Patient is a pleasant 37-year-old white female who we have been doing diagnostic and therapeutic lumbar punctures on for papilledema and pseudotumor cerebri. We are asked by Dr. Healy to repeat lumbar puncture to obtain opening and closing pressures and fluid for indicated studies. Procedure Details:: Lumbar puncture Informed consent was obtained the risk and benefits of the procedure were explained to the patient. Patient was taken the procedure room. She was placed in the left lateral decubitus position. The patient did receive sedation for this procedure. The skin and subtenons tissues were anesthetized using lidocaine. A long 18-gauge spinal needle was inserted and advanced into the L4-5 interspace until clear CSF fluid drained. Opening pressures were found to be 20 cm of water. We obtained approximately 20 MLS of clear CSF placed into each of 4 tubes. Closing pressures were found to be 14 cm of water. The needle was removed a Band-Aid was placed the patient was taken recovery in stable condition. Patient tolerated the procedure well with no complications. Plan and Disposition:: We will follow-up with this patient on a as needed basis. We did pediatric genetic counselor her on conservative treatments to prevent post dural puncture headache.
[2022-07-08 14:41] VITALS: BP 119/72; PULSE 65; RESP 18; TEMP 36.9; O2SAT 98
[2022-07-08 14:48] LABS: Glucose,CSF 45 mg/dl (40-70)
[2022-07-08 14:57] LABS: Appearance,CSF Clear (Clear); Volume,CSF 23 mL
[2022-07-08 14:58] LABS: Red Blood Cell,CSF 17 cells/uL (0); White Blood Cell,CSF 1 cells/uL (0-5)
[2022-07-08 15:09] LABS: Mononuclear WBCs,CSF 0 %
[2022-07-08 15:10] LABS: Polynuclear WBCs,CSF 1 %
== END | disposition home or self-care (01) ==
PROVIDERS: PCP Internal Medicine Adolescent Medicine; Referring Provider Specialist; Visit Provider Anesthesiology
DX: H47.10 Unspecified papilledema (principal); G93.2 Benign intracranial hypertension; Z79.899 Other long term (current) drug therapy
CPT/HCPCS: 62329; 82945; 84155; 87205; 89051

== ENCOUNTER 2022-07-10 08:14 | Emergency (ER) | payer OTHER, SELFPAY ==
[2022-07-10] VITALS (18 sets, daily range): BP systolic 109–140; BP diastolic 60–82; PULSE 50–69; RESP 17–19; TEMP 36.7–36.9; O2SAT 95–99; BMI 51.7
[2022-07-10 08:54] LABS: Basophils # 0.1 K/mm3 (0-0.2); Basophils % 1.1 % (0.1-2.0); Eosinophils # 0.2 K/mm3 (0.0-0.4); Eosinophils % 2.4 % (0.1-12.0); Hematocrit 39.1 % (37.0-47.0); Lymphocytes # 1.5 K/mm3 (0.7-4.5); Mean Corpuscular HGB Conc 33.2 g/dL (31.8-35.4); Mean Corpuscular Hemoglobin 30.6 pg (27.0-31.2); Mean Corpuscular Volume 92.1 fl (81-99); Mean Platelet Volume 9.4 fl (7.4-10.4); Monocytes # 0.4 K/mm3 (0.1-1.0); Monocytes % 5.4 % (1.7-9.3); Neutrophils # 5.6 K/mm3 (1.8-7.8); Neutrophils % 72.1 % (37.0-80.0); Platelet Count 164 K/mm3 (142-424); Red Blood Count 4.24 M/mm3 (4.20-5.40); White Blood Count 7.8 K/mm3 (4.8-10.8)
--- NOTE | 2022-07-10 08:55 | HMH.EDHA ---
Discharge Plan Disposition Patient Disposition: Home, Self-Care Prescriptions Prescriptions: No Action nitrofurantoin macrocrystal 50 mg capsule 50 mg PO DAILY Rx Instructions: must administer with a meal/food oxybutynin chloride 10 mg tablet extended release 24hr 10 tab PO DAILY doxepin 25 mg capsule 25 mg PO QHS PRN (Reason: sleep) Qty: 30 1RF Vraylar 1.5 mg capsule 1.5 mg PO DAILY Qty: 30 1RF vilazodone [Viibryd] 40 mg tablet 40 mg PO DAILY Qty: 30 1RF Rx Instructions: must administer with a meal/food cyanocobalamin (vitamin B-12) 1,000 mcg/mL solution 1,000 mcg IM .COMPLEX Rx Instructions: 1,000 mcg intramuscularly every 2 weeks; Aimovig Autoinjector 140 mg/mL auto-injector 140 mg SQ QMONTH Qty: 1 5RF Ubrelvy 100 mg tablet 100 mg PO ONCE PRN (Reason: Intractable migraine) Qty: 16 5RF Rx Instructions: Take 100 mg at onset of headache. May repeat 100 mg after 2 hours. Max dose 200 mg in 24 hours. acetazolamide 250 mg tablet 250 mg PO BID Qty: 60 1RF ergocalciferol (vitamin D2) 1,000 unit Capsule 13,000 unit PO WEEKLY oxycodone-acetaminophen [Percocet] 5-325 mg Tablet 1 tab PO Q6HP PRN (Reason: severe pain.) Qty: 12 0RF Referrals Follow up/Referrals: Otto Jamil MD [Primary Care Provider] - See instructions Clinical Impressions Clinical Impression: Headache Discharge ED Provider: Luke Bermudez Headache HPI General Chief Complaint: Headache Stated Complaint: pain in neck, spine Time Seen by Provider: 07/10/22 09:59 History of Present Illness HPI Narrative: Patient presents for evaluation of headache. She says she has a history of migraines, pseudotumor cerebri, papilledema. Patient had a lumbar puncture 2 days ago and developed headache symptoms after the lumbar puncture that were mild, but these are gradually worsened over the weekend and are now severe. She attempted rehydration at home after contacting her care provider, but headache has continued to worsen and she presents today after discussing her symptoms with her care provider that performed her lumbar puncture Dr. Ordaz. Related Data Home Medications Medication Instructions Recorded Confirmed nitrofurantoin macrocrystal 50 mg 50 mg PO DAILY bladder 04/07/22 07/08/22 capsule oxybutynin chloride 10 mg 10 tab PO DAILY bladder 04/07/22 07/08/22 tablet,extended release 24 hr cyanocobalamin (vitamin B-12) 1,000 mcg IM .COMPLEX Supplement 06/06/22 07/08/22 1,000 mcg/mL injection solution ergocalciferol (vitamin D2) 1,000 13,000 unit PO WEEKLY Supplement 06/30/22 07/08/22 unit capsule Previous Rx's Medication Instructions Recorded erenumab-aooe 140 mg/mL 140 mg SQ QMONTH intractable 06/06/22 subcutaneous auto-injector migraine prevention #1 mL (Aimovig Autoinjector) cariprazine 1.5 mg capsule 1.5 mg PO DAILY Depression #30 caps 06/07/22 (Vraylar) doxepin 25 mg capsule 25 mg PO QHS PRN sleep #30 caps 06/07/22 vilazodone 40 mg tablet (Viibryd) 40 mg PO DAILY Depression #30 tabs 06/07/22 acetazolamide 250 mg tablet 250 mg PO BID Papilledema #60 tabs 06/30/22 ubrogepant 100 mg tablet (Ubrelvy) 100 mg PO ONCE PRN Intractable 06/30/22 migraine #16 tabs oxycodone-acetaminophen 5 mg-325 1 tab PO Q6HP PRN severe pain. #12 07/04/22 mg tablet (Percocet) tabs Allergies Allergy/AdvReac Type Severity Reaction Status Date / Time Penicillins [PENICILLINS] Allergy Severe Swelling Verified 07/08/22 12:24 of Lip/Tongue/Throat ethinyl estradiol Allergy Unknown swelling Verified 07/08/22 12:24 [From NUVARING] legs etonogestrel [From NUVARING] Allergy Unknown swelling Verified 07/08/22 12:24 legs fluconazole [FLUCONAZOLE] Allergy Unknown Rash Verified 07/08/22 12:24 guaifenesin [From MUCINEX] Allergy Unknown Rash Verified 07/08/22 12:24 Sulfa (Sulfonamide Allergy Unknown Rash Verified 07/08/22 12:24 Antibiotics) [SULFA (
[2022-07-10 09:06] LABS: Chloride 104 mmol/L (98-107); Potassium 3.7 mmoL/L (3.5-5.1); Sodium 140 mmol/L (136-145)
[2022-07-10 09:09] LABS: Anion Gap 13.7 mEq/L (5-15); Blood Urea Nitrogen 12 mg/dl (7-17); Calcium 8.2 mg/dl (8.4-10.2); Carbon Dioxide 26 mmol/L (22.0-30.0); Creatinine Clearance Estimated 113 mL/min (50-200); Estimated Glomerular Filt Rate 93 ml/min (>60); GFR (African American) 113 ML/MIN (>60); Glucose 109 mg/dl (74-100)
--- NOTE | 2022-07-10 09:31 | PC.NURSE ---
has been paged
--- NOTE | 2022-07-10 09:33 | PC.NURSE ---
on the phone with
--- NOTE | 2022-07-10 09:36 | PC.NURSE ---
Anesthesiologist has been paged
--- NOTE | 2022-07-10 09:38 | PC.NURSE ---
er talking to karel anesthesiologist at this time
--- NOTE | 2022-07-10 09:45 | PC.NURSE ---
Anesthesiologist has been paged again
--- NOTE | 2022-07-10 09:46 | PC.NURSE ---
ER TALKING TO ANESTHESIOLOGIST TO UPDATE HIM ABOUT WHAT PT SAID.
--- NOTE | 2022-07-10 09:51 | PC.NURSE ---
Called Elier in Pharmacy to mix medication per Solomon. Solomon would like for pt to have 20mcg/kg of neostigmine and 10mcg/kg of atropine mixed in 100mL bag of saline ran over 15 minutes.
--- NOTE | 2022-07-10 10:16 | PC.NURSE ---
Elier called about brad and asked if we could give fioricet instead. Dr Bermudez is agreeable. Verbal consent given over the phone. Elier will bring shortly to administer to pt.
--- NOTE | 2022-07-10 11:14 | PC.NURSE ---
Checked on pt. She states she feels a little better. Pain when lying down is 7/20 and a 9/10 when she sits up. aware.
--- NOTE | 2022-07-10 11:21 | PC.NURSE ---
Anesthesiologist has been paged again
--- NOTE | 2022-07-10 16:29 | PC.NURSE ---
called from ED physician with patient c/o headache post procedure form Dr. Ordaz. Patient interviewed and meets criteria for EPB. Patient informed of risks and benefits and wants to proceed. Placed in sitting position. Patient administered 50mcg of fentanyl and 2 mg of versed. Sterile prep with betadine noted. 5 ml 1% lidocaine infiltrated. 318g Tuhuoy inserted with ZACHARY at 8cm. @0ml of autogolous blood injected without issue. Patient positioned supine with post procedure orders given to ED nursing staff.
--- NOTE | 2022-07-10 22:07 | HMH.EDGENADL ---
Discharge Plan Disposition Patient Disposition: Home, Self-Care Condition: Good Prescriptions Prescriptions: No Action nitrofurantoin macrocrystal 50 mg capsule 50 mg PO DAILY Rx Instructions: must administer with a meal/food oxybutynin chloride 10 mg tablet extended release 24hr 10 tab PO DAILY doxepin 25 mg capsule 25 mg PO QHS PRN (Reason: sleep) Qty: 30 1RF Vraylar 1.5 mg capsule 1.5 mg PO DAILY Qty: 30 1RF vilazodone [Viibryd] 40 mg tablet 40 mg PO DAILY Qty: 30 1RF Rx Instructions: must administer with a meal/food cyanocobalamin (vitamin B-12) 1,000 mcg/mL solution 1,000 mcg IM .COMPLEX Rx Instructions: 1,000 mcg intramuscularly every 2 weeks; Aimovig Autoinjector 140 mg/mL auto-injector 140 mg SQ QMONTH Qty: 1 5RF Ubrelvy 100 mg tablet 100 mg PO ONCE PRN (Reason: Intractable migraine) Qty: 16 5RF Rx Instructions: Take 100 mg at onset of headache. May repeat 100 mg after 2 hours. Max dose 200 mg in 24 hours. acetazolamide 250 mg tablet 250 mg PO BID Qty: 60 1RF ergocalciferol (vitamin D2) 1,000 unit Capsule 13,000 unit PO WEEKLY oxycodone-acetaminophen [Percocet] 5-325 mg Tablet 1 tab PO Q6HP PRN (Reason: severe pain.) Qty: 12 0RF Referrals Follow up/Referrals: Otto Jamil MD [Primary Care Provider] - See instructions Clinical Impressions Clinical Impression: Headache Discharge ED Provider: Luke Bermudez General Adult [facility] General Chief complaint: Headache Stated complaint: pain in neck, spine Time Seen by Provider: 07/10/22 09:08 Mode of Arrival: Ambulatory Source of Information: Patient Limitations: No Limitations Description of Symptoms (Recalled from ER Triage Doc. by RN): c/o neck, shoulder and head pain after a lumbar puncture on Monday. Related Data Home Medications Medication Instructions Recorded Confirmed nitrofurantoin macrocrystal 50 mg 50 mg PO DAILY bladder 04/07/22 07/08/22 capsule oxybutynin chloride 10 mg 10 tab PO DAILY bladder 04/07/22 07/08/22 tablet,extended release 24 hr cyanocobalamin (vitamin B-12) 1,000 mcg IM .COMPLEX Supplement 06/06/22 07/08/22 1,000 mcg/mL injection solution ergocalciferol (vitamin D2) 1,000 13,000 unit PO WEEKLY Supplement 06/30/22 07/08/22 unit capsule Previous Rx's Medication Instructions Recorded erenumab-aooe 140 mg/mL 140 mg SQ QMONTH intractable 06/06/22 subcutaneous auto-injector migraine prevention #1 mL (Aimovig Autoinjector) cariprazine 1.5 mg capsule 1.5 mg PO DAILY Depression #30 caps 06/07/22 (Vraylar) doxepin 25 mg capsule 25 mg PO QHS PRN sleep #30 caps 06/07/22 vilazodone 40 mg tablet (Viibryd) 40 mg PO DAILY Depression #30 tabs 06/07/22 acetazolamide 250 mg tablet 250 mg PO BID Papilledema #60 tabs 06/30/22 ubrogepant 100 mg tablet (Ubrelvy) 100 mg PO ONCE PRN Intractable 06/30/22 migraine #16 tabs oxycodone-acetaminophen 5 mg-325 1 tab PO Q6HP PRN severe pain. #12 07/04/22 mg tablet (Percocet) tabs Allergies Allergy/AdvReac Type Severity Reaction Status Date / Time Penicillins [PENICILLINS] Allergy Severe Swelling Verified 07/08/22 12:24 of Lip/Tongue/Throat ethinyl estradiol Allergy Unknown swelling Verified 07/08/22 12:24 [From NUVARING] legs etonogestrel [From NUVARING] Allergy Unknown swelling Verified 07/08/22 12:24 legs fluconazole [FLUCONAZOLE] Allergy Unknown Rash Verified 07/08/22 12:24 guaifenesin [From MUCINEX] Allergy Unknown Rash Verified 07/08/22 12:24 Sulfa (Sulfonamide Allergy Unknown Rash Verified 07/08/22 12:24 Antibiotics) [SULFA (SULFONAMIDE ANTIBIOTICS)] sulfamethoxazole Allergy Rash Verified 07/08/22 12:24 [From Bactrim] trimethoprim [From Bactrim] Allergy Rash Verified 07/08/22 12:24 PFSH PFSH Disclaimer: The information contained in this section may have been updated after the patient was seen, as this information can be updated
== END 2022-07-10 13:58 | disposition home or self-care (01) ==
PROVIDERS: Emergency Provider Emergency Medicine; PCP Internal Medicine Adolescent Medicine
DX: M54.2 Cervicalgia (principal); F41.9 Anxiety disorder, unspecified; F32.A Depression, unspecified; E03.9 Hypothyroidism, unspecified; Z86.16 Personal history of COVID-19; K58.9 Irritable bowel syndrome, unspecified; G43.909 Migraine, unspecified, not intractable, without status migrainosus; Z98.84 Bariatric surgery status; Z90.722 Acquired absence of ovaries, bilateral; Z83.42 Family history of familial hypercholesterolemia; Z82.49 Family history of ischemic heart disease and other diseases of the circulatory system; Z80.9 Family history of malignant neoplasm, unspecified; Z87.891 Personal history of nicotine dependence
CPT/HCPCS: 80048; 85025; 96361; 96374; 96375; 99285

== ENCOUNTER 2022-08-16 17:00 | Outpatient (RCR) | payer OTHER, SELFPAY ==
--- NOTE | 2022-07-26 13:52 | HMH.PTOPEV ---
PT Outpatient Evaluation Rehab PT Outpatient Evaluation Start: 07/26/22 13:34 Freq: Status: Active Protocol: Document 07/26/22 13:35 WILLIE (Rec: 07/26/22 13:52 WILLIE [id number]) E-signed By Yan Stephens, PT Outpatient Therapy Subjective History Subjective History Patient is a 37 year old female presenting to outpatient PT with reports of chronic cervical spine pain with associated cervicogenic headaches. Symptoms of insidious onset starting approx 4 years ago. No recent diagnostics to report. Comorbidities include hx of torticollis, multiple DNC's and gastric sleeve. Chief Complaint Pain,Stiff Symptom Type Throb Symptoms Relieved By Heat,Prescription Meds Symptoms Aggravated By Physical Activity,Lifting Prior Functional Limitations None Current Functional Limitations Reaching,Lifting,Housework, Driving Symptom Description Constant but Variable Level of pain today (0-10) 3 Pain scale - at its best (0-10) 3 Pain scale - at its worst (0-10) 10 Cervical Eval Palpation Cervical Muscles R Suboccipital,L Suboccipital, R CT Junction,L CT Junction,R Upper Trapezius,L Upper Trapezius Cervical/Thoracic Palpation Findings Tenderness Posture Head/C-Spine Posture Sitting Position Excess Extension Head/C-Spine Posture Standing Position Excess Extension Flexibility Deficits Upper Trapezius Muscle Length (R) Moderate Tightness,(L) Moderate Tightness Pectoralis Minor Muscle Length (R) Moderate Tightness,(L) Moderate Tightness Passive Joint Mobility Cervical PIVM Dec: R OA L OA R AA L AA R C2/3 L C2/3 R C3/4 L C3/4 R C4/5 L C4/5 R C5/6 L C5/6 R C6/7 L C6/7 R C7/T1 L C7/T1 AROM Cervical Spine Extension Active Range of 28 Motion (d
== END 2022-08-16 17:05 | disposition home or self-care (01) ==
LOC: PT 17:00
PROVIDERS: PCP Internal Medicine Adolescent Medicine; Visit Provider Nurse Practitioner Family
DX: G43.019 Migraine without aura, intractable, without status migrainosus (principal)
CPT/HCPCS: 20561; 97010; 97014; 97110; 97163; G0283

== ENCOUNTER → 2022-10-29 07:21 | Outpatient (CLI) | payer OTHER, SELFPAY ==
[2022-10-29 09:19] LABS: Basophils % 0.3 % (0.1-2.0); Eosinophils # 0.2 K/mm3 (0.0-0.4); Eosinophils % 3.1 % (0.1-12.0); Hematocrit 40.7 % (37.0-47.0); Hemoglobin 13.3 g/dL (12.2-16.2); Lymphocytes % 18.1 % (10-50); Mean Corpuscular HGB Conc 32.6 g/dL (31.8-35.4); Mean Corpuscular Hemoglobin 30.5 pg (27.0-31.2); Mean Corpuscular Volume 93.5 fl (81-99); Mean Platelet Volume 8.8 fl (7.4-10.4); Monocytes # 0.3 K/mm3 (0.1-1.0); Neutrophils # 4.1 K/mm3 (1.8-7.8); Neutrophils % 72.5 % (37.0-80.0); Platelet Count 208 K/mm3 (142-424); Red Blood Count 4.36 M/mm3 (4.20-5.40); Red Cell Distribution Width 13.4 % (11.5-17.5); White Blood Count 5.7 K/mm3 (4.8-10.8)
[2022-10-29 09:23] LABS: Chloride 104 mmol/L (98-107); Potassium 3.5 mmoL/L (3.5-5.1); Sodium 139 mmol/L (136-145)
[2022-10-29 09:25] LABS: Blood Urea Nitrogen 9 mg/dl (7-17); Estimated Glomerular Filt Rate 80 ml/min (>60); GFR (African American) 97 ML/MIN (>60)
[2022-10-29 09:26] LABS: Alanine Aminotransferase 19 U/L (12-78); Albumin Level 3.8 g/dl (3.5-5.0); Albumin/Globulin Ratio 1.4 (1.1-1.8); Alkaline Phosphatase 97 U/L (38-126); Anion Gap 15.5 mEq/L (5-15); Aspartate Amino Transferase 24 U/L (14-36); Bilirubin,Total 0.5 mg/dl (0.2-1.3); Calcium 8.2 mg/dl (8.4-10.2); Carbon Dioxide 23 mmol/L (22.0-30.0); Cholesterol 214 mg/dl (140-200); Globulin 2.8 g/dL (1.3-3.2); Glucose 91 mg/dl (74-100); Iron 96 ug/dL (37-170); Total Protein,Serum 6.6 g/dl (6.3-8.2); Triglycerides 231 mg/dl (30-150); VLDL Cholesterol 46 mg/dL (0-40)
[2022-10-29 09:27] LABS: HDL Cholesterol 43 mg/dl (40-60)
[2022-10-29 09:38] LABS: Direct LDL Cholesterol 127.79 mg/dL (100-129)
[2022-10-29 09:42] LABS: Total Iron Binding Capacity 262 ug/dL (265-497)
[2022-10-29 09:58] LABS: Thyroid Stimulating Hormone 3.15 uIU/mL (0.465-4.68)
[2022-10-29 10:02] LABS: Ferritin 121 ng/ml (6.24-137)
[2022-10-29 10:35] LABS: Hemoglobin A1C 4.8 % (4.0-6.0)
[2022-10-29 10:42] LABS: Folate 9.48 ng/mL
[2022-10-29 10:54] LABS: Free T4 (Free Thyroxine) 0.62 ng/dl (0.78-2.19)
[2022-10-30 08:13] LABS: Prealbumin 24 mg/dL (14-35)
[2022-11-02 18:07] LABS: Vitamin E Alpha Tocopherol 11.6 mg/L (5.9-19.4); Vitamin E Gamma Tocopherol 1.3 mg/L (0.7-4.9)
[2022-11-02 19:13] LABS: Vitamin B1 156.3 nmol/L (66.5-200.0)
[2022-11-11 20:42] LABS: Methylmalonic Acid 125 nmol/L (0-378)
== END ==
PROVIDERS: PCP Internal Medicine Adolescent Medicine; Visit Provider Physician Assistant
DX: Z90.3 Acquired absence of stomach [part of] (principal); E55.9 Vitamin D deficiency, unspecified
CPT/HCPCS: 36415; 80053; 80061; 82306; 82728; 82746; 83036; 83540; 83550; 83921; 84134; 84425; 84439; 84443; 84446; 84590; 85025

== ENCOUNTER 2022-11-27 09:43 | Emergency (ER) | payer OTHER, SELFPAY ==
[2022-11-27 09:45] VITALS: BP 128/80; PULSE 69; RESP 20; TEMP 36.9; O2SAT 98; BMI 53.3
--- NOTE | 2022-11-27 09:55 | EXP.UTC ---
Discharge Plan Disposition Patient Disposition: Home, Self-Care Condition: Good Prescriptions Prescriptions: New gentamicin 0.3 % drops 2 drp ophthalmic (eye) Q4H 7 Days Qty: 10 0RF Rx Instructions: in both eyes as directed No Action nitrofurantoin macrocrystal 50 mg capsule 50 mg PO DAILY Rx Instructions: must administer with a meal/food rizatriptan 5 mg tablet 5 mg PO Q2H PRN Rx Instructions: do not exceed 6 doses per 24 hrs tolterodine 4 mg capsule,extended release 24hr 4 mg PO DAILY acetazolamide 250 mg tablet 250 mg PO DAILY Aimovig Autoinjector 140 mg/mL auto-injector 140 mg SQ QMONTH Qty: 1 5RF Ubrelvy 100 mg tablet 100 mg PO ONCE PRN (Reason: Intractable migraine) Qty: 16 5RF Rx Instructions: Take 100 mg at onset of headache. May repeat 100 mg after 2 hours. Max dose 200 mg in 24 hours. cyanocobalamin (vitamin B-12) 1,000 mcg/mL solution 1,000 mcg IM .COMPLEX Rx Instructions: 1,000 mcg intramuscularly every 2 weeks; Vraylar 3 mg capsule 3 mg PO DAILY Qty: 30 1RF doxepin 25 mg capsule 25 mg PO QHS PRN (Reason: sleep) Qty: 30 1RF vilazodone [Viibryd] 40 mg tablet 40 mg PO DAILY Qty: 30 1RF Rx Instructions: must administer with a meal/food ergocalciferol (vitamin D2) 1,000 unit Capsule 13,000 unit PO WEEKLY Referrals Follow up/Referrals: Otto Jamil MD [Primary Care Provider] - See instructions Activity Restrictions/Add. Instructions Additional Instructions/Restrictions: Follow up with your Eye Doctor if no improvement or any worsening of symptoms Use drops as directed Clean matting from eyes with warm water and baby shampoo Return if needed Wash hands before and after applying eye drops Clinical Impressions Clinical Impression: Conjunctivitis Instructions Patient Instructions: Conjunctivitis, DI for Conjunctivitis Discharge ED Provider: Angelita Kemp [facility] General Stated complaint: possible pink eye Mode of Arrival: Ambulatory Source of Information: Patient Limitations: No Limitations Time Seen by Provider: 11/27/22 09:55 Description of Symptoms (Recalled from Triage Doc. by RN): PATIENT C/O REDNESS AND DRAINAGE TO BILATERAL EYES SINCE MONDAY HEENT Symptoms (Recalled from RN notes): Yes Resp Symptoms (Recalled from RN notes): No Skin Symptoms (Recalled from RN notes): No MS Symptoms (Recalled from RN notes): No Functional Status (Recalled from RN notes): WNL History of Present Illness Provider Complaint: Patient states one of her children had pink eye last week and then on Monday she started with drainage, redness and matting to both eyes States that she used some of their drops but they havent helped any and today when it wasnt any better she came in to get it checked Related Data Home Medications Medication Instructions Recorded Confirmed nitrofurantoin macrocrystal 50 mg 50 mg PO DAILY bladder 04/07/22 11/10/22 capsule cyanocobalamin (vitamin B-12) 1,000 mcg IM .COMPLEX Supplement 06/06/22 11/10/22 1,000 mcg/mL injection solution ergocalciferol (vitamin D2) 1,000 13,000 unit PO WEEKLY Supplement 06/30/22 11/10/22 unit capsule rizatriptan 5 mg tablet 5 mg PO Q2H PRN 07/21/22 11/10/22 acetazolamide 250 mg tablet 250 mg PO DAILY Papilledema 11/02/22 11/10/22 tolterodine 4 mg capsule,extended 4 mg PO DAILY 11/02/22 11/10/22 release 24 hr Previous Rx's Medication Instructions Recorded erenumab-aooe 140 mg/mL 140 mg SQ QMONTH intractable 11/02/22 subcutaneous auto-injector migraine prevention #1 mL (Aimovig Autoinjector) ubrogepant 100 mg tablet (Ubrelvy) 100 mg PO ONCE PRN Intractable 11/02/22 migraine #16 tabs cariprazine 3 mg capsule (Vraylar) 3 mg PO DAILY #30 caps 11/03/22 doxepin 25 mg capsule 25 mg PO QHS PRN sleep #30 caps 11/03/22 vilazodone 40 mg tablet (Viibryd) 40 mg PO DAILY Depression #30 tabs 11/03/22 gentamicin 0.3 % eye drops 2
[2022-11-27 09:56] VITALS: BP 128/80; PULSE 69; RESP 20; TEMP 36.9; O2SAT 98
== END 2022-11-27 10:09 | disposition home or self-care (01) ==
PROVIDERS: Emergency Provider Nurse Practitioner; PCP Internal Medicine Adolescent Medicine
DX: H10.33 Unspecified acute conjunctivitis, bilateral (principal); E03.9 Hypothyroidism, unspecified; F41.9 Anxiety disorder, unspecified; F32.9 Major depressive disorder, single episode, unspecified; G47.30 Sleep apnea, unspecified
CPT/HCPCS: 99204; 99212; G0463

== ENCOUNTER → 2023-05-28 07:56 | Outpatient (CLI) | payer OTHER, SELFPAY ==
[2023-05-28 08:46] LABS: Basophils % 0.4 % (0.1-2.0); Eosinophils # 0.2 K/mm3 (0.0-0.4); Eosinophils % 2.6 % (0.1-12.0); Hematocrit 38.6 % (37.0-47.0); Hemoglobin 13.1 g/dL (12.2-16.2); Lymphocytes # 1.1 K/mm3 (0.7-4.5); Lymphocytes % 16.7 % (10-50); Mean Corpuscular HGB Conc 33.9 g/dL (31.8-35.4); Mean Corpuscular Hemoglobin 31.5 pg (27.0-31.2); Mean Corpuscular Volume 92.8 fl (81-99); Mean Platelet Volume 7.8 fl (7.4-10.4); Monocytes # 0.3 K/mm3 (0.1-1.0); Monocytes % 4.4 % (1.7-9.3); Neutrophils # 4.8 K/mm3 (1.8-7.8); Neutrophils % 75.9 % (37.0-80.0); Platelet Count 232 K/mm3 (142-424); Red Blood Count 4.16 M/mm3 (4.20-5.40); Red Cell Distribution Width 13.2 % (11.5-17.5); White Blood Count 6.4 K/mm3 (4.8-10.8)
[2023-05-28 09:20] LABS: Alanine Aminotransferase 14 U/L (12-78); Albumin Level 3.8 g/dl (3.5-5.0); Albumin/Globulin Ratio 1.5 (1.1-1.8); Alkaline Phosphatase 101 U/L (38-126); Anion Gap 9.8 mEq/L (5-15); Aspartate Amino Transferase 20 U/L (14-36); Bilirubin,Total 0.4 mg/dl (0.2-1.3); Blood Urea Nitrogen 9 mg/dl (7-17); Calcium 7.8 mg/dl (8.4-10.2); Carbon Dioxide 29 mmol/L (22.0-30.0); Chloride 101 mmol/L (98-107); Chol/HDL Ratio 5.5 (1-3.5); Cholesterol 224 mg/dl (140-200); Estimated Glomerular Filt Rate 80 ml/min (>60); GFR (African American) 97 ML/MIN (>60); Globulin 2.5 g/dL (1.3-3.2); Glucose 88 mg/dl (74-100); HDL Cholesterol 41 mg/dl (40-60); Potassium 3.8 mmoL/L (3.5-5.1); Sodium 136 mmol/L (136-145); Total Protein,Serum 6.3 g/dl (6.3-8.2); Triglycerides 175 mg/dl (30-150); VLDL Cholesterol 35 mg/dL (0-40)
[2023-05-28 09:30] LABS: Direct LDL Cholesterol 150.98 mg/dL (100-129)
[2023-05-28 09:50] LABS: Thyroid Stimulating Hormone 4.17 uIU/mL (0.465-4.68)
[2023-05-28 10:09] LABS: Vitamin B12 486 pg/mL (239-931)
== END ==
PROVIDERS: PCP Internal Medicine Adolescent Medicine; Visit Provider Nurse Practitioner Family
DX: Z00.00 Encounter for general adult medical examination without abnormal findings (principal); E03.9 Hypothyroidism, unspecified; E53.8 Deficiency of other specified B group vitamins; E55.9 Vitamin D deficiency, unspecified
CPT/HCPCS: 36415; 80053; 80061; 82306; 82607; 84443; 85025

== ENCOUNTER 2023-12-22 16:40 | Emergency (ER) | payer OTHER, SELFPAY ==
--- NOTE | 2023-12-22 16:46 | EXP.UTC ---
Discharge Plan Disposition Patient Disposition: Home, Self-Care Condition: Good Prescriptions Prescriptions: New ofloxacin 0.3 % drops 10 drp otic (ear) BID 7 Days Qty: 10 0RF No Action nitrofurantoin macrocrystal 50 mg capsule 50 mg PO DAILY Rx Instructions: must administer with a meal/food tolterodine 4 mg capsule,extended release 24hr 4 mg PO DAILY cyanocobalamin (vitamin B-12) 1,000 mcg/mL solution 1,000 mcg IM .COMPLEX Rx Instructions: 1,000 mcg intramuscularly every 2 weeks; Aimovig Autoinjector 140 mg/mL auto-injector 140 mg SQ QMONTH Qty: 1 5RF Ubrelvy 100 mg tablet 100 mg PO ONCE PRN (Reason: Intractable migraine) Qty: 16 5RF Rx Instructions: Take 100 mg at onset of headache. May repeat 100 mg after 2 hours. Max dose 200 mg in 24 hours. Vraylar 3 mg capsule 3 mg PO DAILY Qty: 30 1RF Rx Instructions: 3 mg orally daily; vilazodone 40 mg tablet See Rx Instructions .ROUTE .COMPLEX Qty: 30 0RF Dose Instruction: TAKE 1 TABLET BY MOUTH ONCE DAILY FOR DEPRESSION; MUST ADMINISTER WITH A MEAL/FOOD Rx Instructions: TAKE 1 TABLET BY MOUTH ONCE DAILY FOR DEPRESSION; MUST ADMINISTER WITH A MEAL/FOOD clonazepam [Klonopin] 0.5 mg tablet 0.5 mg PO BID PRN (Reason: anxiety) Qty: 30 0RF ergocalciferol (vitamin D2) 1,000 unit Capsule 13,000 unit PO WEEKLY Referrals Follow up/Referrals: Otto Jamil MD [Primary Care Provider] - See instructions Clinical Impressions Clinical Impression: Otitis externa Instructions Patient Instructions: DI for Otitis Externa Discharge ED Provider: Lluvia Valentin [facility] [place] HPI General Stated complaint: Bilateral earache Time Seen by Provider: 12/22/23 17:13 History of Present Illness Provider Complaint: Bilateral ear pain, muffling, X 1 day after swimming Onset (ago): day(s) (1) Relieving factors: none Exacerbating factors: none Associated symptoms: denies other symptoms Treatments prior to arrival: none Related Data Home Medications Medication Instructions Recorded Confirmed nitrofurantoin macrocrystal 50 mg 50 mg PO DAILY bladder 04/07/22 11/24/23 capsule cyanocobalamin (vitamin B-12) 1,000 mcg IM .COMPLEX Supplement 06/06/22 11/24/23 1,000 mcg/mL injection solution ergocalciferol (vitamin D2) 1,000 13,000 unit PO WEEKLY Supplement 06/30/22 11/24/23 unit capsule tolterodine 4 mg capsule,extended 4 mg PO DAILY 11/02/22 11/24/23 release 24 hr Previous Rx's Medication Instructions Recorded erenumab-aooe 140 mg/mL 140 mg SQ QMONTH intractable 02/21/23 subcutaneous auto-injector migraine prevention #1 mL (Aimovig Autoinjector) ubrogepant 100 mg tablet (Ubrelvy) 100 mg PO ONCE PRN Intractable 02/21/23 migraine #16 tabs cariprazine 3 mg capsule (Vraylar) 3 mg PO DAILY #30 caps 10/31/23 vilazodone 40 mg tablet See Rx Instructions .Route 11/23/23 .COMPLEX #30 tabs clonazepam 0.5 mg tablet (Klonopin) 0.5 mg PO BID PRN anxiety #30 tabs 12/15/23 ofloxacin 0.3 % ear drops 10 drp otic (ear) BID 7 days #10 mL 12/22/23 Allergies Allergy/AdvReac Type Severity Reaction Status Date / Time Penicillins [PENICILLINS] Allergy Severe Swelling Verified 12/22/23 17:02 of Lip/Tongue/Throat ethinyl estradiol Allergy Unknown swelling Verified 12/22/23 17:02 [From NUVARING] legs etonogestrel [From NUVARING] Allergy Unknown swelling Verified 12/22/23 17:02 legs fluconazole [FLUCONAZOLE] Allergy Unknown Rash Verified 12/22/23 17:02 guaifenesin [From MUCINEX] Allergy Unknown Rash Verified 12/22/23 17:02 Sulfa (Sulfonamide Allergy Unknown Rash Verified 12/22/23 17:02 Antibiotics) [SULFA (SULFONAMIDE ANTIBIOTICS)] sulfamethoxazole Allergy Rash Verified 12/22/23 17:02 [From Bactrim] trimethoprim [From Bactrim] Allergy Rash Verified 12/22/23 17:02 [facility] Disclaimer: The information contained in this section may have been updated after the patient was seen, as this information can be updated by other users. 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 (Updated 12/22/23 @ 17:15 by FAZAL Stauffer) Conjunctivitis Headache Visual disturbance Hypothyroid Yeast infection of the skin Depression Anxiety Urinary tract infection Sleep apnea History of COVID-19 Migraine Irritable bowel syndrome (IBS) Allergies History of anemia Normal esophagogastroduodenoscopy (EGD) Rectal tear Family history of breast cancer in female delivery delivered Sterilization Twin gestation in third trimester Twin gestation in second trimester Surgical History (Updated 06/07/23 @ 08:57 by Malathi Felder APRN) History of endometrial ablation H/O LEEP H/O dilation and curettage History of surgery History of H/O gastric sleeve History of cystoscopy History of incision and drainage History of salpingectomy Previous section 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 Other Family history of cancer Family history of hyperlipidemia Family history of hypertension Family history of myocardial infarction 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 Smoking Status: Former smoker tobacco type: cigarettes years smoked: 5 smoking status stop date: 2000 second hand exposure: No alcohol intake: never counseling provided: none substance use type: denies use current occupational status: employed Travel in the last 8 weeks: None household members: spouse and family housing: house lives independently: Yes marital status: number of children: 9 education level: high school caffeine: Yes special lanie needs: No agree to transfusion: No do you feel safe at home: Yes victim of physical abuse: No victim of emotional abuse: No victim of sexual abuse: No would you like helpful sources: No ROS Obtained: Yes All systems reviewed & no additional complaints except as documented ENT Ears, Nose, Mouth, and Throat: Reports ear discharge and Reports otalgia Physical Exam General General appearance: alert and in no apparent distress Head Head exam: atraumatic, normocephalic and normal inspection ENT ENT exam: Present normal exam, normal oropharynx, mucous membranes moist, TM's normal bilaterally and normal external ear exam Expanded ENT Exam TM/Canal exam: Bilateral TM: canal discharge and canal tenderness Respiratory Respiratory exam: Present normal lung sounds bilaterally; Absent respiratory distress Cardiovascular Cardiovascular exam: Present regular rate and normal rhythm; Absent JVD Extremities Exam Extremities exam: Present normal inspection, full ROM and normal capillary refill; Absent calf tenderness Neurological Exam Neurological exam: Present alert and oriented X3 Psychiatric Psychiatric exam: Present normal affect and normal mood Skin Skin exam: Present warm, dry, intact and normal color Lymphatic Lymphatic Findings: no adenopathy Medical Decision Making Bertin Inquiry Pt receiving controlled substance: No
[2023-12-22 17:00] VITALS: BP 124/78; PULSE 71; RESP 16; TEMP 36.8; O2SAT 96; BMI 60.2
[2023-12-22 17:22] VITALS: BP 124/78; PULSE 71; RESP 16; TEMP 36.8; O2SAT 96
== END 2023-12-22 17:23 | disposition home or self-care (01) ==
PROVIDERS: Emergency Provider Physician Assistant; PCP Internal Medicine Adolescent Medicine
DX: H60.93 Unspecified otitis externa, bilateral (principal)
CPT/HCPCS: 99212; 99214; G0463

== ENCOUNTER 2023-12-23 15:02 | Outpatient (CLI) | payer SELFPAY ==
[2023-12-23 15:13] VITALS: BMI 60.2
[2023-12-23] MEDS: TUBERCULIN 5 UNITS/0.1ML 1ML VIAL ID (15:14)
== END 2023-12-23 23:59 | disposition home or self-care (01) ==
PROVIDERS: PCP Internal Medicine Adolescent Medicine; Visit Provider Nurse Practitioner Family
DX: Z11.7 Encounter for testing for latent tuberculosis infection (principal)
CPT/HCPCS: 86580

== ENCOUNTER 2024-01-03 09:38 | Outpatient (CLI) | payer OTHER, SELFPAY ==
--- NOTE | 2024-01-03 09:42 | MM_ITS ---
PROCEDURE INFORMATION: Exam: MG Bilateral Screening 3D Mammography Exam date and time: 01/03/2024 9:37 AM Age: 38 years old Clinical indication: Screening examination TECHNIQUE: Imaging protocol: Bilateral Screening tomosynthesis and 2D mammography including computer-aided detection (CAD) when performed. COMPARISON: MG MM DIG SCREENING MAMM BI W/CAD 04/28/2022 9:46 AM FINDINGS: MAMMOGRAPHY: Breast composition: There are scattered areas of fibroglandular density. Mass: None. Architectural distortion: No new or suspicious architectural distortion. Calcifications: No new or suspicious calcifications are present Asymmetric density: No new or suspicious asymmetric density is present Skin thickening: None. Axillary adenopathy: None. IMPRESSION: No mammographic evidence of malignancy. Recommend annual screening mammography unless otherwise clinically indicated. ASSESSMENT: BI-RADS category 1: Negative.
== END 2024-01-03 23:59 | disposition home or self-care (01) ==
LOC: RAD 09:39
PROVIDERS: PCP Internal Medicine Adolescent Medicine; Visit Provider Nurse Practitioner Family
DX: Z12.31 Encounter for screening mammogram for malignant neoplasm of breast (principal)
CPT/HCPCS: 77063; 77067

== ENCOUNTER 2024-05-08 08:00 | Day surgery (SDC) | payer OTHER, SELFPAY ==
[2024-05-06 14:10] VITALS: BMI 61.2
--- NOTE | 2024-05-08 08:31 | EXP.ANES.CKL ---
[facility] Disclaimer: The information contained in this section may have been updated after the patient was seen, as this information can be updated by other users. 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 Conjunctivitis Headache Visual disturbance Hypothyroid Yeast infection of the skin Depression Anxiety Urinary tract infection Sleep apnea History of COVID-19 Migraine Irritable bowel syndrome (IBS) Allergies History of anemia Normal esophagogastroduodenoscopy (EGD) Rectal tear Family history of breast cancer in female delivery delivered Sterilization Twin gestation in third trimester Twin gestation in second trimester Surgical History History of endometrial ablation H/O LEEP H/O dilation and curettage History of surgery History of H/O gastric sleeve History of cystoscopy History of incision and drainage History of salpingectomy Previous section 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 Other Family history of cancer Family history of hyperlipidemia Family history of hypertension Family history of myocardial infarction 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 Smoking Status: Former smoker tobacco type: cigarettes years smoked: 5 smoking status stop date: 2000 second hand exposure: No alcohol intake: never counseling provided: none substance use type: denies use current occupational status: employed Travel in the last 8 weeks: None household members: spouse and family housing: house lives independently: Yes marital status: number of children: 9 education level: high school caffeine: Yes special lanie needs: No agree to transfusion: No do you feel safe at home: Yes victim of physical abuse: No victim of emotional abuse: No victim of sexual abuse: No would you like helpful sources: No [facility] Anesthesia Checklist Patient Identification Patient Identification: Arm Band and Verbal (Name & ) Structural Data Admitted From: Home Planned Operative Procedure/s: Colonoscopy Consent for Planned Operative Procedure(s) Verified: Yes Verified Documents: Surgical Consent and History and Physical NPO Status Verified Time NPO: 00:00 Additional verifications Anesthesia Reactions: Yes (N/V) Hx Blood Transfusions: Yes Blood Transfusion Reaction: No Airway Assessment Mallampati Score:: Class II C-Spine Mobility Assessed: Yes TMJ Mobility Assessed: Yes Dentition: Good Dentition Neurological Assessment Level of Consciousness: Awake Numbness or tingling in extremities: No Anesthesia Plan Anesthesia Risk discussed: Yes Anesthesia Plan: Verified ASA Class: III Anesthesia Type: MAC
[2024-05-08 08:32] VITALS: BP 125/66; PULSE 95; RESP 18; TEMP 36.2; O2SAT 95; BMI 61.2
[2024-05-08] MEDS: 0.9 % SODIUM CHLORIDE 1000ML 1,000 ML 25 ML IV (08:32)
[2024-05-08 08:37] LABS: Urine Pregnancy, HCG Qual. Negative (Negative)
--- NOTE | 2024-05-08 08:55 | EXP.HP ---
History of Present Illness *Admission Date: 05/08/24 *Reason for visit:: Diagnostic-diarrhea and abdominal cramps *History of present illness: Mrs. Schilling is a 38-year-old female who is here for diagnostic colonoscopy. She has had longstanding IBS with diarrhea but the diarrhea has worsened and she does get crampy abdominal discomfort with excessive gassiness and bloating. The examination is deemed medically necessary for colonoscopy. The patient has been seen, interviewed and examined prior to the procedure by both myself and the anesthesia provider. [facility] Disclaimer: The information contained in this section may have been updated after the patient was seen, as this information can be updated by other users. 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 Conjunctivitis Headache Visual disturbance Hypothyroid Yeast infection of the skin Depression Anxiety Urinary tract infection Sleep apnea History of COVID-19 Migraine Irritable bowel syndrome (IBS) Allergies History of anemia Normal esophagogastroduodenoscopy (EGD) Rectal tear Family history of breast cancer in female delivery delivered Sterilization Twin gestation in third trimester Twin gestation in second trimester Surgical History History of endometrial ablation H/O LEEP H/O dilation and curettage History of surgery History of H/O gastric sleeve History of cystoscopy History of incision and drainage History of salpingectomy Previous section 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 Other Family history of cancer Family history of hyperlipidemia Family history of hypertension Family history of myocardial infarction 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 Smoking Status: Former smoker tobacco type: cigarettes years smoked: 5 smoking status stop date: 2000 second hand exposure: No alcohol intake: never counseling provided: none substance use type: denies use current occupational status: employed Travel in the last 8 weeks: None household members: spouse and family housing: house lives independently: Yes marital status: number of children: 9 education level: high school caffeine: Yes special lanie needs: No agree to transfusion: No do you feel safe at home: Yes victim of physical abuse: No victim of emotional abuse: No victim of sexual abuse: No would you like helpful sources: No Other 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 Have you received the Flu Vaccine for this season: No Have you received the Pneumonia Vaccine: No Review of Systems Review of Systems Review of systems (narrative): Negative *Cardiovascular Comments: Negative *Gastrointestinal Comments: Negative *Genitourinary Comments: Negative *Musculoskeletal Comments: Negative *Neurologic Comments: Negative Meds Home Medications and Allergies Home Medications ?Medication ?Instructions ?Recorded ?Confirmed ?Type cyanocobalamin (vitamin B-12) 1,000 mcg IM .COMPLEX Supplement 06/06/22 05/08/24 History 1,000 mcg/mL injection solution ergocalciferol (vitamin D2) 1,000 13,000 unit PO WEEKLY Supplement 06/30/22 05/08/24 History unit capsule tolterodine 4 mg capsule,extended 4 mg PO DAILY 11/02/22 05/08/24 History release 24 hr buspirone 5 mg tablet 5 mg PO BID #60 tabs 03/20/24 05/08/24 Rx cariprazine 3 mg capsule (Vraylar) See Rx Instructions .Route 03/20/24 05/08/24 Rx .COMPLEX #30 caps vilazodone 40 mg tablet See Rx Instructions .Route 03/20/24 05/08/24 Rx .COMPLEX #30 tabs dicyclomine 20 mg tablet 20 mg PO DAILY 04/03/24 05/08/24 History hyoscyamine sulfate 0.125 mg 0.125 mg sublingual QID PRN 04/03/24 05/08/24 Rx sublingual tablet urgency/cramping #120 tabs syringe with needle 3 mL 23 x 1 #1 ea 04/03/24 05/08/24 History (BD Luer-Santi Syringe) erenumab-aooe 140 mg/mL 140 mg SQ QMONTH intractable 04/12/24 05/08/24 Rx subcutaneous auto-injector migraine prevention #1 mL (Aimovig Autoinjector) ubrogepant 100 mg tablet (Ubrelvy) 100 mg PO ONCE PRN Intractable 04/12/24 05/08/24 Rx migraine #16 tabs terconazole 0.4 % vaginal cream 5 g vaginal HS 3 days #45 grams 04/24/24 05/08/24 Rx sodium,potassium,mag sulfates 17.5 See Rx Instructions PO .COMPLEX 04/29/24 05/08/24 Rx gram-3.13 gram-1.6 gram oral soln #354 mL (Suprep Bowel Prep Kit) New Prescriptions to Start Prescriptions: Allergies Allergy/AdvReac Type Severity Reaction Status Date / Time Penicillins [PENICILLINS] Allergy Severe Swelling Verified 05/08/24 08:29 of Lip/Tongue/Throat ethinyl estradiol Allergy Unknown swelling Verified 05/08/24 08:29 [From NUVARING] legs etonogestrel [From NUVARING] Allergy Unknown swelling Verified 05/08/24 08:29 legs fluconazole [FLUCONAZOLE] Allergy Unknown Rash Verified 05/08/24 08:29 guaifenesin [From MUCINEX] Allergy Unknown Rash Verified 05/08/24 08:29 Sulfa (Sulfonamide Allergy Unknown Rash Verified 05/08/24 08:29 Antibiotics) [SULFA (SULFONAMIDE ANTIBIOTICS)] sulfamethoxazole Allergy Rash Verified 05/08/24 08:29 [From Bactrim] trimethoprim [From Bactrim] Allergy Rash Verified 05/08/24 08:29 Exam Data for Last 24 hours Vital signs and Labs for Last 24 Hours: Temp Pulse Resp BP Pulse Ox O2 Del Method 97.2 F L 95 H 18 125/66 95 Room Air 05/08/24 08:32 05/08/24 08:32 05/08/24 08:32 05/08/24 08:32 05/08/24 08:32 05/08/24 08:32 Laboratory Results - last 24 hr 05/08/24 08:18: Urine HCG, Qual Negative I & O for Last 24 hours: Intake & Output 05/05/24 05/06/24 05/07/24 05/08/24 22:59 23:59 23:59 23:59 Weight 415 lb 415 lb *Routine HEENT Exam Head: Present normocephalic Eye: Present EOMI and PERRL ENT: Present mucous membranes moist *Routine Neck Exam Neck: Present supple *Routine Respiratory Exam Respiratory: Present CTA bilaterally *Routine Cardiovascular Exam Cardiovascular: Present RRR *Routine Abdominal Exam Abdominal: Present soft and normoactive bowel sounds; Absent tenderness *Routine Rectal Exam Rectal:: deferred *Routine Genitalia Exam Genitalia:: deferred *Routine Extremities Exam Extremities: Absent cyanosis, clubbing or edema *Routine Skin Exam Skin: Present warm; Absent rash *Routine Neurological Exam Neurological: Present alert and oriented X3 Assessment and Plan *Assessment and plan (1) Diarrhea: Status: Acute Category: Medical Code(s): R19.7 - Diarrhea, unspecified (2) Change in bowel habits: Status: Acute Category: Medical Code(s): R19.4 - Change in bowel habit (3) Abdominal cramps: Status: Acute Category: Medical Code(s): R10.9 - Unspecified abdominal pain (4) Bloating: Status: Acute Category: Medical Code(s): R14.0 - Abdominal distension (gaseous) Plan A/P: 1. Change in bowel habits with diarrhea (presumed IBS with diarrhea), cramps, gassiness and bloating is the preprocedural diagnosis. The patient will be anesthetized/sedated using MAC sedation. The patient has been seen and examined. Cardiac and lung assessment prior to the examination is stable. Proceed with planned colonoscopy
[2024-05-08 08:57] VITALS: O2SAT 99
--- NOTE | 2024-05-08 08:57 | HMH.PROCNOTE ---
[facility] Procedure Note Date: 05/08/24 Time: 09:11 Procedure Note:: Colonoscopy Procedure Report: Colonoscopy with cold biopsies Endoscopist: James Alvarez II, MD Referring physician: Nella LOCKE Date of Procedure: May 08, 2024 Equipment: Olympus 190 variable stiffness pediatric colonoscope Sedation: MAC sedation Indication: Mrs. Schilling is a 38-year-old female with IBS-D her whole life but over the last few years her diarrhea has worsened. She does get crampy abdominal discomfort, gassiness and bloating. She has had no prior gallbladder disease or cholecystectomy. She does state that her maternal uncle had colon cancer in his 50s. She reports no rectal bleeding, weight loss or mucus with her stools. This is her first colonoscopy. Procedure: Prior to the procedure, a history and physical exam was performed, and patient's medications and allergies were reviewed. The risks, benefits and alternatives of the sedation and procedure were discussed with the patient. All questions were answered and informed consent was obtained. The patient was brought to the procedure room. Patient identification and proposed procedure were verified by the physician and the nurse. The patient was placed in a left lateral decubitus position and the scope was passed under direct vision. Throughout the procedure, the patient's blood pressure, pulse, and oxygen saturations were monitored continuously. The colonoscopy was accomplished without difficulty. The patient tolerated the procedure well. Findings: On digital rectal examination there was normal rectal tone. There were no external hemorrhoids. The colonoscope was introduced through the anal canal to the rectum and advanced to the cecum. The ileocecal valve and appendiceal orifice were identified. The scope was advanced a short distance into the ileum which appeared grossly normal. The scope was then withdrawn into the colon. The cecum, ascending, transverse, descending, sigmoid and rectum were grossly normal. Random cold biopsies were taken from the right colon to rule out microscopic colitis. There were no mucosal abnormalities identified. Upon retroflexion within the rectum there were grade 1 internal hemorrhoids.The preparation was excellent throughout with Hodgen Preparation Score of 9. The cecal time was 8 minutes. Impression: 1. Normal colonoscopy with intubation of the terminal ileum Plan: I will follow-up the biopsies to rule out microscopic colitis. I do feel that this is most likely IBS diarrhea. She has tried [id number] treatments. I would add bulking FiberCon. Treatment options will include dicyclomine but I would certainly consider Viberzi. Viberzi (Eluxadoline) is a very good therapy for the treatment of diarrhea from irritable bowel syndrome. Viberzi is primarily utilized in patients with severe IBS?D. This drug is effective for the diarrhea and is a very good option for those who have failed other treatments for the IBS with diarrhea. There is a small risk of pancreatitis associated with this medication (0.3%) especially in those who have heavy alcohol use or had previous gallbladder removal. It is recommended not to use Viberzi in the setting of active alcohol use or prior cholecystectomy. This medication is taken twice daily with food. She should see results within a few days and if this is effective, I would continue this as a maintenance treatment.
[2024-05-08 09:16] VITALS: BP 123/80; PULSE 59; RESP 18; TEMP 36.6; O2SAT 96
[2024-05-08 09:26] VITALS: BP 127/66; PULSE 59; RESP 18; O2SAT 98
[2024-05-08 09:36] VITALS: BP 122/71; PULSE 58; RESP 18; O2SAT 98
[2024-05-08 09:46] VITALS: BP 121/72; PULSE 58; RESP 16; TEMP 36.6; O2SAT 97
== END 2024-05-08 09:46 | disposition home or self-care (01) ==
PROVIDERS: PCP Nurse Practitioner Family; Visit Provider Internal Medicine Gastroenterology
PROC: (CPT 45380; principal; 2024-05-08 10:00)
DX: R19.7 Diarrhea, unspecified (principal); R19.4 Change in bowel habit; R10.9 Unspecified abdominal pain; R14.0 Abdominal distension (gaseous); K58.0 Irritable bowel syndrome with diarrhea; K64.0 First degree hemorrhoids; Z80.0 Family history of malignant neoplasm of digestive organs; Z12.11 Encounter for screening for malignant neoplasm of colon
CPT/HCPCS: 45380; 81025; J7030

== ENCOUNTER 2024-06-09 08:57 | Emergency (ER) | payer OTHER, SELFPAY ==
[2024-06-09 09:10] VITALS: BP 141/81; PULSE 90; RESP 18; TEMP 37; O2SAT 99; BMI 62.3
[2024-06-09 09:21] LABS: UTC Strep Screen (Rapid) Positive (Negative)
--- NOTE | 2024-06-09 09:33 | EXP.UTC ---
Discharge Plan Disposition Patient Disposition: Home, Self-Care Condition: Good Prescriptions Prescriptions: New azithromycin 250 mg tablet 250 mg PO DIRECTED Qty: 6 0RF Rx Instructions: Take two (2) tablets on day #1, then one (1) tablet day #2 thru #5 No Action tolterodine 4 mg capsule,extended release 24hr 4 mg PO DAILY (DME) BD Luer-Santi Syringe 3 mL 23 x 1 syringe See Rx Instructions .ROUTE .MEDSUPPLY Qty: 1 Rx Instructions: As directed dicyclomine 20 mg tablet 20 mg PO DAILY hyoscyamine sulfate 0.125 mg tablet, sublingual 0.125 mg sublingual QID PRN (Reason: urgency/cramping) Qty: 120 2RF terconazole 0.4 % cream 5 g vaginal HS 3 Days Qty: 45 0RF Rx Instructions: apply small amount to inner thigh/groin area prn cyanocobalamin (vitamin B-12) 1,000 mcg/mL solution 1,000 mcg IM .COMPLEX Rx Instructions: 1,000 mcg intramuscularly every 2 weeks; Aimovig Autoinjector 140 mg/mL auto-injector 140 mg SQ QMONTH Qty: 1 11RF Ubrelvy 100 mg tablet 100 mg PO ONCE PRN (Reason: Intractable migraine) Qty: 16 11RF Rx Instructions: Take 100 mg at onset of headache. May repeat 100 mg after 2 hours. Max dose 200 mg in 24 hours. buspirone 5 mg tablet 5 mg PO BID Qty: 60 2RF Vraylar 3 mg capsule See Rx Instructions .ROUTE .COMPLEX Qty: 30 3RF Dose Instruction: TAKE 1 CAPSULE BY MOUTH ONCE DAILY Rx Instructions: TAKE 1 CAPSULE BY MOUTH ONCE DAILY vilazodone 40 mg tablet See Rx Instructions .ROUTE .COMPLEX Qty: 30 3RF Dose Instruction: TAKE 1 TABLET BY MOUTH ONCE DAILY FOR DEPRESSION; MUST ADMINISTER WITH A MEAL/FOOD Rx Instructions: TAKE 1 TABLET BY MOUTH ONCE DAILY FOR DEPRESSION; MUST ADMINISTER WITH A MEAL/FOOD sodium,potassium,mag sulfates [Suprep Bowel Prep Kit] 17.5-3.13-1.6 gram recon soln See Rx Instructions PO .COMPLEX Qty: 354 0RF Rx Instructions: DILUTE; drink full amount early evening before AND next morning at least 2 hr before procedure; follow w 960 mL water PO ergocalciferol (vitamin D2) 1,000 unit Capsule 13,000 unit PO WEEKLY Viberzi 100 mg tablet 100 mg PO BID Qty: 60 0RF Rx Instructions: must administer with a meal/food and please take this p.o. twice daily Referrals Follow up/Referrals: Nella Johansen APRN [Primary Care Provider] - See instructions Activity Restrictions/Add. Instructions Additional Instructions/Restrictions: Start antibiotics today be sure to take it as ordered with the full length of time although you should start feeling better in 24-48 hours. Change toothbrush and toothpaste 24-48 hours after starting antibiotics Tylenol or Motrin as needed for fever or pain Encourage fluids, water, Gatorade, Powerade, try cold fluids, popsicles, ice cream will make it feel better You are contagious for 24 hours. Avoid kissing anyone, no eating or drinking after anyone. You are contagious. Follow-up the ER for new or worsening symptoms or no noticeable improvement over the next 24-48 hours. Follow-up with PCP this week. Clinical Impressions Clinical Impression: Strep sore throat Instructions Patient Instructions: DI for Strep Throat Print Language Print Language: Macanese Discharge ED Provider: Rickey ([facility])[place] [facility] [place] General Stated complaint: sore throat, red swollen Mode of Arrival: Ambulatory Source of Information: Patient Limitations: No Limitations Time Seen by Provider: 06/09/24 09:23 Description of Symptoms (Recalled from Triage Doc. by RN): PATIENT C/O SWOLLEN AND SORE THROAT SINCE YESTERDAY. SHE STATES HER CHILDREN HAVE STREP HEENT Symptoms (Recalled from RN notes): Yes Resp Symptoms (Recalled from RN notes): No Skin Symptoms (Recalled from RN notes): No MS Symptoms (Recalled from RN notes): No Functional Status (Recalled from RN notes): WNL History of Present Illness Provider Complaint: 38-year-old female presents for sore throat with painful swallowing since yesterday. Patient states 2 of her children have strep Related Data Home Medications ?Medication ?Instructions ?Recorded ?Confirmed cyanocobalamin (vitamin B-12) 1,000 mcg IM .COMPLEX Supplement 06/06/22 05/08/24 1,000 mcg/mL injection solution ergocalciferol (vitamin D2) 1,000 13,000 unit PO WEEKLY Supplement 06/30/22 05/08/24 unit capsule tolterodine 4 mg capsule,extended 4 mg PO DAILY 11/02/22 05/08/24 release 24 hr dicyclomine 20 mg tablet 20 mg PO DAILY 04/03/24 05/08/24 syringe with needle 3 mL 23 x 1 #1 ea 04/03/24 05/08/24 (BD Luer-Santi Syringe) Previous Rx's ?Medication ?Instructions ?Recorded hyoscyamine sulfate 0.125 mg 0.125 mg sublingual QID PRN 04/03/24 sublingual tablet urgency/cramping #120 tabs erenumab-aooe 140 mg/mL 140 mg SQ QMONTH intractable 04/12/24 subcutaneous auto-injector migraine prevention #1 mL (Aimovig Autoinjector) ubrogepant 100 mg tablet (Ubrelvy) 100 mg PO ONCE PRN Intractable 04/12/24 migraine #16 tabs terconazole 0.4 % vaginal cream 5 g vaginal HS 3 days #45 grams 04/24/24 sodium,potassium,mag sulfates 17.5 See Rx Instructions PO .COMPLEX 04/29/24 gram-3.13 gram-1.6 gram oral soln #354 mL (Suprep Bowel Prep Kit) eluxadoline 100 mg tablet (Viberzi) 100 mg PO BID #60 tabs 05/08/24 buspirone 5 mg tablet 5 mg PO BID #60 tabs 05/22/24 cariprazine 3 mg capsule (Vraylar) See Rx Instructions .Route 05/22/24 .COMPLEX #30 caps vilazodone 40 mg tablet See Rx Instructions .Route 05/22/24 .COMPLEX #30 tabs azithromycin 250 mg tablet 250 mg PO DIRECTED #6 tabs 06/09/24 Allergies Allergy/AdvReac Type Severity Reaction Status Date / Time Penicillins (PENICILLINS) Allergy Severe Swelling Verified 05/22/24 10:16 of Lip/Tongue/Throat ethinyl estradiol (From Allergy Unknown swelling Verified 05/22/24 10:16 NUVARING) legs etonogestrel (From NUVARING) Allergy Unknown swelling Verified 05/22/24 10:16 legs fluconazole (FLUCONAZOLE) Allergy Unknown Rash Verified 05/22/24 10:16 guaifenesin (From MUCINEX) Allergy Unknown Rash Verified 05/22/24 10:16 Sulfa (Sulfonamide Allergy Unknown Rash Verified 05/22/24 10:16 Antibiotics) (SULFA (SULFONAMIDE ANTIBIOTICS)) sulfamethoxazole (From Allergy Rash Verified 05/22/24 10:16 Bactrim) trimethoprim (From Bactrim) Allergy Rash Verified 05/22/24 10:16 Worker's Comp Is this a Worker's Comp case?: No PFSH PFS Disclaimer: The information contained in this section may have been updated after the patient was seen, as this information can be updated by other users. 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) History of endometrial ablation H/O LEEP H/O dilation and curettage History of surgery History of H/O gastric sleeve History of cystoscopy History of incision and drainage History of salpingectomy Previous section 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 , 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) Family history of cancer Family history of hypertension Family history of myocardial infarction Family history of hyperlipidemia 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 , 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) Smoking Status: Former smoker tobacco type: cigarettes years smoked: 5 smoking status stop date: 2000 second hand exposure: No alcohol intake: never counseling provided: none substance use type: denies use current occupational status: employed Travel in the last 8 weeks: None household members: spouse and family housing: house lives independently: Yes marital status: number of children: 9 education level: high school caffeine: Yes special lanie needs: No agree to transfusion: No do you feel safe at home: Yes victim of physical abuse: No victim of emotional abuse: No victim of sexual abuse: No would you like helpful sources: No ROS Obtained: Yes Systems reviewed as appropriate & no additional complaints except as documented Physical Exam General General appearance: alert and in no apparent distress Eye Eye exam: Present normal appearance ENT ENT exam: Present mucous membranes moist and TM's normal bilaterally Expanded ENT Exam Throat exam: Present tonsillar erythema, tonsillomegaly and tonsillar exudate Respiratory Respiratory exam: Present normal lung sounds bilaterally Cardiovascular Cardiovascular exam: Present regular rate and normal rhythm Neurological Exam Neurological exam: Present alert and oriented X3 Lymphatic Lymphatic Findings: no adenopathy Medical Decision Making Medical Records Medical records reviewed: Yes I reviewed the patient's medical records. Screening: Per USPSTF and CDC recommendations, given the prevalence of disease in our region, it is our hospital?s policy to screen for HIV and viral Hepatitis for all patients aged 18 and over and those with ongoing risk factors. Bertin Inquiry Pt receiving controlled substance: No Bertin was queried for this patient: No Vital Signs: 06/09/24 09:10 Temperature 98.6 F Temperature Source Oral Pulse Rate [Left Brachial] 90 Respiratory Rate 18 Blood Pressure [Left Arm] 141/81 H Blood Pressure Mean [Left Arm] 101 Blood Pressure Source [Left Arm] Automatic Cuff Blood Pressure Position [Left Arm] Sitting 02 Sat by Pulse Oximetry 99 Oxygen Delivery Method Room Air Lab Data Lab results reviewed: Yes I reviewed the patient's lab results. Lab Results 06/09/24 09:05: Strep Scn Rapid Clinic Positive A
--- NOTE | 2024-06-09 09:39 | ED_ITS ---
Discharge Plan Disposition Patient Disposition: Home, Self-Care Condition: Good Prescriptions Prescriptions: New azithromycin 250 mg tablet 250 mg PO DIRECTED Qty: 6 0RF Rx Instructions: Take two (2) tablets on day #1, then one (1) tablet day #2 thru #5 No Action tolterodine 4 mg capsule,extended release 24hr 4 mg PO DAILY (DME) BD Luer-Santi Syringe 3 mL 23 x 1 syringe See Rx Instructions .ROUTE .MEDSUPPLY Qty: 1 Rx Instructions: As directed dicyclomine 20 mg tablet 20 mg PO DAILY hyoscyamine sulfate 0.125 mg tablet, sublingual 0.125 mg sublingual QID PRN (Reason: urgency/cramping) Qty: 120 2RF terconazole 0.4 % cream 5 g vaginal HS 3 Days Qty: 45 0RF Rx Instructions: apply small amount to inner thigh/groin area prn cyanocobalamin (vitamin B-12) 1,000 mcg/mL solution 1,000 mcg IM .COMPLEX Rx Instructions: 1,000 mcg intramuscularly every 2 weeks; Aimovig Autoinjector 140 mg/mL auto-injector 140 mg SQ QMONTH Qty: 1 11RF Ubrelvy 100 mg tablet 100 mg PO ONCE PRN (Reason: Intractable migraine) Qty: 16 11RF Rx Instructions: Take 100 mg at onset of headache. May repeat 100 mg after 2 hours. Max dose 200 mg in 24 hours. buspirone 5 mg tablet 5 mg PO BID Qty: 60 2RF Vraylar 3 mg capsule See Rx Instructions .ROUTE .COMPLEX Qty: 30 3RF Dose Instruction: TAKE 1 CAPSULE BY MOUTH ONCE DAILY Rx Instructions: TAKE 1 CAPSULE BY MOUTH ONCE DAILY vilazodone 40 mg tablet See Rx Instructions .ROUTE .COMPLEX Qty: 30 3RF Dose Instruction: TAKE 1 TABLET BY MOUTH ONCE DAILY FOR DEPRESSION; MUST ADMINISTER WITH A MEAL/FOOD Rx Instructions: TAKE 1 TABLET BY MOUTH ONCE DAILY FOR DEPRESSION; MUST ADMINISTER WITH A MEAL/FOOD sodium,potassium,mag sulfates [Suprep Bowel Prep Kit] 17.5-3.13-1.6 gram recon soln See Rx Instructions PO .COMPLEX Qty: 354 0RF Rx Instructions: DILUTE; drink full amount early evening before AND next morning at least 2 hr before procedure; follow w 960 mL water PO ergocalciferol (vitamin D2) 1,000 unit Capsule 13,000 unit PO WEEKLY Viberzi 100 mg tablet 100 mg PO BID Qty: 60 0RF Rx Instructions: must administer with a meal/food and please take this p.o. twice daily Referrals Follow up/Referrals: Nella Johansen APRN [Primary Care Provider] - See instructions Activity Restrictions/Add. Instructions Additional Instructions/Restrictions: Start antibiotics today be sure to take it as ordered with the full length of time although you should start feeling better in 24-48 hours. Change toothbrush and toothpaste 24-48 hours after starting antibiotics Tylenol or Motrin as needed for fever or pain Encourage fluids, water, Gatorade, Powerade, try cold fluids, popsicles, ice cream will make it feel better You are contagious for 24 hours. Avoid kissing anyone, no eating or drinking after anyone. You are contagious. Follow-up the ER for new or worsening symptoms or no noticeable improvement over the next 24-48 hours. Follow-up with PCP this week. Clinical Impressions Clinical Impression: Strep sore throat Instructions Patient Instructions: DI for Strep Throat Print Language Print Language: Taiwanese Discharge ED Provider: Rickey ([facility])[place] [facility] [place] General Stated complaint: sore throat, red swollen Mode of Arrival: Ambulatory Source of Information: Patient Limitations: No Limitations Time Seen by Provider: 06/09/24 09:23 Description of Symptoms (Recalled from Triage Doc. by RN): PATIENT C/O SWOLLEN AND SORE THROAT SINCE YESTERDAY. SHE STATES HER CHILDREN HAVE STREP HEENT Symptoms (Recalled from RN notes): Yes Resp Symptoms (Recalled from RN notes): No Skin Symptoms (Recalled from RN notes): No MS Symptoms (Recalled from RN notes): No Functional Status (Recalled from RN notes): WNL History of Present Illness Provider Complaint: 38-year-old female presents for sore throat and pain with swallowing. Patient states that children at home were diagnosed with strep Related Data Home Medications ?Medication ?Instructions ?Recorded ?Confirmed cyanocobalamin (vitamin B-12) 1,000 mcg IM .COMPLEX Supplement 06/06/22 05/08/24 1,000 mcg/mL injection solution ergocalciferol (vitamin D2) 1,000 13,000 unit PO WEEKLY Supplement 06/30/22 05/08/24 unit capsule tolterodine 4 mg capsule,extended 4 mg PO DAILY 11/02/22 05/08/24 release 24 hr dicyclomine 20 mg tablet 20 mg PO DAILY 04/03/24 05/08/24 syringe with needle 3 mL 23 x 1 #1 ea 04/03/24 05/08/24 (BD Luer-Santi Syringe) Previous Rx's ?Medication ?Instructions ?Recorded hyoscyamine sulfate 0.125 mg 0.125 mg sublingual QID PRN 04/03/24 sublingual tablet urgency/cramping #120 tabs erenumab-aooe 140 mg/mL 140 mg SQ QMONTH intractable 04/12/24 subcutaneous auto-injector migraine prevention #1 mL (Aimovig Autoinjector) ubrogepant 100 mg tablet (Ubrelvy) 100 mg PO ONCE PRN Intractable 04/12/24 migraine #16 tabs terconazole 0.4 % vaginal cream 5 g vaginal HS 3 days #45 grams 04/24/24 sodium,potassium,mag sulfates 17.5 See Rx Instructions PO .COMPLEX 04/29/24 gram-3.13 gram-1.6 gram oral soln #354 mL (Suprep Bowel Prep Kit) eluxadoline 100 mg tablet (Viberzi) 100 mg PO BID #60 tabs 05/08/24 buspirone 5 mg tablet 5 mg PO BID #60 tabs 05/22/24 cariprazine 3 mg capsule (Vraylar) See Rx Instructions .Route 05/22/24 .COMPLEX #30 caps vilazodone 40 mg tablet See Rx Instructions .Route 05/22/24 .COMPLEX #30 tabs azithromycin 250 mg tablet 250 mg PO DIRECTED #6 tabs 06/09/24 Allergies Allergy/AdvReac Type Severity Reaction Status Date / Time Penicillins (PENICILLINS) Allergy Severe Swelling Verified 05/22/24 10:16 of Lip/Tongue/Throat ethinyl estradiol (From Allergy Unknown swelling Verified 05/22/24 10:16 NUVARING) legs etonogestrel (From NUVARING) Allergy Unknown swelling Verified 05/22/24 10:16 legs fluconazole (FLUCONAZOLE) Allergy Unknown Rash Verified 05/22/24 10:16 guaifenesin (From MUCINEX) Allergy Unknown Rash Verified 05/22/24 10:16 Sulfa (Sulfonamide Allergy Unknown Rash Verified 05/22/24 10:16 Antibiotics) (SULFA (SULFONAMIDE ANTIBIOTICS)) sulfamethoxazole (From Allergy Rash Verified 05/22/24 10:16 Bactrim) trimethoprim (From Bactrim) Allergy Rash Verified 05/22/24 10:16 Worker's Comp Is this a Worker's Comp case?: [facility] Dis[facility]: The information contained in this section may have been updated after the patient was seen, as this information can be updated by other users. 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) History of endometrial ablation H/O LEEP H/O dilation and curettage History of surgery History of H/O gastric sleeve History of cystoscopy History of incision and drainage History of salpingectomy Previous section 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 , 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) Family history of cancer Family history of hypertension Family history of myocardial infarction Family history of hyperlipidemia 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 , 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) Smoking Status: Former smoker tobacco type: cigarettes years smoked: 5 smoking status stop date: 2000 second hand exposure: No alcohol intake: never counseling provided: none substance use type: denies use current occupational status: employed Travel in the last 8 weeks: None household members: spouse and family housing: house lives independently: Yes marital status: number of children: 9 education level: high school caffeine: Yes special lanie needs: No agree to transfusion: No do you feel safe at home: Yes victim of physical abuse: No victim of emotional abuse: No victim of sexual abuse: No would you like helpful sources: No ROS Obtained: Yes Systems reviewed as appropriate & no additional complaints except as documented Physical Exam General General appearance: alert and in no apparent distress Expanded ENT Exam Throat exam: Present tonsillar erythema, tonsillomegaly and tonsillar exudate Respiratory Respiratory exam: Present normal lung sounds bilaterally Cardiovascular Cardiovascular exam: Present regular rate and normal rhythm Neurological Exam Neurological exam: Present alert and oriented X3 Medical Decision Making Medical Records Medical records reviewed: Yes I reviewed the patient's medical records. Screening: Per USPSTF and CDC recommendations, given the prevalence of disease in our region, it is our hospital?s policy to screen for HIV and viral Hepatitis for all patients aged 18 and over and those with ongoing risk factors. Bertin Inquiry Pt receiving controlled substance: No Bertin was queried for this patient: No Vital Signs: 06/09/24 09:10 Temperature 98.6 F Temperature Source Oral Pulse Rate [Left Brachial] 90 Respiratory Rate 18 Blood Pressure [Left Arm] 141/81 H Blood Pressure Mean [Left Arm] 101 Blood Pressure Source [Left Arm] Automatic Cuff Blood Pressure Position [Left Arm] Sitting 02 Sat by Pulse Oximetry 99 Oxygen Delivery Method Room Air Lab Data Lab results reviewed: Yes I reviewed the patient's lab results. Lab Results 06/09/24 09:05: Strep Scn Rapid Clinic Positive A
[2024-06-09 09:42] VITALS: BP 141/81; PULSE 90; RESP 18; TEMP 37; O2SAT 99
== END 2024-06-09 09:45 | disposition home or self-care (01) ==
PROVIDERS: Emergency Provider Nurse Practitioner Family; PCP Nurse Practitioner Family
DX: J06.9 Acute upper respiratory infection, unspecified (principal)
CPT/HCPCS: 87880; 99213; G0381

== ENCOUNTER 2024-06-14 11:49 | Outpatient (CLI) | payer OTHER, SELFPAY ==
--- NOTE | 2024-06-14 11:53 | XR_ITS ---
FINAL REPORT CLINICAL HISTORY: left knee pain x 2 to 3 mo, decreased ROM FINDINGS: Left knee Four views were obtained. There is no fracture or dislocation. Mild degenerative changes are present. No soft tissue abnormality is identified. IMPRESSION: Mild degenerative changes. Reviewed, Interpreted and Dictated by Brayan Palafox III, MD Transcribed by Mere Parikh Authenticated and . [facility]
[2024-06-14 13:17] LABS: Albumin Level 4.3 g/dl (3.5-5.0); Chloride 106 mmol/L (98-107); Potassium 4.3 mmoL/L (3.5-5.1); Sodium 140 mmol/L (136-145)
[2024-06-14 13:19] LABS: Alanine Aminotransferase 17 U/L (12-78); Alkaline Phosphatase 96 U/L (38-126); Anion Gap 10.3 mEq/L (5-15); Aspartate Amino Transferase 33 U/L (14-36); Bilirubin,Total 0.5 mg/dl (0.2-1.3); Blood Urea Nitrogen 10 mg/dl (7-17); Carbon Dioxide 28 mmol/L (22.0-30.0); Estimated Glomerular Filt Rate 69 ml/min (>60); GFR (African American) 84 ML/MIN (>60)
[2024-06-14 13:20] LABS: Albumin/Globulin Ratio 1.8 (1.1-1.8); Calcium 8.9 mg/dl (8.4-10.2); Chol/HDL Ratio 6.3 (1-3.5); Cholesterol 246 mg/dl (140-200); Globulin 2.4 g/dL (1.3-3.2); Glucose 87 mg/dl (74-100); HDL Cholesterol 39 mg/dl (40-60); Total Protein,Serum 6.7 g/dl (6.3-8.2); Triglycerides 297 mg/dl (30-150); VLDL Cholesterol 59 mg/dL (0-40)
[2024-06-14 13:27] LABS: NT Pro Brain Natriuretic Pep. 158 pg/mL (0-125)
[2024-06-14 13:42] LABS: Direct LDL Cholesterol 152.35 mg/dL (100-129)
[2024-06-14 13:49] LABS: Thyroid Stimulating Hormone 3.81 uIU/mL (0.465-4.68)
[2024-06-14 14:18] LABS: Hemoglobin A1C 5.1 % (4.0-6.0)
[2024-06-14 14:37] LABS: Vitamin B12 372 pg/mL (239-931)
[2024-06-15 08:13] LABS: Triiodothyronine (T3) Total 112 ng/dL (71-180)
== END 2024-06-14 23:59 | disposition home or self-care (01) ==
LOC: RAD 11:50
PROVIDERS: PCP Nurse Practitioner Family; Visit Provider Nurse Practitioner Family
DX: M25.562 Pain in left knee (principal); M25.662 Stiffness of left knee, not elsewhere classified; E03.9 Hypothyroidism, unspecified; E53.8 Deficiency of other specified B group vitamins; R06.02 Shortness of breath; R63.5 Abnormal weight gain; Z68.44 Body mass index [BMI] 60.0-69.9, adult
CPT/HCPCS: 73564; 80053; 80061; 82607; 83036; 83880; 84443; 84480

== ENCOUNTER 2024-06-25 09:01 | Outpatient (CLI) | payer OTHER, SELFPAY ==
--- NOTE | 2024-06-25 | CA_ITS ---
APPROVED REPORT EXAM: Comprehensive 2D, Doppler, and color-flow Echocardiogram General Freight Agent: Lola Flores, RT(R) Ht: 5 ft 9 in Wt: 422lbs BSA: 2.84 BP: 117/81 mmHg Indications: SOB, smoker, edema, gastric sleeve 5 years 2D Dimensions LVEF (Gottlieb's) 59.90 % F: 54 - 74 LV Volume 180.70 mL F: 46 - 106 LV Volume Index 63.6 mL/m2 F: 29 - 61 LA Volume 33.20 mL LA Volume Index 11.69 mL/m2 (M/F) 16-34 EF AP4 58.90 % EF AP2 61.3 % EF BP 59.9 % GL Strain -22.5 % M-Mode Dimensions RVDd 4.02 cm (0.9-2.6) LA Diam 4.08 cm (1.9-4.0) LVDd 5.13 cm (3.5-5.7) LVDs 3.84 cm (3.5-5.7) IVSd 0.94 cm (0.6-1.1) PWd 0.94 cm (0.6-1.1) EF (Teich) 49.40% FS 25.10% EDV (Teich) 125.50 mL ESV (Teich) 63.50 mL LV Diastology E Decel Time 177 (160-240 msec) E/A Ratio 1.9 Mitral Valve MV E Max Jordi. 127.0 (40-130 cm/s) MV A Velocity 67.0 (40-130 cm/s) E/A Ratio 1.90 MV PHT 52.0 ms Left Ventricle The left ventricle is normal size. The left ventricular systolic function is normal. The left ventricular ejection fraction is within the normal range. There is normal left ventricular wall thickness. There is normal LV segmental wall motion. The left ventricular diastolic function is normal. LVEF is 60%. Right Ventricle The right ventricle is normal size. The right ventricular systolic function is normal. Atria The left atrium size is normal. The right atrium size is normal. There is no Doppler evidence of interatrial shunt. Aortic Valve The aortic valve opens well. There is no aortic valvular stenosis. Trace aortic regurgitation is present. Mitral Valve The mitral valve is normal in structure. No evidence of mitral valve stenosis. Trace mitral regurgitation. Tricuspid Valve Tricuspid valve is grossly normal in structure and function. Trace tricuspid regurgitation. There is insufficient jet to estimate RVSP. Pulmonic Valve The pulmonary valve is normal in structure. Trace pulmonic regurgitation. Great Vessels The aortic root is normal in size. IVC is normal in size and collapses >50% with inspiration. Pericardium There is no pericardial effusion. Other Information Study Quality: Fair Conclusion Normal biventricular systolic function. No significant valvular stenosis or regurgitation. Electronically signed by : Felicity Loya MD 07/10/2024 12:05:02
== END 2024-06-25 23:59 | disposition home or self-care (01) ==
LOC: RT 09:01
PROVIDERS: PCP Nurse Practitioner Family; Visit Provider Nurse Practitioner Family
DX: R06.02 Shortness of breath (principal); R60.9 Edema, unspecified
CPT/HCPCS: 93306

== ENCOUNTER 2024-07-24 12:58 | Outpatient (CLI) | payer OTHER, SELFPAY ==
--- NOTE | 2024-07-24 13:01 | XR_ITS ---
FINAL REPORT CLINICAL HISTORY: left knee pain COMPARISON: None FINDINGS: LEFT KNEE Five views of the left knee were obtained. There is no acute fracture or dislocation. Visualized joint spaces are normally aligned. Soft tissues are unremarkable. IMPRESSION: No acute bony abnormality. Reviewed, Interpreted and Dictated by Jorge Kemp MD Transcribed by Jessenia Romero Authenticated and [facility]
== END 2024-07-24 23:59 | disposition home or self-care (01) ==
LOC: RAD 12:59
PROVIDERS: PCP Nurse Practitioner Family; Visit Provider Physician Assistant
DX: M25.562 Pain in left knee (principal)
CPT/HCPCS: 73562

== ENCOUNTER 2024-08-16 16:22 | Outpatient (CLI) | payer OTHER, SELFPAY ==
[2024-08-16 12:45] LABS: Hemoglobin A1C 5.2 % (4.0-6.0)
[2024-08-16 13:03] LABS: 25-OH Vitamin D, Total 28.8 ng/mL (30-100)
[2024-08-16 13:12] LABS: Free T4 (Free Thyroxine) 0.68 ng/dl (0.78-2.19)
[2024-08-16 14:00] LABS: Intact Parathyroid Hormone 96.3 pg/mL (7.5-53.5)
[2024-08-16 14:19] LABS: Thyroid Stimulating Hormone 2.03 uIU/mL (0.465-4.68)
[2024-08-16 14:38] LABS: Vitamin B12 299 pg/mL (239-931)
[2024-08-17 09:23] LABS: Thyroid Peroxidase Antibodies 16 IU/mL (0-34); Triiodothyronine (T3) Free 2.8 pg/mL (2.0-4.4)
[2024-08-19 15:37] LABS: Calcium, Ionized 4.8 mg/dL (4.5-5.6); Thyroglobulin Level 1.9 IU/mL (0.0-0.9)
== END 2024-08-16 23:59 | disposition home or self-care (01) ==
LOC: LAB.DROPOF 16:22
PROVIDERS: PCP Nurse Practitioner Family; Visit Provider Nurse Practitioner Family
DX: E53.8 Deficiency of other specified B group vitamins (principal); E03.9 Hypothyroidism, unspecified; R79.89 Other specified abnormal findings of blood chemistry; R63.5 Abnormal weight gain; Z68.44 Body mass index [BMI] 60.0-69.9, adult
CPT/HCPCS: 82306; 82330; 82607; 83036; 83970; 84439; 84443; 84481; 86376; 86800

== ENCOUNTER 2024-08-20 09:34 | Outpatient (CLI) | payer OTHER, SELFPAY ==
--- NOTE | 2024-08-20 09:35 | US_ITS ---
FINAL REPORT TECHNIQUE: Sonographic images of the thyroid gland were obtained in the longitudinal and transverse planes. CLINICAL HISTORY: hypothyroidism, elevated PTH FINDINGS: The right lobe measures 4.0 x 1.5 x 1.8 cm. The right lobe is homogeneous. There is a 5 mm hyperechoic nodule consistent with TR 3. The left lobe measures 1.3 x 3.6 x 1.3 cm. The left lobe is homogeneous. There is a nodular contour along the inferior/posterior left thyroid favored to be normal lobulation of the thyroid rather than parathyroid adenoma. The isthmus measures 4 mm. This is normal. IMPRESSION: 1. TIRADS category 3 nodule right lobe. Based on size, there are no current recommendations regarding follow up. Reviewed, Interpreted and Dictated by Mica Burgess MD Transcribed by Mere Parikh Authenticated and [facility]
== END 2024-08-20 23:59 | disposition home or self-care (01) ==
LOC: RAD 09:35
PROVIDERS: PCP Nurse Practitioner Family; Visit Provider Nurse Practitioner Family
DX: E03.9 Hypothyroidism, unspecified (principal); R79.89 Other specified abnormal findings of blood chemistry
CPT/HCPCS: 76536

== ENCOUNTER 2024-09-04 16:46 | Outpatient (CLI) | payer OTHER, SELFPAY ==
[2024-09-04 12:31] LABS: Microscopic, Urine URINE MICROSCOPIC (MICROSCOPIC)
[2024-09-04 13:46] LABS: Appearance,Urine CLEAR (Clear); Bilirubin,Urine Negative (Negative); Blood, Urine 1+ (Negative); Color,Urine YELLOW (Yellow); Glucose,Urine (UA) Negative (Negative); Ketones,Urine Negative (Negative); Leukocyte Esterase,Urine 1+ (Negative); Nitrate,Urine Negative (Negative); PH,Urine 6.5 (5.0-8.5); Protein,Urine Negative (Negative); Urobilinogen,Urine 0.2 EU/dl (0.2)
[2024-09-04 14:08] LABS: Bacteria,Urine Trace /lpf; RBC,Urine Occasional #/hpf (0-3)
== END 2024-09-04 23:59 | disposition home or self-care (01) ==
LOC: LAB.DROPOF 16:46
PROVIDERS: PCP Nurse Practitioner Family; Visit Provider Nurse Practitioner Family
DX: R30.0 Dysuria (principal)
CPT/HCPCS: 81001; 87086; 87088; 87186

== ENCOUNTER 2024-09-27 10:32 | Outpatient (CLI) | payer OTHER, SELFPAY ==
--- NOTE | 2024-09-27 10:32 | NM_ITS ---
FINAL REPORT CLINICAL HISTORY: elevated PTH COMPARISON: None FINDINGS: 21.1 mci Technetium Sestamibi was administered. Planar imaging was performed early and two-hour delayed of the neck and upper thorax. Early imaging shows physiologic uptake within the upper neck involving the salivary glands and lower neck involving the thyroid gland. On delayed imaging there is no abnormal retained activity in the lower neck or mediastinum to localize parathyroid adenoma. IMPRESSION: No scintigraphic evidence of parathyroid adenoma. Reviewed, Interpreted and Dictated by Jorge Kemp MD Transcribed by Carmencita Valle Authenticated and . [facility]
[2024-09-27] MEDS: ISO TC99M (SESTAMIBI);1 DOSE VIAL IV (11:02)
[2024-09-27] MEDS: SODIUM CHLORIDE 0.9% 10ML SYR (RAD ONLY) 10 ML IV (11:02)
== END 2024-09-27 23:59 | disposition home or self-care (01) ==
LOC: RAD 10:32
PROVIDERS: PCP Nurse Practitioner Family; Visit Provider Nurse Practitioner Family
DX: R79.89 Other specified abnormal findings of blood chemistry (principal)
CPT/HCPCS: 78070; A9500

== ENCOUNTER 2024-10-02 16:21 | Outpatient (CLI) | payer OTHER, SELFPAY ==
[2024-10-02 17:21] LABS: Intact Parathyroid Hormone 81.7 pg/mL (7.5-53.5)
[2024-10-03 08:13] LABS: FSH 4.5 mIU/mL (.); LH 5.3 mIU/mL (.); Prolactin 14.7 ng/mL (4.8-33.4)
== END 2024-10-02 23:59 | disposition home or self-care (01) ==
LOC: LAB.DROPOF 16:22
PROVIDERS: PCP Nurse Practitioner Family; Visit Provider Nurse Practitioner Family
DX: N64.4 Mastodynia (principal); E03.9 Hypothyroidism, unspecified; R79.89 Other specified abnormal findings of blood chemistry; R63.5 Abnormal weight gain; Z68.44 Body mass index [BMI] 60.0-69.9, adult
CPT/HCPCS: 36415; 82670; 83001; 83002; 83970; 84146

== ENCOUNTER 2024-10-10 13:03 | Outpatient (CLI) | payer OTHER, SELFPAY ==
--- NOTE | 2024-10-10 13:30 | MM_ITS ---
PROCEDURE INFORMATION: Exam: MG Bilateral Diagnostic Breast Tomosynthesis Exam date and time: 10/10/2024 1:28 PM Age: 39 years old Clinical indication: Bilateral breast pain TECHNIQUE: Imaging protocol: Bilateral Diagnostic tomosynthesis and 2D mammography including computer-aided detection (CAD) when performed. Unilateral or bilateral exam. COMPARISON: 1. MG MM DIG SCREENING MAMM BI W/CAD 01/03/2024 9:37 AM 2. MG MM DIG SCREENING MAMM BI W/CAD 04/28/2022 9:46 AM FINDINGS: MAMMOGRAPHY: Breast composition: There are scattered areas of fibroglandular density. Breast mammogram findings: There is no stellate mass, architectural distortion or suspicious microcalcifications in either breast to suggest malignancy. No skin thickening or axillary adenopathy. IMPRESSION: No mammographic evidence of malignancy. If the breast pain is new and/or focal, patient should return for breast ultrasound. In the absence of suspicious clinical findings, annual bilateral mammographic screening is recommended unless otherwise clinically indicated. ASSESSMENT: BI-RADS Category 1: Negative.
== END 2024-10-10 23:59 | disposition home or self-care (01) ==
LOC: RAD 13:04
PROVIDERS: PCP Nurse Practitioner Family; Visit Provider Nurse Practitioner Family
DX: N64.4 Mastodynia (principal)
CPT/HCPCS: 77062; 77066; G0279

== ENCOUNTER 2024-11-05 09:58 | Outpatient (CLI) | payer OTHER, SELFPAY ==
--- NOTE | 2024-11-05 10:15 | XR_ITS ---
FINAL REPORT CLINICAL HISTORY: PRE OP BARIATRIC SURGERY/OBESITY COMPARISON: None FINDINGS: PA and lateral views of the chest are obtained. There is no prior exam for comparison. The cardiac and mediastinal silhouettes are within normal limits. The lungs are clear. There is no pleural effusion, pneumothorax, or acute osseous abnormality. IMPRESSION: No radiographic evidence of acute cardiac or pulmonary disease. Reviewed, Interpreted and Dictated by Mica Burgess MD Transcribed by Carmencita Valle Authenticated and [facility]
== END 2024-11-05 23:59 | disposition home or self-care (01) ==
LOC: RAD 09:59
PROVIDERS: PCP Nurse Practitioner Family; Visit Provider Family Medicine
DX: Z01.818 Encounter for other preprocedural examination (principal)
CPT/HCPCS: 71046

== ENCOUNTER 2025-02-07 10:15 | Outpatient (CLI) | payer OTHER, SELFPAY ==
[2025-02-07 11:14] LABS: Hematocrit 38.3 % (37.0-47.0); Hemoglobin 12.5 g/dL (12.2-16.2); Immature Granulocytes % 0.3 %; Mean Corpuscular HGB Conc 32.6 g/dL (31.8-35.4); Mean Corpuscular Hemoglobin 30.0 pg (27.0-31.2); Mean Corpuscular Volume 91.8 fl (81-99); Nucleated Red Blood Cells % 0 %; Platelet Count 237 K/mm3 (142-424); Red Blood Count 4.17 M/mm3 (4.20-5.40); Red Cell Distribution Width-SD 43.3 fL; White Blood Count 6.2 K/mm3 (4.8-10.8)
[2025-02-07 11:43] LABS: Alanine Aminotransferase 14 U/L (12-78); Albumin Level 4.1 g/dl (3.5-5.0); Albumin/Globulin Ratio 1.8 (1.1-1.8); Alkaline Phosphatase 94 U/L (38-126); Anion Gap 8.4 mEq/L (5-15); Aspartate Amino Transferase 21 U/L (14-36); Bilirubin,Total 0.5 mg/dl (0.2-1.3); Blood Urea Nitrogen 8 mg/dl (7-17); Calcium 9.2 mg/dl (8.4-10.2); Carbon Dioxide 31 mmol/L (22.0-30.0); Chloride 103 mmol/L (98-107); Creatinine,Serum 0.70 mg/dl (0.52-1.04); Estimated Glomerular Filt Rate 92 ml/min (>60); GFR (African American) 112 ML/MIN (>60); Globulin 2.3 g/dL (1.3-3.2); Glucose 96 mg/dl (74-100); Potassium 4.4 mmoL/L (3.5-5.1); Sodium 138 mmol/L (136-145); Total Protein,Serum 6.4 g/dl (6.3-8.2)
[2025-02-07 11:53] LABS: Hemoglobin A1C 5.4 % (4.0-6.0)
[2025-02-07 12:00] LABS: T4 (Thyroxine) 5.9 ug/dl (5.53-11.0)
[2025-02-07 12:01] LABS: Free T4 (Free Thyroxine) 0.69 ng/dl (0.78-2.19)
[2025-02-07 12:02] LABS: 25-OH Vitamin D, Total 27.2 ng/mL (30-100)
[2025-02-07 12:14] LABS: Thyroid Stimulating Hormone 4.23 uIU/mL (0.465-4.68)
[2025-02-07 12:34] LABS: Vitamin B12 453 pg/mL (239-931)
[2025-02-07 14:44] LABS: Ferritin 46.5 ng/ml (6.24-137)
[2025-02-08 08:16] LABS: Triiodothyronine (T3) Free 2.7 pg/mL (2.0-4.4)
--- OUTSIDE RECORDS SUMMARY | 2025-02-10 10:19 | XMS_ITS | Clinical Summary ---
Author Organization [employer] ([place], [place], [place], [place]) Address [address] [place] [address] Care Team Providers Care Climatologist Name Role Phone Otto Jamil MD Primary Care Provider Allergies Active Allergy Reactions Criticality Noted Date Comments Etonogestrel-Ethinyl Estradiol Swelling High 04/25 Fexofenadine Hcl Rash Low 04/25/2016 Fluconazole Hives High 04/25/2016 Penicillins Swelling High 04/25/2016 Medications Vraylar 1.5 mg capsule Take 1.5 mg by mouth daily. 04/26/2022 Active dicyclomine (BENTYL) 20 mg tablet Take 20 mg by mouth 4 (four) times daily. 02/03/2022 Active nitrofurantoin (MACRODANTIN) 50 MG capsule Take 50 mg by mouth daily. 04/14/2022 Active oxybutynin (DITROPAN-XL) 10 MG 24 hr tablet Take 10 mg by mouth daily. 02/23/2022 Active cyanocobalamin (VITAMIN B-12) 1,000 mcg/mL injection Inject intramuscul delilah. 05/04/2022 Active vilazodone (VIIBRYD) 40 mg tablet Take 40 mg by mouth daily. Active Active Problems Problem Noted Date Diagnosed Date Abnormal electroencephalogram (EEG) 05/29/2022 Nonepileptic episode 05/27/2022 Iron deficiency anemia due to chronic blood loss 09/28/2020 Iron malabsorption 09/28/2020 Vitamin B12 deficiency (dietary) anemia 09/29/19 21 Morbid obesity with BMI of 40.0-44.9, adult 08/04 Previous bariatric surgery affecting , antepartum 08/24/2020 Previous delivery affecting 0 08/24/2020 Antepartum multigravida of advanced maternal age 1206/05/2020 Dichorionic diamniotic twin , antepartu m 06/05/2020 Morbid obesity 06/05/2020 06/05/2020 Obesity affecting 04/25/2016 Polyhydramnios 04/25/2016 Immunizations Name Administration Dates Next Due Dtap,nos 11/28/1995, 5,01/03/1984,11/08/18 84,1983 MMR VACCINE (MMR II, PRIORIX ) (IMM44) 02/08/1995,12/15/1984 Polio, Nos 11/28/1995, 5,01/03/1984,11/08/18 84,1983 Tdap 07/23/2015 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 Relation Name Comments Heart disease Other Migraines Other Seizures Other Relation Name Status Comments Other 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 Tobacco Use Types Packs/Day Years Used Date Smoking Tobacco: Former Smokeless Tobacco: Never Alcohol Use Standard Drinks/Week Comments Never 0 (1 standard drink = 0.6 oz pur e alcohol) Food Insecurity Answer Date Recorded Food run out past 12 months Not on file 07/04 Food did not last past 12 months Not on file 07/22/2023 Employment Answer Date Recorded Help finding and keeping a job Not on file 0 07/22/2023 Family and Community Support Answer Jaime e Recorded Help with Day to Day Activities Not on file 07/22/2023 Feeling Lonely or Isolated Not on file 07/22 Educational Attainment Answer Date Naif rded Speak language other than [place] at home Not on file 07/22/2023 Want help with school or training Not on file 07/22/2023 Substance Use Answer Date Recorded Used prescription meds for non-medical reasons N ot on file 07/22/2023 Used illegal drugs past 12 months Not on file 07/22/2023 Comments Unknown Sex and Gender Information Value Date Recorded Sex Assigned at Not on file Legal Sex Female 12:57 PM CDT Gender Identity Not on file Sexual Orientation Not on file Last Filed Vital Signs Vital Sign Reading Time Taken Comments Blood Pressure 130/86 05/29/2022 9:00 AM EST Pulse 73 05/29/2022 9:00 AM EST Temperature 36.7 C (98.1 F) 05/27/2022 11:31 AM EST Respiratory Rate 16 05/29/2022 9:00 AM EST Oxygen Saturation 100% 05/29/2022 9:00 AM EST Inhaled Oxygen Concentration - - Weight 155.6 kg (343 lb) 05/12/2022 10:13 AM EST Height 175.3 cm (5' 9 ) 05/12/2022 10:13 AM EST Body Mass Index 50.65 05/12/2022 10:13 AM EST Plan of Treatment Health Maintenance Due Date Last Done Comments Depression Screening (12+) 1995 HIV Screening 1998 Hepatitis C Screening 2001 Lipid Panel 2003 Pap Smear 2004 Tobacco Cessation Counseling and Screening (12+) 05/12/2023 05/12/2022 Breast Cancer Screening 2023 COVID-19 VACCINE ( season) 2024 04/07/2021, 03/17/2021 Influenza Vaccine (#1) 2025 DTAP/TDAP/TD VACCINES (7 - Td or Tdap) 07/23/2025 07/23/2015, 11/28/1995, 02/08/1985, Additional history exists Pneumococcal Vaccine: 0-49 Years Aged Out No longer eligible based on patient's age to complete this topic Insurance * Guarantor: Malathi Schilling Account Type Relation to Patient Date of Phone Billing Address Personal/Family Self 1985 [address] [place] [address] [employer] [facility] Advance Directives For more information, please contact: [phone] * Full Code (Latest Code Status on File) Date Activated Date Inactivated Comments 05/27/2022 10:53 AM 05/29/2022 1:29 PM Care Teams Climatologist Relationship Specialty Start Date End Date Otto Jamil MD [address] [place] [address] [place] [address] PCP - General Adolescent Medicine 05/12/22
--- OUTSIDE RECORDS SUMMARY | 2025-02-10 10:19 | XMS_ITS | Referral Summary ---
Author Organization [employer] ([place], [place], [place], [place]) Address [address] [place] [address] Care Team Providers Care Barrel Racer Name Role Phone Otto Jamil MD Primary Care Provider [phone] Allergies Active Allergy Reactions Criticality Noted Date [...] Polio, Nos 11/28/1995, 5,01/03/1984,11/08/18 84,1983 Tdap 07/23/2015 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 Tobacco Use Types Packs/Day Years [...] Date Naif rded Speak language other than [place] at home Not on file 07/22/2023 Want [...] 05/12/2022 10:13 AM EST Plan of Treatment Not on file Insurance * Guarantor: Malathi Schilling Account Type Relation to Patient Date of Phone Billing Address Personal/Family Self [address] [place] [address] [employer] [facility] Advance Directives For more information, please contact: [phone] * Full Code (Latest Code Status on File) Date Activated Date Inactivated Comments 05/27/2022 10:53 AM 05/29/2022 1:29 PM Care Teams Barrel Racer Relationship Specialty Start Date End Date Otto Jamil MD [address] [place] [address] [place] [address] PCP - General Adolescent Medicine 05/12/22
--- OUTSIDE RECORDS SUMMARY | 2025-02-10 10:19 | XMS_ITS | Encounter Summary ---
Author Organization [facility] Address [address] [place] [address] Care Team Providers Care Vinyl Top Installer Name Role Phone Malinda Thompson COMMUNITY HEALTH PROGRAM REPRESENTATIVE Primary Care Provider [phone] Encounter Details Date Type Department Care Team (Late Contact Info) Description 06/07/2022 [facility] [address] [place] [address] Denisse Dumont APRN [address] [place], [place] [id number] Intractable migraine without aura and without status migrainosus (Primary Dx); Spell of abnormal behavior; Unspecified papilledema; Memory loss 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 Tobacco Use Types Packs/Day Years Used Date Smoking Tobacco: Never Assessed Comments Unknown Sex and Gender Information Value Date Recorded Sex Assigned at Not on file Legal Sex Female 7:55 PM EDT Gender Identity Not on file Sexual Orientation Not on file documented as of this encounter Plan of Treatment Upcoming Encounters Date Type Department Care Team (Late st Contact Info) Description 02/13/2025 3:40 PM EDT Office Visit [facility] Endocrinology [address] [place] [address] Jose Angel Whalen MD [address] [address] documented as of this encounter Visit Diagnoses Diagnosis Intractable migraine without aura and without status migrainosus- Primary Spell of abnormal behavior Unspecified papilledema Memory loss documented in this encounter Care Teams Vinyl Top Installer Relationship Specialty Start Date End Date Malinda Thompson APRN [address] [place] [address] PCP - General 10/04/24 documented as of this encounter
--- OUTSIDE RECORDS SUMMARY | 2025-02-10 10:20 | XMS_ITS | Encounter Summary ---
Author Organization [facility] Address [address] [place] [id number] Care Team Providers Care Brick Grader Name Role Phone Malinda Thompson APRN Primary Care Provider [phone] Encounter Details Date Type Department Care Team (Late st Contact Info) Description 07/26/2022 [facility] [address] [place] [address] Denisse Dumont APRN [address] [place], [place] [id number] Papilledema (Primary Dx); Unspecified visual disturbance; Benign intracranial hypertension 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 Tobacco Use Types Packs/Day Years [...] Description 02/13/2025 3:40 PM EDT Office Visit [facility] Endocrinology [address] [place] [address] Jose Angel Whalen MD [address] [address] documented as of this encounter Visit Diagnoses Diagnosis Papilledema- Primary Unspecified papilledema Unspecified visual disturbance Benign intracranial hypertension documented in this encounter Care Teams Brick Grader Relationship Specialty Start Date End Date Malinda Thompson APRN [address] [facility] [place] [address] PCP - General 10/04/24 documented as of this encounter
--- OUTSIDE RECORDS SUMMARY | 2025-02-10 10:20 | XMS_ITS | Clinical Summary ---
Author Organization [facility] Address [address] [place] [address] Care Team Providers Care Flat Bed Knitter Name Role Phone Cody Rausch MD Primary Care Provider [phone] Allergies Active Allergy Reactions Criticality Noted Date Comments Fluconazole Hives High 04/25/2016 Ethinyl Estradiol Other (See Comments) 12/20/19 23 Etonogestrel Other (See Comments) 12/19/2022 Guaifenesin Rash Low 12/19/2022 Fexofenadine Hcl Rash Low 04/25/2016 Etonogestrel-Ethinyl Estradiol Swelling High 04/25 Penicillins Swelling High 04/25/2016 Sulfa Antibiotics Rash Low 04/25/2016 Trimethoprim Rash Low 12/19/2022 Medications Vit-Fe Fumarate-FA ( 27-1) 27-1 MG tablet tablet Take 1 tablet by mouth Daily. Active vitamin D (ERGOCALCIFEROL ) 1.25 MG (41177 UT) capsule capsule Take 1 capsule by mouth 1 (One) Time Per Week. Active SUMAtriptan (IMITREX) 100 MG tablet 2 Active Trintellix 20 MG tablet 2 Active busPIRone (BUSPAR) 15 MG tablet Take 1 tablet by mouth 2 (Two) Times a Day. 2 Active vilazodone (VIIBRYD) 40 MG tablet tablet Take 1 tablet by mouth Daily. 2 Active Vraylar 3 MG capsule capsule Take 1 capsule by mouth Daily. 3 Active B-D 3CC LUER-UMA SYR 23GX1 23G X 1 3 ML misc EVERY 14 DAYS WITH B-12 INJECTION 1 each 3 3 Active levothyroxine (SYNTHROID, LEVOTHROID) 50 MCG tablet Take 1 tablet by mouth Daily. 30 tablet 5 4 Active cyanocobalamin 1000 MCG/ML injectionIndica tions:Iron deficiency anemia due to chronic blood loss,Vitamin B12 deficiency (dietary) anemia 1 ml weekly x 4 then every 2 weeks 10 mL 2 4 Active Viberzi 100 MG tablet TAKE 1 TABLET BY MOUTH TWICE DAILY MUST ADMINISTER WITH A MEAL/FOOD 5 Active rosuvastatin (CRESTOR) 40 MG tablet 5 Active Active Problems Problem Noted Date Diagnosed Date Iron deficiency anemia due to chronic blood loss 09/28/2020 Iron malabsorption 09/28/2020 Vitamin B12 deficiency (dietary) anemia 09/29/19 21 Morbid obesity with BMI of 40.0-44.9, adult 08/04 Previous bariatric surgery affecting , antepartum 08/24/2020 Previous delivery affecting 0 08/24/2020 Morbid obesity 06/05/2020 Dichorionic diamniotic twin , antepartu m 06/05/2020 06/05/2020 Antepartum multigravida of advanced maternal age 1206/05/2020 Obesity affecting 04/25/2016 Polyhydramnios 04/25/2016 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 Tobacco Use Types Packs/Day Years Used Date Smoking Tobacco: Former Cigarettes Q uit: 2002 Smokeless Tobacco: Never Tobacco Cessation:Counseling Given: Not Answered Alcohol Use Standard Drinks/Week Comments No 0 (1 standard drink = 0.6 oz pur e alcohol) PHQ-2 Answer Date Recorded Retired PHQ-9: Brief Depression Severity Measure Score 0 08/17/2022 PHQ-2 Answer Date Recorded Patient Health Questionnaire-2 Score 1 11/04/2024 Comments Unknown Sex and Gender Information Value Date Recorded Sex Assigned at Not on file Legal Sex Female 1:28 PM EDT Gender Identity Not on file Sexual Orientation Not on file Last Filed Vital Signs Vital Sign Reading Time Taken Comments Blood Pressure 131/78 11/04/2024 12:57 PM EDT Pulse 60 11/04/2024 12:57 PM EDT Temperature 36.2 C (97.1 F) 11/04/2024 12:57 PM EDT Respiratory Rate 16 11/04/2024 12:57 PM EDT Oxygen Saturation 96% 11/04/2024 12:57 PM EDT Inhaled Oxygen Concentration - - Weight 192 kg (424 lb) 11/04/2024 12:57 PM EDT Height 175.3 cm (5' 9 ) 11/04/2024 12:57 PM EDT Body Mass Index 62.61 11/04/2024 12:57 PM EDT Plan of Treatment Upcoming Encounters Date Type Department Care Team (Late st Contact Info) Description 05/16/2025 1:00 PM EST Office Visit [facility] HEMATOLOGY & [facility]COLOGY [address] [facility] [address] [place] [address] Lakisha Graff, DAYTIME BABYSITTER [address] [facility] [address] [place] [address] Health Maintenance Due Date Last Done Comments Annual Gynecologic Pelvic an d Breast Exam 1985 PAP SMEAR 2004 ANNUAL PHYSICAL 04/25/2016 HEPATITIS C SCREENING 04/25/2016 MAMMOGRAM 2023 COVID-19 Vaccine (2023-2 5 season) 2024 04/07/2021, 03/17/2021 INFLUENZA VACCINE 04/02/2025 TDAP/TD VACCINES (2 - Td or Tdap) 07/23/2025 07/23/2015 Pneumococcal Vaccine 0-49 Aged Out No longer eligible based on patient's age to complete this topic Insurance [facility] Care Teams Flat Bed Knitter Relationship Specialty Start Date End Date Cody Rausch MD [address] [facility] [address] [facility] [place] [address] PCP - General Obstetrics and Gynecology 09/28/20
--- OUTSIDE RECORDS SUMMARY | 2025-02-10 10:20 | XMS_ITS | Patient Health Record ---
Author Organization [facility] Address [address] [facility] [address] [place] [address] Care Team Providers Care Cheesemaking Laborer Name Role Phone Mikaela Robertson Unavailable [phone] Reason For Referral No Information 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 Sexual History: Social Info Question Answer Notes Sexual History Had sex in the past 12 months (vaginal, oral, or anal)? Yes Drugs/Alcohol: Social Info Question Answer Notes Drugs Have you used drugs other than those for medical reasons in the past 12 months? No Alcohol Screen Did you have a drink containing alcohol in the past year? Yes Points 0 Interpretation Negative Tobacco Use: Social Info Question Answer Notes Tobacco Use/Smoking Are you a former smoker Tobacco use other than smoking: Are you an other tobac co user? No Plan Of Treatment No Information
--- OUTSIDE RECORDS SUMMARY | 2025-02-10 10:20 | XMS_ITS | Patient Health Record ---
Author Organization [facility] Address [address] [place] [id number] Care Team Providers Care Geodetic Surveyor Name Role Phone Unknown, PCP Primary Care Provider Unavailabl e Reason For Referral No Information Plan Of Treatment No Information Insurance Providers Payer Name Payer Address Payer Phone Subscriber Number Group Number Insured Name Patient Relationship to Insured Coverage Start Date Coverage End Date PROMPT PAY/Bill to Patient Malathi Schilling Self - patient is the insured
--- OUTSIDE RECORDS SUMMARY | 2025-02-10 10:20 | XMS_ITS | Clinical Summary ---
Author Organization [facility] Address [address] [facility] [address] [place] [address] Care Team Providers Care Ceramic Products Sales Engineer Name Role Phone Otto Jamil MD Primary Care Provider + [phone] Lashae Sanchez MD Unavailable [phone] Allergies Active Allergy Reactions Criticality Noted Date Comments Etonogestrel-Ethinyl Estradiol Swelling High 04/25 Fexofenadine Hcl Rash Low 04/25/2016 Fluconazole Hives High 04/25/2016 Penicillins Swelling High 04/25/2016 Sulfa Antibiotics Rash Low 04/25/2016 Medications acetaZOLAMIDE (Diamox) 250 MG tablet 3 Active Vraylar 3 MG capsule 3 Active cyanocobalamin (Vitamin B-12) 1000 MCG/ML injection Inject 1,000 mcg into the shoulder, thigh, or buttocks every 14 (fourteen) days. 2 Active cyclopentolate (Cyclogyl) 1 % ophthalmic solution 12/06/19 2 3 Active Aimovig 140 MG/ML solution auto-injector 3 Active doxepin (SINEquan) 25 MG capsule 3 Active erythromycin (Romycin) 5 MG/GM ophthalmic ointment 12/06/19 2 3 Active ketotifen (Zaditor) 0.025 % ophthalmic solution 3 Active nitrofurantoin (Macrodantin) 50 MG capsule 3 Active oxybutynin XL (Ditropan-XL) 10 MG 24 hr tablet 3 Active rizatriptan ELECTRIC RANGE PREPARER (Maxalt-ELECTRIC RANGE PREPARER) 10 MG disintegrating tablet 2 Active B-D 3CC LUER-UMA SYR 23GX1 23G X 1 3 ML misc 3 Active tolterodine LA (Detrol LA) 4 MG 24 hr capsule 3 Active Ubrelvy 100 MG tablet 3 Active vilazodone (Viibryd) 40 mg tablet 2 Active Active Problems Problem Noted Date Diagnosed Date 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 Tobacco Use Types Packs/Day Years Used Date Smoking Tobacco: Former Cigarettes Smokeless Tobacco: Never Tobacco Cessation:Counseling Given: Not Answered Comments Unknown Sex and Gender Information Value Date Recorded Sex Assigned at Not on file Legal Sex Female 7:31 AM EST Gender Identity Not on file Sexual Orientation Not on file Plan of Treatment Health Maintenance Due Date Last Done Comments HIV Screening 1983 Hepatitis C Screening 1983 Lipid Panel 1983 MMR Vaccines (1 of 1 - Standard series) 1984 BMI Intervention 1989 Varicella Vaccines (1 of 2 - 13+ 2-dose series) 1996 Diabetes Screening 2001 Hepatitis B Screening 2001 DTaP/Tdap/Td Vaccines (1 - Tdap) 2002 Hepatitis B Vaccines (1 of 3 - 19+ 3-dose series) 2002 Pap Smear 2004 Cervical Cancer Screening 2013 HPV/Cotest 2013 Mammogram 2023 COVID-19 Vaccine (3 - 2023-2 5 season) 2024 04/07/2021, 03/17/2021 Depression Risk Screening 07/03/2024 SDOH Screening 07/03/2024 Influenza Vaccine (#1) 2025 Zoster Vaccines (1 of 2) 2033 HIB Vaccines Aged Out No longer eligi ble based on patient's age to complete this topic HPV Vaccines Aged Out No longer eligi ble based on patient's age to complete this topic Hepatitis A Vaccines Aged Out No long er eligible based on patient's age to complete this topic IPV Vaccines Aged Out No longer eligi ble based on patient's age to complete this topic Meningococcal B Vaccine Aged Out No l onger eligible based on patient's age to complete this topic Meningococcal Vaccine Aged Out No jennifer len eligible based on patient's age to complete this topic Pneumococcal Vaccine Aged Out No long er eligible based on patient's age to complete this topic Rotavirus Vaccines Aged Out No longer eligible based on patient's age to complete this topic Insurance AETNA [facility] Care Teams Ceramic Products Sales Engineer Relationship Specialty Start Date End Date Otto Jamil MD [address] [place] [address] PCP - General Adolescent Medicine 12/12/22 Lashae Sanchez MD [address] [place] [address] Referring Physician Retina Ophthalmology 12/12/22
--- OUTSIDE RECORDS SUMMARY | 2025-02-10 10:20 | XMS_ITS | Clinical Summary ---
Author Organization [facility] Address [address] [place] [address] Care Team Providers Care Hardwood Floor Installer Name Role Phone Malinda Thompson GOMEZ Primary Care Provider [phone]- [phone] Allergies Active Allergy Reactions Criticality Noted Date Comments Ethinyl Estradiol Other - please docum ent in the comment field Low 12/19/2022 Etonogestrel Other - please docum ent in the comment field Low 12/19/2022 Etonogestrel-Ethinyl Estradiol Rash,Swelling High 04/25/2016 Fexofenadine Hcl Rash Low 04/25/2016 Fluconazole Hives,Rash High 04/25/2016 Guaifenesin Rash Low 12/19/2022 Penicillins Anaphylaxis,Shortnes s of breath,Swelling High 04/25/2016 Sulfa Drugs Rash Low 04/25/2016 Trimethoprim Rash Low 12/19/2022 Medications busPIRone (Buspar) 10 MG tablet 5 Active Vraylar 3 MG capsule 5 Active cetirizine (ZyrTEC) 10 MG tablet 4 Active Vitamin D3 1.25 MG (84487 UT) capsule 5 Active cyanocobalamin (Vitamin B-12) 1000 MCG/ML injection 1 ml weekly x 4 then every 2 weeks 4 Active dicyclomine (Bentyl) 20 MG tablet 4 Active Viberzi 100 MG tablet TAKE 1 TABLET BY MOUTH TWICE DAILY MUST ADMINISTER WITH A MEAL/FOOD 5 Active ergocalciferol 1.25 MG (30949 UT) capsule Take 1 capsule by mouth every 7 days. Active fluticasone (Flonase) 50 MCG/ACT nasal spray 4 Active levothyroxine (Synthroid, Levoxyl) 50 MCG tablet Take 1 tablet by mouth 1 time each day. 4 Active nitrofurantoin (Macrodantin) 50 MG capsule 5 Active 27-1 MG tablet Take 1 tablet by mouth 1 time each day. Active B-D 3CC LUER-UMA SYR 25GX1 25G X 1 3 ML misc 4 Active Ubrelvy 100 MG tablet 5 Active vilazodone (Viibryd) 40 mg tablet Take 1 tablet by mouth 1 time each day. Active Active Problems No known active problems Immunizations Immunization Administration Dates Next Due DTaP, Unspecified 11/28/1995,02/08/1985,01/02/19 84,1983,1983 MMR 02/08/1995,12/15/1984 Polio, Unspecified 11/28/1995,02/08/1985, 984,1983,1983 Tdap 07/23/2015 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 Relation Name Comments Emphysema Mother Relation Name Status Comments Mother 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 Tobacco Use Types Packs/Day Years Used Date Smoking Tobacco: Former Cigarettes 1 2 2 - 2002 Passive Smoke Exposure: Past Smokeless Tobacco: Never Alcohol Use Standard Drinks/Week Comments Never 0 (1 standard drink = 0.6 oz pur e alcohol) PHQ-2 Answer Date Recorded Patient Health Questionnaire-2 Score 0 10/28/2024 PHQ-9 Answer Date Recorded Patient Health Questionnaire-9 Score 0 10/28/2024 Comments No Sex and Gender Information Value Date Recorded Sex Assigned at Not on file Legal Sex Female 7:55 PM EDT Gender Identity Not on file Sexual Orientation Not on file Last Filed Vital Signs Vital Sign Reading Time Taken Comments Blood Pressure 138/83 10/28/2024 2:09 PM EDT Pulse 58 10/28/2024 2:09 PM EDT Temperature 36.4 C (97.5 F) 10/28/2024 2:09 PM EDT Respiratory Rate 16 10/28/2024 2:09 PM EDT Oxygen Saturation 97% 10/28/2024 2:09 PM EDT RA Inhaled Oxygen Concentration - - Weight 194 kg (426 lb 13 oz) 10/28/2024 2:09 PM EDT Height 175.3 cm (5' 9 ) 10/28/2024 2:09 PM EDT Body Mass Index 63.03 10/28/2024 2:09 PM EDT Plan of Treatment Upcoming Encounters Date Type Department Care Team (Late st Contact Info) Description 02/13/2025 3:40 PM EDT [facility] [address] [place] [address] Jose Angel Whalen MD [address] [place] [address] Health Maintenance Due Date Last Done Comments [facility]-HIV Screening 1983 [facility]-Hepatitis C Screening 1983 [facility]-Infant/Child/Adol SDOH Screenings 1983 [facility]-Varicella Vaccines (1 of 2 - 13+ 2-dose series) 1996 [facility]- SDOH Screenings 2001 [facility]-Adult SDOH Screenings 2001 UK[facility]-Hepatitis B Vaccines (1 of 3 - 19+ 3-dose series) 2002 [facility]-Pap Smear 2004 HPV Vaccines (1 - 3-dose SCDM series) 2010 [facility]-Cervical Cancer Screening 2013 [facility]-HPV/Cotest 2013 [id number] Vaccine (3 - Pfizer risk series) 05/05/2021 04/07/2021, 03/17/2021 [facility]-Influenza Vaccine (#1) 2025 [facility]-DTaP,Tdap,and Td Vaccines (7 - Td or Tdap) 07/23/2025 07/23/2015, 11/28/1995, 02/08/1985, Additional history exists [facility]-Depression Screening 10/28/2025 10/28/2024, 10/02 [facility]-Zoster Vaccines (1 of 2) 2033 [facility]-IPV Vaccines Aged Out 11/28/1995, 03/1985, 01/03/1984, Additional history exists No longer eligible based on patient's age to complete this topic [facility]-Obesity Intervention Completed 10/28/2024 [facility]-HIB Vaccines Aged Out No longer e ligible based on patient's age to complete this topic [facility]-Hepatitis A Vaccines Aged Out No longer eligible based on patient's age to complete this topic [facility]-Pneumococcal Vaccine: Pediatrics (0 to 5 Years) and At-Risk Patients (6 to 49 Years) Aged Out No longer eligible based on patient's age to complete this topic [facility]-Rotavirus Vaccines Aged Out No lo nger eligible based on patient's age to complete this topic Insurance [employer] Care Teams Hardwood Floor Installer Relationship Specialty Start Date End Date Malinda Thompson APRN [address] [place] [id number] PCP - General 10/04/24
--- OUTSIDE RECORDS SUMMARY | 2025-02-10 10:20 | XMS_ITS | Encounter Summary ---
Author Organization [facility] Address 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); Unspecified mood (affective) disorder (CMS/HCC); Other amnesia; Papilledema 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 Tobacco Use Types Packs/Day Years [...] 02/13/2025 3:40 PM EDT Office Visit [facility] [address] [place] [address] Jose Angel Whalen MD [address] [address] documented as of this encounter Visit Diagnoses Diagnosis Migraine without aura, intractable- Primary Change in behavior 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
== END 2025-02-07 23:59 | disposition home or self-care (01) ==
LOC: LAB.DROPOF 02-10 10:15
PROVIDERS: PCP Nurse Practitioner Family; Visit Provider Nurse Practitioner Family
DX: G47.33 Obstructive sleep apnea (adult) (pediatric) (principal); E53.8 Deficiency of other specified B group vitamins; R63.5 Abnormal weight gain; E03.9 Hypothyroidism, unspecified; R79.89 Other specified abnormal findings of blood chemistry
CPT/HCPCS: 80053; 82306; 82607; 82728; 83036; 83970; 84436; 84439; 84443; 84481; 85025

== ENCOUNTER 2025-03-17 16:05 | Outpatient (CLI) | payer OTHER, SELFPAY ==
--- NOTE | 2025-03-17 16:08 | XR_ITS ---
PROCEDURE INFORMATION: Exam: XR Right Knee Exam date and time: 03/17/2025 4:38 PM Age: 39 years old Clinical indication: Pain; Knee; Right; Additional info: Right knee pain, nki TECHNIQUE: Imaging protocol: Radiologic exam of the right knee. Views: 3 views. COMPARISON: No relevant prior studies available. FINDINGS: Bones/joints: Mild Tricompartmental joint space narrowing and osteophyte formation consistent with degenerative changes. There is no evidence of acute fracture.There is no evidence of malalignment or dislocation. Soft tissues: Normal. IMPRESSION: There is no evidence of acute fracture.There is no evidence of malalignment or dislocation.
--- OUTSIDE RECORDS SUMMARY | 2025-03-17 16:09 | XMS_ITS | Encounter Summary ---
Author Organization [facility] Address [address] [place] [address] Care Team Providers Care Information Technology Architect Name Role Phone Malinda Thompson SUPERVISOR UNLOADING Primary Care Provider +1- [phone] Encounter Details Date Type Department Care Team (Late st Contact Info) Description 06/07/2022 [facility] [address] [place] [address] Denisse Dumont APRN [address] [place], [place] [id number] Intractable migraine without aura and without status [...] Care Team (Late st Contact Info) Description 04/03/2025 3:40 PM EDT Office Visit [facility] Endocr[facility]ology [address] [place] [address] Marilu Sifuentes PA [address] [facility] [address] [place] [address] documented as of this encounter Visit Diagnoses Diagnosis Intractable migraine without aura and without status migrainosus- Primary Spell of abnormal behavior Unspecified papilledema Memory loss documented in this encounter Care Teams Information Technology Architect Relationship Specialty Start Date End Date Malinda Thompson APRN [address] [place] [address] PCP - General 10/04/24 documented as of this encounter
--- OUTSIDE RECORDS SUMMARY | 2025-03-17 16:09 | XMS_ITS | Referral Summary ---
Author Organization [employer] ([place], [place], [place], [place]) Address [address] [place] [address] Care Team Providers Care Crew Manager Name Role Phone Otto Jamil MD Primary [...] 06/05/2020 Obesity affecting 04/25/2016 Polyhydramnios 04/25/2016 Immunizations Immunization Administration Dates Next Due Dtap,nos 11/28/1995, 5,01/03/1984,1983,1983 MMR VACCINE (MMR II, PRIORIX) ([id number]) 02/08/1995 ,12/15/1984 Polio, Nos 11/28/1995, 5,01/03/1984,1983,1983 Tdap 07/23/2015 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 Tobacco Use Types [...] Date Naif rded Speak language other than Mauritanian at home Not on file 07/22/2023 Want [...] Self 1985 [address] [place] [address] AETNA [facility] Advance Directives For more information, please contact: [phone] * Full Code (Latest Code Status on File) Date Activated Date Inactivated Comments 05/27/2022 10:53 AM 05/29/2022 1:29 PM Care Teams Crew Manager Relationship Specialty Start Date End Date Otto Jamil MD [address] [place] [address] [place] [address] PCP - General Adolescent Medicine 05/12/22
--- OUTSIDE RECORDS SUMMARY | 2025-03-17 16:09 | XMS_ITS | Clinical Summary ---
Author Organization [employer] ([place], [place], [place], [place]) Address [address] [place] [address] Care Team Providers Care Job Recruiter Name Role Phone Otto Jamil MD Primary [...] ,12/15/1984 Polio, Nos 11/28/1995, 5,01/03/1984,1983,1983 Tdap 07/23/2015 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 Relation [...] Date Naif rded Speak language other than Singaporean at home Not on file 07/22/2023 Want [...] 05/12/2022 Breast Cancer Screening 2023 COVID-19 VACCINE (3 - season) 2025 04/07/2021, 03/17/2021 Influenza Vaccine (#1) 2025 DTAP/TDAP/TD VACCINES (7 - Td or Tdap) 07/23/2025 07/23/2015, 11/28/1995, 02/08/1985, Additional history exists Pneumococcal Vaccine: 0-49 Years Aged Out No longer eligible based on patient's age to complete this topic Insurance * Guarantor: Malathi Schilling Account Type Relation to Patient Date of Phone Billing Address Personal/Family Self 1985 [address] [place] [address] AETNA [facility] Advance Directives For more information, please contact: [phone] * Full Code (Latest Code Status on File) Date Activated Date Inactivated Comments 05/27/2022 10:53 AM 05/29/2022 1:29 PM Care Teams Job Recruiter Relationship Specialty Start Date End Date Otto Jamil MD [address] [place] [address] [place] [address] PCP - General Adolescent Medicine 05/12/22
--- OUTSIDE RECORDS SUMMARY | 2025-03-17 16:09 | XMS_ITS | Clinical Summary ---
Author Organization [facility] Address [address] [place] [address] Care Team Providers Care Offset Lithographic Press Operator Name Role Phone Cody Rausch MD Primary Care Provider [phone] Allergies Active Allergy Reactions Criticality Noted Date [...] Active vitamin D (ERGOCALCIFEROL ) 1.25 MG (59581 UT) capsule capsule Take 1 capsule by [...] Description 05/16/2025 1:00 PM EST Office Visit [facility] [address] [facility] [address] [place] [address] Lakisha Graff, AIRFRAME AND POWER PLANT MECHANIC [address] [facility] [address] [place] [address] Health Maintenance Due Date Last Done Comments Annual Gynecologic Pelvic an d Breast Exam 1983 PAP SMEAR 2004 ANNUAL PHYSICAL 04/25/2016 HEPATITIS C SCREENING 04/25/2016 MAMMOGRAM 2023 COVID-19 Vaccine ( - 2024-2 6 season) 2025 04/07/2021, 03/17/2021 INFLUENZA VACCINE 04/02/2025 TDAP/TD VACCINES (2 - Td or Tdap) 07/23/2025 07/23/2015 Pneumococcal Vaccine 0-49 Aged Out No longer eligible based on patient's age to complete this topic Insurance [facility] Care Teams Offset Lithographic Press Operator Relationship Specialty Start Date End Date Cody Rausch MD [address] [facility] [address] [facility] [place] [address] PCP - General Obstetrics and Gynecology 09/28/20
--- OUTSIDE RECORDS SUMMARY | 2025-03-17 16:10 | XMS_ITS | Clinical Summary ---
Author Organization [facility] Address [address] [place] [address] Care Team Providers Care Worldwide Chief Creative Officer Name Role Phone Otto Jamil MD Primary Care Provider [phone] Lashae Sanchez MD Unavailable [phone] Allergies Active Allergy Reactions Criticality Noted Date [...] MG 24 hr tablet 3 Active rizatriptan DIRECTOR OF REVENUE (Maxalt-DIRECTOR OF REVENUE) 10 MG disintegrating tablet 2 Active B-D [...] Cancer Screening 2013 HPV/Cotest 2013 Mammogram 2023 Depression Risk Screening 07/03/2024 SDOH Screening 07/03/2024 COVID-19 Vaccine (3 - 2024-2 6 season) 2025 04/07/2021, 03/17/2021 Influenza Vaccine (#1) 2025 Zoster Vaccines (1 [...] age to complete this topic Insurance AETNA [facility] Care Teams Worldwide Chief Creative Officer Relationship Specialty Start Date End Date Otto Jamil MD [address] [place] [address] PCP - General Adolescent Medicine 12/12/22 Lashae Sanchez MD [address] [place] [address] Referring Physician Retina Ophthalmology 12/12/22
--- OUTSIDE RECORDS SUMMARY | 2025-03-17 16:10 | XMS_ITS | Patient Health Record ---
Author Organization [facility] Address [address] [facility] [address] [place] [address] Care Team Providers Care Assignment Clerk Name Role Phone Mikaela Robertson Unavailable [phone] Reason For Referral No Information 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 [...]
--- OUTSIDE RECORDS SUMMARY | 2025-03-17 16:10 | XMS_ITS | Clinical Summary ---
Author Organization [facility] Address [address] [place] [address] Care Team Providers Care Car Loader Name Role Phone Malinda Thompson GOMEZ Primary Care Provider [phone] Allergies Active Allergy Reactions Criticality Noted Date [...] tablet 4 Active Vitamin D3 1.25 MG (76677 UT) capsule 5 Active cyanocobalamin (Vitamin B-12) 1000 MCG/ML injection 1 ml weekly x 4 then every 2 weeks 4 Active dicyclomine (Bentyl) 20 MG tablet 4 Active Viberzi 100 MG tablet TAKE 1 TABLET BY MOUTH TWICE DAILY MUST ADMINISTER WITH A MEAL/FOOD 5 Active ergocalciferol 1.25 MG (01351 UT) capsule Take 1 capsule by mouth [...] Description 04/03/2025 3:40 PM EDT [facility] [address] [place] [address] Marilu Sifuentes PA [address] [place] [address] Health Maintenance Due Date Last [...] 2010 [facility]-Cervical Cancer Screening 2013 [facility]-HPV/Cotest 2013 [id number] Vaccine (3 - Pfizer risk series) 05/05/2021 [...] Insurance [employer] Care Teams Car Loader Relationship Specialty Start Date End Date Malinda Thompson APRN [address] [id number] PCP - General 10/04/24
--- OUTSIDE RECORDS SUMMARY | 2025-03-17 16:10 | XMS_ITS | Encounter Summary ---
Author Organization [facility] Address [address] [place] [address] Care Team Providers Care Services Rep Name Role Phone Malinda Thompson TRAILER TECHNICIAN Primary Care Provider [phone]- [phone] Encounter Details Date Type Department Care Team (Late st Contact Info) Description 07/01/2022 [facility] [address] [place] [address] Denisse Dumont APRN [address] [place] [address] Migraine without aura, intractable (Primary Dx); Change [...] 04/03/2025 3:40 PM EDT Office Visit [facility] [address] [place] [address] Marilu Sifuentes PA [address] [place] [address] documented as of this encounter Visit Diagnoses Diagnosis Migraine without aura, intractable- Primary Change in behavior 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
--- OUTSIDE RECORDS SUMMARY | 2025-03-17 16:10 | XMS_ITS | Patient Health Record ---
Author Organization [facility] Address [address] [place] [id number] Care Team Providers Care Therapeutic Radiologist Name Role Phone Unknown, PCP Primary Care Provider Unavailabl e Reason For Referral No Information Plan Of Treatment No Information Insurance Providers Payer Name Payer Address Payer Phone Subscriber Number Group Number Insured Name Patient Relationship to Insured Coverage Start Date Coverage End Date PROMPT PAY/Bill to Patient Malathi Schilling Self - patient is the insured
--- OUTSIDE RECORDS SUMMARY | 2025-03-17 16:10 | XMS_ITS | Encounter Summary ---
Author Organization [facility] Address [address] [id number] Care Team Providers Care Research Test Engine Operator Name Role Phone Malinda Thompson APRN Primary Care Provider [phone]- [phone] Encounter Details Date Type Department Care Team (Late st Contact Info) Description 07/26/2022 [facility] [address] [place] [address] Denisse Dumont APRN [address] [place], [place] [id number] Papilledema (Primary Dx); Unspecified visual disturbance; Benign [...] Description 04/03/2025 3:40 PM EDT Office Visit [facility] Endocrinology [address] [place] [address] Marilu Sifuentes PA [address] [facility] [address] [place] [address] documented as of this encounter Visit Diagnoses Diagnosis Papilledema- Primary Unspecified papilledema Unspecified visual disturbance Benign intracranial hypertension documented in this encounter Care Teams Research Test Engine Operator Relationship Specialty Start Date End Date Malinda Thompson APRN [address] [place] [address] PCP - General 10/04/24 documented as of this encounter
== END 2025-03-17 23:59 | disposition home or self-care (01) ==
LOC: RAD 16:06
PROVIDERS: PCP Nurse Practitioner Family; Visit Provider Physician Assistant
DX: M17.11 Unilateral primary osteoarthritis, right knee (principal)
CPT/HCPCS: 73562

== ENCOUNTER 2025-04-01 10:18 | Outpatient (CLI) | payer OTHER, SELFPAY ==
--- OUTSIDE RECORDS SUMMARY | 2025-04-01 10:20 | XMS_ITS | Encounter Summary ---
Author Organization [facility] Address [address] [place] [address] Care Team Providers Care An/Ssn 2 4 Operator Name Role Phone Malinda Thompson APRN Primary Care Provider [phone]- [phone] Encounter Details Date Type Department Care Team (Late st Contact Info) Description 06/07/2022 [facility] [address] [place] [address] Denisse Dumont APRN [address] [place] [address] Intractable migraine without aura and without status [...] as of this encounter Plan of Treatment Not on file documented as of this encounter Visit Diagnoses Diagnosis Intractable migraine without aura and without status migrainosus- Primary Spell of abnormal behavior Unspecified papilledema Memory loss documented in this encounter Care Teams An/Ssn 2 4 Operator Relationship Specialty Start Date End Date Malinda Thompson APRN [address] [place] [address] PCP - General 10/04/24 documented as of this encounter
--- OUTSIDE RECORDS SUMMARY | 2025-04-01 10:22 | XMS_ITS | Clinical Summary ---
Author Organization [facility] Address [address] [place] [address] Care Team Providers Care Outsole Skiver Name Role Phone Malinda Thompson Leandro DYER Primary Care Provider [phone]- [phone] Allergies Active Allergy Reactions Criticality Noted Date [...] tablet 4 Active Vitamin D3 1.25 MG (42496 UT) capsule 5 Active cyanocobalamin (Vitamin B-12) 1000 MCG/ML injection 1 ml weekly x 4 then every 2 weeks 4 Active dicyclomine (Bentyl) 20 MG tablet 4 Active Viberzi 100 MG tablet TAKE 1 TABLET BY MOUTH TWICE DAILY MUST ADMINISTER WITH A MEAL/FOOD 5 Active ergocalciferol 1.25 MG (45928 UT) capsule Take 1 capsule by mouth [...] Smoking Tobacco: Former Cigarettes 1 2 2 001 - 2002 Passive Smoke Exposure: Past Smokeless [...] 10/28/2024 2:09 PM EDT Plan of Treatment Health Maintenance Due Date Last Done Comments [facility]-HIV Screening 1983 [facility]-Hepatitis C Screening 1983 [facility]-/Child/Adol SDOH Screenings 1983 [facility]-Varicella Vaccines (1 of 2 - 13+ 2-dose series) 1996 [facility]- SDOH Screenings 2001 [facility]-Adult SDOH Screenings 2001 [facility]-Hepatitis B Vaccines (1 of 3 - 19+ 3-dose series) 2002 [facility]-Pap Smear 2004 HPV Vaccines (1 - 3-dose SCDM series) 2010 [facility]-Cervical Cancer Screening 2013 [facility]-HPV/Cotest 2013 [id number] Vaccine (3 - Pfizer risk series) 05/05/2021 [...] Insurance [employer] Care Teams Outsole Skiver Relationship Specialty Start Date End Date Malinda Thompson APRN [address] [place] [id number] PCP - General 10/04/24
--- OUTSIDE RECORDS SUMMARY | 2025-04-01 10:22 | XMS_ITS | Clinical Summary ---
Author Organization [facility] Address [address] [facility] [address] [place] [address] Care Team Providers Care Boat Diesel Motor Mechanic Name Role Phone Otto Jamil MD Primary Care Provider + [phone] Lashae Sanchez MD Unavailable [phone] Allergies Active Allergy Reactions Criticality Noted Date [...] MG 24 hr tablet 3 Active rizatriptan BUMP GRADER OPERATOR (Maxalt-BUMP GRADER OPERATOR) 10 MG disintegrating tablet 2 Active B-D [...] age to complete this topic Insurance AETNA [facility] Care Teams Boat Diesel Motor Mechanic Relationship Specialty Start Date End Date Otto Jamil MD [address] [place] [address] PCP - General Adolescent Medicine 12/12/22 Lashae Sanchez MD [address] [place] [id number] Referring Physician Retina Ophthalmology 12/12/22
--- OUTSIDE RECORDS SUMMARY | 2025-04-01 10:22 | XMS_ITS | Encounter Summary ---
Author Organization [facility] Address [address] [place] [address] Care Team Providers Care Grid Maker Name Role Phone Malinda Thompson APRN Primary Care Provider [phone]- [phone] Encounter Details Date Type Department Care Team (Late st Contact Info) Description 07/26/2022 Community [facility] Community Practice [address] [place] [address] Denisse Dumont APRN [address] [place] [address] Papilledema (Primary Dx); Unspecified visual disturbance; Benign [...] hypertension documented in this encounter Care Teams Grid Maker Relationship Specialty Start Date End Date Malinda Thompson APRN [address] [place] [address] PCP - General 10/04/24 documented as of this encounter
--- OUTSIDE RECORDS SUMMARY | 2025-04-01 10:22 | XMS_ITS | Clinical Summary ---
Author Organization [facility] Address [address] [place] [address] Care Team Providers Care Pest Control Chemical Technician Name Role Phone Cody Rausch MD Primary Care Provider [phone] Allergies Active Allergy Reactions Criticality Noted Date [...] Active vitamin D (ERGOCALCIFEROL ) 1.25 MG (17610 UT) capsule capsule Take 1 capsule by [...] Description 05/16/2025 1:00 PM EST Office Visit [facility] [address] [facility] [address] [place] [address] Lakisha Graff, WELFARE VISITOR [address] [facility] [address] [place], [place] [id number] Health Maintenance Due Date Last Done Comments Annual Gynecologic Pelvic an d Breast Exam 1983 PAP SMEAR 2004 ANNUAL PHYSICAL 04/25/2016 HEPATITIS C SCREENING 04/25/2016 MAMMOGRAM 2023 INFLUENZA VACCINE 01/31/2025 TDAP/TD VACCINES (2 - Td or Tdap) 07/23/2025 016 Pneumococcal Vaccine 0-49 Aged Out No longer eligible based on patient's age to complete this topic Insurance [facility] Care Teams Pest Control Chemical Technician Relationship Specialty Start Date End Date Cody Rausch MD [address] [place] [address] [place] [id number] PCP - General Obstetrics and Gynecology 09/28/20
--- OUTSIDE RECORDS SUMMARY | 2025-04-01 10:22 | XMS_ITS | Encounter Summary ---
Author Organization [facility] Address [address] [place] [address] Care Team Providers Care Executive Assistant To General Counsel Name Role Phone Malinda Thompson APRN Primary Care Provider [phone]- [phone] Encounter Details Date Type Department Care Team (Late st Contact Info) Description 07/01/2022 Community [facility] Community Practice [address] [place] [address] Denisse Dumont APRN [address] [place] [address] Migraine without aura, intractable (Primary Dx); Change [...] papilledema documented in this encounter Care Teams Executive Assistant To General Counsel Relationship Specialty Start Date End Date Malinda Thompson APRN [address] [place] [address] PCP - General 10/04/24 documented as of this encounter
[2025-04-01 11:29] LABS: Albumin Level 4.2 g/dl (3.5-5.0); Blood Urea Nitrogen 14 mg/dl (7-17); Calcium 9.1 mg/dl (8.4-10.2); Carbon Dioxide 32 mmol/L (22.0-30.0); Creatinine,Serum 1.00 mg/dl (0.52-1.04); Estimated Glomerular Filt Rate 61 ml/min (>60); GFR (African American) 74 ML/MIN (>60); Glucose 80 mg/dl (74-100); Phosphorous 4.1 mg/dl (2.5-4.5)
[2025-04-01 11:39] LABS: Anion Gap 12.0 mEq/L (5-15); Chloride 99 mmol/L (98-107); Potassium 4.0 mmoL/L (3.5-5.1); Sodium 139 mmol/L (136-145)
[2025-04-01 11:42] LABS: Free T4 (Free Thyroxine) 0.76 ng/dl (0.78-2.19)
[2025-04-01 11:43] LABS: 25-OH Vitamin D, Total 34.7 ng/mL (30-100)
[2025-04-01 13:14] LABS: Thyroid Stimulating Hormone 3.20 uIU/mL (0.465-4.68)
[2025-04-02 18:10] LABS: Calcium, Ionized 4.9 mg/dL (4.5-5.6)
== END 2025-04-01 23:59 | disposition home or self-care (01) ==
LOC: LAB 10:18
PROVIDERS: PCP Nurse Practitioner Family; Visit Provider Student in an Organized Health Care Education/Training Program
DX: E55.9 Vitamin D deficiency, unspecified (principal); R79.89 Other specified abnormal findings of blood chemistry; E03.9 Hypothyroidism, unspecified
CPT/HCPCS: 36415; 80069; 82306; 82330; 83970; 84439; 84443

== ENCOUNTER 2025-04-29 09:05 | Outpatient (CLI) | payer OTHER, SELFPAY ==
--- OUTSIDE RECORDS SUMMARY | 2022-07-01 12:06 | XMS_ITS | Continuity of Care Document ---
Author Organization [facility] Address [address] [place] [address] Phone Care Team Providers Care Wire Galvanizer Name Role Phone José DEL RIO, Jaden Unavailable Unavailable Advance Directives Directive Yes / No Effective Date File Name No Information Encounters Encounter Description Practice Location Reason(s) For Visit Diagnoses Date Provider Providers Copied on Encounter [facility] , [address] [place], [address], [place] tel:[phone] [facility] No Information José Stanley. [address], [place], [id number], [place]. tel:[phone] 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 Family Member Type Diagnosis Age At Onset No Information Payers Payer name Insurance type Covered green party ID Authoriza tion(s) No Information 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 Type Description Quantity Date Captured Comments Sex Female Smoking Status No Information Chief Complaint And Reason For Visit No Information Reason For Referral Reason For Referral No Information History Of Present Illness Encounter Date Complaint History Of Prese nt Illness No Information Functional Status Date Functional Assessmen t No Information Instructions Date Instruction Additional Infor mation No Information Assessments Type Assessment Date No Information Patient Care Teams Name Effective Dates (start - stop) Status Members No Information
--- OUTSIDE RECORDS SUMMARY | 2025-04-29 09:18 | XMS_ITS | Encounter Summary ---
Author Organization [facility] Address [address] [place] [address] Care Team Providers Care Geophysical Data Technician Name Role Phone Malinda Thompson APRN Primary Care Provider [phone]- [phone] Encounter Details Date Type Department Care Team (Late st Contact Info) Description 06/07/2022 Community [facility] Community Practice [address] [place] [address] Denisse Dumont APRN [address] [place] [address] Intractable migraine without aura and without status [...] loss documented in this encounter Care Teams Geophysical Data Technician Relationship Specialty Start Date End Date Malinda Thompson APRN [address] [place] [address] PCP - General 10/04/24 documented as of this encounter
--- OUTSIDE RECORDS SUMMARY | 2025-04-29 09:19 | XMS_ITS | Encounter Summary ---
Author Organization [facility] Address [address] [place] [address] Care Team Providers Care Mid Level Clinician Name Role Phone Malinda Thompson APRN Primary Care Provider +1- [phone] Encounter Details Date Type Department Care Team (Late st Contact Info) Description 07/26/2022 Community [facility] Community Practice [address] [place] [address] Denisse Dumont APRN [address] [place] [address] Papilledema (Primary Dx); Unspecified visual disturbance; Benign [...] hypertension documented in this encounter Care Teams Mid Level Clinician Relationship Specialty Start Date End Date Malinda Thompson APRN [address] [place] [address] PCP - General 10/04/24 documented as of this encounter
--- OUTSIDE RECORDS SUMMARY | 2025-04-29 09:19 | XMS_ITS | Encounter Summary ---
Author Organization [facility] Address [address] [place] [address] Care Team Providers Care Lining Sewer Name Role Phone Malinda Thompson APRN Primary Care Provider [phone]- [phone] Encounter Details Date Type Department Care Team (Late st Contact Info) Description 07/01/2022 Community [facility] Community Practice [address] [place] [address] Denisse Dumont APRN [address] [place] [address] Migraine without aura, intractable (Primary Dx); Change [...] papilledema documented in this encounter Care Teams Lining Sewer Relationship Specialty Start Date End Date Malinda Thompson APRN [address] [place] [address] PCP - General 10/04/24 documented as of this encounter
--- OUTSIDE RECORDS SUMMARY | 2025-04-29 09:19 | XMS_ITS | Clinical Summary ---
Author Organization [facility] Address [address] [place] [address] Care Team Providers Care Final Installer Inspector Name Role Phone Malinda Thompson Leandro DYER Primary Care Provider +1- [phone] Allergies Active Allergy Reactions Criticality Noted Date [...] tablet 4 Active Vitamin D3 1.25 MG (70729 UT) capsule 5 Active cyanocobalamin (Vitamin B-12) 1000 MCG/ML injection 1 ml weekly x 4 then every 2 weeks 4 Active dicyclomine (Bentyl) 20 MG tablet 4 Active Viberzi 100 MG tablet TAKE 1 TABLET BY MOUTH TWICE DAILY MUST ADMINISTER WITH A MEAL/FOOD 5 Active ergocalciferol 1.25 MG (06028 UT) capsule Take 1 capsule by mouth [...] 2010 [facility]-Cervical Cancer Screening 2013 [facility]-HPV/Cotest 2013 [id number] Vaccine (3 - Pfizer risk series) 05/05/2021 [...] Insurance [employer] Care Teams Final Installer Inspector Relationship Specialty Start Date End Date Malinda Thompson APRN [address] [place] [phone] PCP - General 10/04/24
--- OUTSIDE RECORDS SUMMARY | 2025-04-29 09:19 | XMS_ITS | Clinical Summary ---
Author Organization [facility] Address [address] [facility] [address] [place] [address] Care Team Providers Care Rn Examiner Name Role Phone Otto Jamil MD Primary Care Provider + [phone] Lashae Sanchez MD Unavailable [phone] Allergies Active Allergy Reactions Criticality Noted Date [...] MG 24 hr tablet 3 Active rizatriptan RN HOUSE SUPERVISOR (Maxalt-RN HOUSE SUPERVISOR) 10 MG disintegrating tablet 2 Active B-D [...] 19+ 3-dose series) 2002 Pap Smear 2004 HPV Vaccines (1 - 3-dose SCD M series) 2010 Cervical Cancer Screening 2013 HPV/Cotest 2013 Mammogram [...] age to complete this topic Insurance AETNA [facility] Care Teams Rn Examiner Relationship Specialty Start Date End Date Otto Jamil MD [address] [place] [address] PCP - General Adolescent Medicine 12/12/22 Lashae Sanchez MD [address] [place] [address] Referring Physician Retina Ophthalmology 12/12/22
--- OUTSIDE RECORDS SUMMARY | 2025-04-29 09:19 | XMS_ITS | Patient Health Record ---
Author Organization [facility] Address [address] [facility] [address] [place] [address] Care Team Providers Care Beam Saw Operator Name Role Phone Mikaela Robertson Unavailable [phone] Reason For Referral No Information 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 [...]
--- OUTSIDE RECORDS SUMMARY | 2025-04-29 09:19 | XMS_ITS | Patient Health Record ---
Author Organization [facility] Address [address] [place] [id number] Care Team Providers Care Salvager Helper Name Role Phone Unknown, PCP Primary Care Provider Unavailabl e Reason For Referral No Information Plan Of Treatment No Information Insurance Providers Payer Name Payer Address Payer Phone Subscriber Number Group Number Insured Name Patient Relationship to Insured Coverage Start Date Coverage End Date PROMPT PAY/Bill to Patient Malathi Schilling Self - patient is the insured
--- OUTSIDE RECORDS SUMMARY | 2025-04-29 09:19 | XMS_ITS | Clinical Summary ---
Author Organization [facility] Address [address] [place] [address] Care Team Providers Care [employer] Name Role Phone Cody Rausch MD Primary Care Provider Allergies Active Allergy [...] Active vitamin D (ERGOCALCIFEROL ) 1.25 MG (44444 UT) capsule capsule Take 1 capsule by [...] Description 05/16/2025 1:00 PM EST Office Visit [facility] HEMATOLOGY & ONCOLOGY [address] [facility] [address] [place] [address] Lakisha Graff, PACKAGER MACHINE [address] [facility] [address] [place], [place] [phone] Health Maintenance Due Date Last Done Comments Annual Gynecologic Pelvic an d Breast Exam 1983 PAP SMEAR 2004 ANNUAL PHYSICAL 04/25/2016 HEPATITIS C SCREENING 04/25/2016 MAMMOGRAM 2023 INFLUENZA VACCINE 01/31/2025 TDAP/TD VACCINES (2 - Td or Tdap) 07/23/2025 016 Pneumococcal Vaccine 0-49 Aged Out No longer eligible based on patient's age to complete this topic Insurance [facility] Care Teams [employer] Relationship Specialty Start Date End Date Cody Rausch MD [address] [place] [address] [place] [address] PCP - General Obstetrics and Gynecology 09/28/20
--- NOTE | 2025-04-29 09:30 | XR_ITS ---
FINAL REPORT CLINICAL HISTORY: rule out osteoporosis COMPARISON: None FINDINGS: Using L1-4, the bone mineral density of the spine is 1.290 g/cm2, corresponding to T-score of 2.2, within normal limits but likely falsely elevated secondary to hypertrophic changes. Using the left hip, the bone mineral density of the femoral neck is 1.047 g/cm2, corresponding to a T-score of 1.8, within normal limits. Using the right hip, the bone mineral density of the femoral neck is 0.975 g/cm2, corresponding to a T-score of 1.1, within normal limits. FRAX not reported because all T-scores at or above -1.0. NOTE: T-score: Standard deviation compared with peak bone mass of young adult mean. *Following the recommendations of the International Society of Bone densitometry, classification of hip BMD is based on the lower of two T-scores; total hip or femoral neck. IMPRESSION: Normal bone mineral density of the lumbar spine and hips. Reviewed, Interpreted and Dictated by Jorge Kemp MD Transcribed by Jessenia Romero Authenticated and [facility]
== END 2025-04-29 23:59 | disposition home or self-care (01) ==
LOC: RAD 09:05
PROVIDERS: PCP Nurse Practitioner Family; Visit Provider Student in an Organized Health Care Education/Training Program
DX: E21.0 Primary hyperparathyroidism (principal)
CPT/HCPCS: 77081